=== PATIENT | female | born 1980 | race Caucasian/White ===

== ENCOUNTER 2016-04-20 16:01 | Inpatient (IN) | payer OTHER ==
[2016-04-20 16:35] VITALS: BMI 33.7
[2016-04-20] MEDS ORDERED: METHADONE HCL 10 MG TABLET (FOR DETOX USE ONLY) PO ONE ×2 (16:47→23:00)
[2016-04-20] MEDS ORDERED: IBUPROFEN 400 MG TABLET (FP) PO PRN (16:47)
[2016-04-20] MEDS ORDERED: NICOTINE POLACRILEX 4 MG GUM BC PRN (16:47)
[2016-04-20] MEDS ORDERED: guaiFENesin/D-METHORPHAN HB 10 ML UNIT-DOSE CUPS PO PRN (16:47)
[2016-04-20] MEDS ORDERED: LOPERAMIDE HCL 2 MG CAPSULE PO PRN (16:47)
[2016-04-20] MEDS ORDERED: MAGNESIUM HYDROX 2400MG/30ML ORAL SUSPENSION 30 ML CUP PO PRN (16:47)
[2016-04-20] MEDS ORDERED: P-EPHED 60MG/TRIPROLIDI 2.5MG TABLET PO PRN (16:47)
[2016-04-20] MEDS ORDERED: MENTHOL/PHENOL 1 EACH UD MM PRN (16:47)
[2016-04-20] MEDS ORDERED: MAGNESIUM CITRATE 300 ML BOTTLE PO PRN (16:47)
[2016-04-20] MEDS ORDERED: hydrOXYzine PAMOATE 50 MG CAPSULE (FP) PO PRN (16:47)
[2016-04-20] MEDS ORDERED: ACETAMINOPHEN 325 MG TABLET (FP) PO PRN (16:47)
[2016-04-20] MEDS ORDERED: MAG HYDROX/AL HYDROX/SIMETH 30 ML UNIT-DOSE CUP PO PRN (16:47)
[2016-04-20] MEDS ORDERED: ALBUTEROL SO4 6.7 GM HFA INHALER IH PRN (16:50)
--- NOTE | 2016-04-20 16:57 | HP ---
COWS - Scale Resting Pulse: 1= [place] 81-100 Sweatin=Flushed/Facial Moisture Restless Observation: 3= Extraneous Movement Pupil Size: 2= Moderately Dilated Bone or Joint Aches: 2= Severe Diffuse Aches Runny Nose/ Eye Tearin= Runny Nose/Eyes GI Upset > 30mins: 2= Nausea/Diarrhea Tremor Observation: 2= Slight Tremor Visible Yawning Observation: 1= 1-2x During Session Anxiety or Irritability: 2=Irritable/Anxious Goose Flesh Skin: 0=Smooth Skin COWS Score: 19 Admission ROS S - HPI Chief Complaint: WITHDRAWAL SX. Allergies/Adverse Reactions: Allergies Allergy/AdvReac Type Severity Reaction Status Date / Time No Known Allergies Allergy Verified 04/20/16 16:07 History of Present Illness: 35 Y/O WOMAN WITH A LONG HX. OF HEROIN DEPENDENCE IS ADMITTED FOR DETOX. PT. HAS BEEN IN PREVIOUS DETOX,SHE DENIES BEING DRUG FREE FOR A SIGNIFICANT AMOUNT OF TIME. Exam Limitations: No Limitations - Ebola screening Have you traveled outside of the country in the last 21 days: No Have you had contact with anyone from an Ebola affected area: No Have you been sick,other than usual withdrawal symptoms: No Do you have a fever: No - Review of Systems Constitutional: Diaphoresis EENT: reports: Nose Congestion Respiratory: reports: Cough Cardiac: reports: No Symptoms Reported GI: reports: Nausea, Vomiting, Abdominal cramping : reports: No Symptoms Reported Musculoskeletal: reports: Back Pain, Joint Pain, Muscle Pain Integumentary: reports: Sweating Neuro: reports: Tingling, Tremors Endocrine: reports: No Symptoms Reported Hematology: reports: No Symptoms Reported Psychiatric: reports: Anxious Other Systems: Reviewed and Negative Patient History - Patient Medical History Hx Anemia: No Hx Asthma: Yes Hx Chronic Obstructive Pulmonary Disease (COPD): No Hx Cancer: No Hx Cardiac Disorders: No Hx Congestive Heart Failure: No Hx Hypertension: No (BODERLINE) Hx Hypercholesterolemia: No Hx Pacemaker: No HX Cerebrovascular Accident: No Hx Seizures: No Hx Diabetes: No Hx Gastrointestinal Disorders: No Hx Liver Disease: No Hx Genitourinary Disorders: No Hx Sexually Transmitted Disorders: No Hx Renal Disease (ESRD): No Hx Thyroid Disease: No Hx Human Immunodeficiency Virus (HIV): No Hx Hepatitis C: No Hx Depression: No Hx Suicide Attempt: No Hx Bipolar Disorder: Yes Hx Schizophrenia: No - Patient Surgical History Past Surgical History: Yes Hx Neurologic Surgery: No Hx Cataract Extraction: No Hx Cardiac Surgery: No Hx Lung Surgery: No Hx Breast Surgery: No Hx Breast Biopsy: No Hx Abdominal Surgery: No Hx Appendectomy: No Hx Cholecystectomy: No Hx Genitourinary Surgery: No Hx Section: No Hx Orthopedic Surgery: Yes (LEFT HAMMER TOE) Other Surgical History: WISDOM TEETH REMOVAL IN 2011 Anesthesia Reaction: No - PPD History Previous Implant?: Yes Documented Results: Negative w/proof Date: 10/31/15 Results: 0 mm PPD to be Administered?: No - Reproductive History Patient is a Female of Child Bearing Age (11 -55 yrs old): Yes Last Menstrual Period: 04/04/16 Patient : No - Smoking Cessation Smoking history: Current every day smoker Have you smoked in the past 12 months: Yes Aproximately how many cigarettes per day: 40 Cigars Per Day: 0 Hx Chewing Tobacco Use: No Initiated information on smoking cessation: Yes 'Breaking Loose' booklet given: 04/20/16 - Substance & Tx. History Hx Alcohol Use: No Hx Substance Use: Yes Substance Use Type: Heroin, Marijuana (WHENEVER AVAILABLE) Hx Substance Use Treatment: Yes (DETOX) - Substances Abused Heroin Route: Inhalation Frequency: Daily Amount used: 30 bags Age of first use: 34 Date of Last Use: 04/19/16 Family Disease History - Family Disease History Family Disease History: Other: Mother (HEROIN,HIV) Admission Physical Exam BHS - Vital Signs Vital Signs: Vital Signs - 24 hr 04/20/16 16:05 Temperature 98.9 F Pulse Rate 92 H Respiratory 18 Rate Blood Pressure 132/93 - Physical General Appearance: Yes: Tremorous, Irritable, Sweating, Anxious HEENTM: Yes: Nasal Congestion, Rhinorrhea Respiratory: Yes: Chest Non-Tender, Lungs Clear Neck: Yes: Supple Breast: Yes: Breast Exam Deferred Cardiology: Yes: Regular Rhythm, Regular Rate, S1, S2 Abdominal: Yes: Normal Bowel Sounds, Non Tender, Soft Genitourinary: Yes: Within Normal Limits Back: Yes: Within Normal Limits Musculoskeletal: Yes: Within Normal Limits Extremities: Yes: Tremors Neurological: Yes: Fully Oriented, Alert Integumentary: Yes: Diaphoresis Lymphatic: Yes: Within Normal Limits - Diagnostic (1) Asthma Current Visit: Yes Status: Acute Qualifiers: Asthma severity: mild intermittent Asthma complication type: uncomplicated Qualified Code(s): J45.20 - Mild intermittent asthma, uncomplicated (2) Cannabis dependence Current Visit: Yes Status: Acute (3) Nicotine dependence Current Visit: Yes Status: Acute Qualifiers: Nicotine product type: cigarettes Substance use status: uncomplicated Qualified Code(s): F17.210 - Nicotine dependence, cigarettes, uncomplicated (4) Opioid dependence with withdrawal Current Visit: Yes Status: Acute Cleared for Admission S - Detox or Rehab [facility] Level of Care: Medically Managed Detox Regimen/Protocol: Methadone [facility] Breath Alcohol Content Breath Alcohol Content: 0 Urine Pregancy Test - Result Urine Test Results: Negative- NO Line Present Urine Drug Screen - Results Drug Screen Negative: No Urine Drug Screen Results: THC-Marijuana, OPI-Opiates, MTD-Methadone
[2016-04-20] MEDS: NICOTINE 21 MG/24 HOURS TOPICAL PATCH TD SCH (17:49)
[2016-04-20] MEDS: diazePAM 5 MG TABLET PO PRN ×2 (17:50→22:33)
[2016-04-20] MEDS: THIAMINE HCL 100 MG TABLET (FP) PO SCH (22:33)
[2016-04-20] MEDS: diphenhydrAMINE HCL 50 MG CAPSULE PO PRN (22:33)
--- NOTE | 2016-04-21 09:45 | EKG ---
Test Reason : Blood Pressure : / mmHG Vent. Rate : 066 BPM Atrial Rate : 066 BPM P-R Int : 124 ms QRS Dur : 082 ms QT Int : 420 ms P-R-T Axes : 070 074 051 degrees QTc Int : 440 ms NORMAL SINUS RHYTHM POSSIBLE LEFT ATRIAL ENLARGEMENT NO PREVIOUS ECGS AVAILABLE Confirmed by DELVIN CADE MD ([id number]) on 04/21/2016 9:44:51 AM Referred By: Confirmed By:DELVIN CADE MD
[2016-04-21] MEDS ORDERED: METHADONE HCL 10 MG TABLET (FOR DETOX USE ONLY) PO ONE (10:00)
[2016-04-21 10:16] LABS: MCH 26.4 pg (25.7-33.7); MCHC 32.7 g/dl (32.0-36.0); MEAN CELL VOLUME 80.7 fl (80-96); MEAN PLT VOLUME 8.5 fl (7.5-11.1); PLATELET COUNT 259 K/MM3 (134-434); RDW 14.9 % (11.6-15.6); WHITE BLOOD COUNT 9.6 K/mm3 (4.0-10.0)
[2016-04-21 10:23] LABS: URINE APPEARANCE CLEAR; URINE BILIRUBIN NEGATIVE (NEGATIVE); URINE BLOOD NEGATIVE (NEGATIVE); URINE COLOR LTYELLOW; URINE GLUCOSE (UA) NEGATIVE (NEGATIVE); URINE KETONE NEGATIVE (NEGATIVE); URINE LEUK ESTERASE TRACE (NEGATIVE); URINE NITRITE NEGATIVE (NEGATIVE); URINE PROTEIN NEGATIVE (NEGATIVE); URINE UROBILINOGEN NEGATIVE E.U./dl (0.2-1.0)
[2016-04-21 10:25] LABS: URINE BACTERIA RARE /hpf (NONE SEEN); URINE MUCUS RARE; URINE RBC 3 /hpf (0-3); URINE WBC 3 /hpf (3-5)
[2016-04-21 10:39] LABS: ALBUMIN 3.5 g/dl (3.4-5.0); ANION GAP 9 (8-16); CALCIUM 8.8 mg/dL (8.5-10.1); CO2 27 mmol/L (21-32); GLUCOSE,RANDOM 85 mg/dL (74-106)
[2016-04-21 10:44] LABS: ALK PHOS 65 U/L (45-117); BILIRUBIN,TOTAL 0.3 mg/dL (0.2-1.0); CREATININE 0.8 mg/dL (0.55-1.02); SGOT/AST 17 U/L (15-37); SGPT/ALT 27 U/L (12-78); TOT PROT 6.6 g/dl (6.4-8.2)
[2016-04-21] MEDS: PRENATAL VITAMINS W/ FOLIC ACID TABLET (FP) PO SCH (10:46)
[2016-04-21] MEDS: NICOTINE 21 MG/24 HOURS TOPICAL PATCH TD SCH (10:46)
[2016-04-21] MEDS: diazePAM 5 MG TABLET PO PRN ×3 (10:47→22:16)
[2016-04-21 12:27] LABS: HIV 1 & 2 AB NEGATIVE; HIV 1 AGp24 NEGATIVE
--- NOTE | 2016-04-21 14:53 | PN ---
BHS COWS - Scale Resting Pulse: 1= [place] 81-100 Sweatin=Flushed/Facial Moisture Restless Observation: 1= Difficult to Sit Still Pupil Size: 0= Normal to Room Light Bone or Joint Aches: 2= Severe Diffuse Aches Runny Nose/ Eye Tearin= Runny Nose/Eyes GI Upset > 30mins: 2= Nausea/Diarrhea Tremor Observation of Outstretched Hands: 2= Slight Tremor Visible Yawning Observation: 1= 1-2x During Session Anxiety or Irritability: 2=Irritable/Anxious Goose Flesh Skin: 0=Smooth Skin COWS Score: 15 BHS Progress Note (SOAP) Subjective: ANXIETY,SWEATING,INTERRUPTED SLEEP,RESTLESS Objective: 04/21/16 14:52 Last Vital Signs Temp Pulse Resp BP Pulse Ox 98.6 F 86 18 135/71 04/21/16 10:00 04/21/16 14:00 04/21/16 14:00 04/21/16 14:00 Laboratory Last Values WBC 9.6 K/mm3 (4.0-10.0) 04/21/16 07:20 RBC 5.00 M/mm3 (3.60-5.2) 04/21/16 07:20 Hgb 13.2 GM/dL (10.7-15.3) 04/21/16 07:20 Hct 40.4 % (32.4-45.2) 04/21/16 07:20 MCV 80.7 fl (80-96) 04/21/16 07:20 MCHC 32.7 g/dl (32.0-36.0) 04/21/16 07:20 RDW 14.9 % (11.6-15.6) 04/21/16 07:20 Plt Count 259 K/MM3 (134-434) 04/21/16 07:20 MPV 8.5 fl (7.5-11.1) 04/21/16 07:20 Sodium 141 mmol/L (136-145) 04/21/16 07:20 Potassium 4.1 mmol/L (3.5-5.1) 04/21/16 07:20 Chloride 105 mmol/L (98-107) 04/21/16 07:20 Carbon Dioxide 27 mmol/L (21-32) 04/21/16 07:20 Anion Gap 9 (8-16) 04/21/16 07:20 BUN 10 mg/dL (7-18) D 04/21/16 07:20 Creatinine 0.8 mg/dL (0.55-1.02) 04/21/16 07:20 Creat Clearance w eGFR > 60 (>60) 04/21/16 07:20 Random Glucose 85 mg/dL (74-106) 04/21/16 07:20 Calcium 8.8 mg/dL (8.5-10.1) 04/21/16 07:20 Total Bilirubin 0.3 mg/dL (0.2-1.0) 04/21/16 07:20 AST 17 U/L (15-37) D 04/21/16 07:20 ALT 27 U/L (12-78) 04/21/16 07:20 Alkaline Phosphatase 65 U/L (45-117) 04/21/16 07:20 Total Protein 6.6 g/dl (6.4-8.2) 04/21/16 07:20 Albumin 3.5 g/dl (3.4-5.0) 04/21/16 07:20 Urine Color Ltyellow 04/21/16 07:20 Urine Appearance Clear 04/21/16 07:20 Urine pH 6.0 (5.0-8.0) 04/21/16 07:20 Ur Specific [place] 1.016 (1.001-1.035) 04/21/16 07:20 Urine Protein Negative (NEGATIVE) 04/21/16 07:20 Urine Glucose (UA) Negative (NEGATIVE) 04/21/16 07:20 Urine Ketones Negative (NEGATIVE) 04/21/16 07:20 Urine Blood Negative (NEGATIVE) 04/21/16 07:20 Urine Nitrite Negative (NEGATIVE) 04/21/16 07:20 Urine Bilirubin Negative (NEGATIVE) 04/21/16 07:20 Urine Urobilinogen Negative E.U./dl (0.2-1.0) 04/21/16 07:20 Ur Leukocyte Esterase Trace (NEGATIVE) H D 04/21/16 07:20 Urine RBC 3 /hpf (0-3) 04/21/16 07:20 Urine WBC 3 /hpf (3-5) 04/21/16 07:20 Ur Epithelial Cells Rare /hpf (FEW) 04/21/16 07:20 Urine Bacteria Rare /hpf (NONE SEEN) 04/21/16 07:20 Urine Mucus Rare 04/21/16 07:20 RPR Titer Reactive 1:8 (NONREACTIVE) H 04/21/16 07:20 HIV 1&2 Antibody Screen Negative 04/21/16 07:20 HIV P24 Antigen Negative 04/21/16 07:20 LABS NOTED Assessment: 04/21/16 14:53 WITHDRAWAL SX. Plan: CONTINUE DETOX
[2016-04-21] MEDS: THIAMINE HCL 100 MG TABLET (FP) PO SCH (22:16)
[2016-04-21] MEDS: diphenhydrAMINE HCL 50 MG CAPSULE PO PRN (22:16)
[2016-04-22] MEDS ORDERED: ZOLPIDEM TARTRATE 5 MG TABLET PO STA (08:05)
--- NOTE | 2016-04-22 09:10 | CONSULT ---
[facility] Psychiatric Consult - Data Date of interview: 04/22/16 Admission source: [facility] Identifying data: This is 35 years old female with history of Bipolar disorder intoxicated with: Alcohol, Opioids, Cannabis and Nicotine Substance Abuse History: - Smoking Cessation. Smoking history: Current every day smoker. Have you smoked in the past 12 months: Yes. Aproximately how many cigarettes per day: 40. Cigars Per Day: 0. Hx Chewing Tobacco Use: No. Initiated information on smoking cessation: Yes. 'Breaking Loose' booklet given : 04/20/16. - Substance & Tx. History. Hx Alcohol Use: No. Hx Substance Use: Yes. Substance Use Type: Heroin, Marijuana (WHENEVER AVAILABLE). Hx Substance Use Treatment: Yes (DETOX). - Substances Abused. Heroin. Route: Inhalation. Frequency: Daily. Amount used: 30 bags. Age of first use: 34. Date of Last Use: 04/19/16 Medical History: Syncope history Psychiatric History: Patient reports to carry Bipolar disorder, reports takig prior to admission: Seroquel 100mg po qhs. Ambien 10mg po qhs Physical/Sexual Abuse/Trauma History: Denies Additional Comment: Seroquel 100mg po qhs. Ambien 10mg po qhs Mental Status Exam - Mental Status Exam Alert and Oriented to: Person Cognitive Function: Fair Patient Appearance: Unkempt Mood: Sad Affect: Flat Patient Behavior: Cooperative Speech Pattern: Delayed Voice Loudness: Mildly Soft/Quiet Thought Process: Goal Oriented Thought Disorder: Being Controlled Hallucinations: Denies Suicidal Ideation: Denies Insight/Judgement: Fair Sleep: Difficulty falling asleep Appetite: Fair Muscle strength/Tone: Normal Gait/Station: Normal Additional Comments: Seroquel 100mg po qhs. Ambien 10mg po qhs Psychiatric Findings - Problem List ([place] 1, 2,3) (1) Cannabis dependence Current Visit: Yes Status: Acute (2) Nicotine dependence Current Visit: Yes Status: Acute Qualifiers: Nicotine product type: cigarettes Substance use status: uncomplicated Qualified Code(s): F17.210 - Nicotine dependence, cigarettes, uncomplicated (3) Opioid dependence with withdrawal Current Visit: Yes Status: Acute (4) Drug-induced mood disorder Current Visit: No Status: Acute (5) Bipolar disorder Current Visit: No Status: Suspected - Initial Treatment Plan Initial Treatment Plan: Seroquel 100mg po qhs. Ambien 10mg po qhs
[2016-04-22] MEDS ORDERED: METHADONE HCL 5 MG TABLET (FOR DETOX USE ONLY) PO ONE (10:00)
[2016-04-22] MEDS: PRENATAL VITAMINS W/ FOLIC ACID TABLET (FP) PO SCH (10:19)
[2016-04-22] MEDS: diazePAM 5 MG TABLET PO PRN ×3 (10:20→22:15)
[2016-04-22] MEDS: NICOTINE 21 MG/24 HOURS TOPICAL PATCH TD SCH (10:20)
--- NOTE | 2016-04-22 10:59 | PN ---
S COWS - Scale Resting Pulse: 1= [place] 81-100 Sweatin= Chills/Flushing Restless Observation: 1= Difficult to Sit Still Pupil Size: 1= Pupils >than Normal Bone or Joint Aches: 2= Severe Diffuse Aches Runny Nose/ Eye Tearin= Nasal Congestion GI Upset > 30mins: 2= Nausea/Diarrhea Tremor Observation of Outstretched Hands: 2= Slight Tremor Visible Yawning Observation: 1= 1-2x During Session Anxiety or Irritability: 2=Irritable/Anxious Goose Flesh Skin: 3=Piloerection COWS Score: 17 BHS Progress Note (SOAP) Subjective: nausea, sweats, interrupted sleep, anxiety, tremor Objective: 04/22/16 10:58 Vital Signs - 24 hr 04/21/16 04/21/16 04/21/16 14:00 18:01 21:37 Temperature 97.7 F 98.2 F Pulse Rate 86 90 57 L Respiratory 18 20 16 Rate Blood Pressure 135/71 128/68 132/79 04/22/16 04/22/16 04/22/16 00:30 03:30 05:04 Temperature 97.9 F Pulse Rate 53 L Respiratory 18 18 18 Rate Blood Pressure 116/55 04/22/16 10:00 Temperature 98.1 F Pulse Rate 84 Respiratory 18 Rate Blood Pressure 123/83 Laboratory Tests 04/21/16 04/21/16 04/21/16 07:20 07:20 07:20 WBC 9.6 RBC 5.00 Hgb 13.2 Hct 40.4 MCV 80.7 MCHC 32.7 RDW 14.9 Plt Count 259 MPV 8.5 Sodium 141 Potassium 4.1 Chloride 105 Carbon Dioxide 27 Anion Gap 9 BUN 10 D Creatinine 0.8 Creat Clearance w eGFR > 60 Random Glucose 85 Calcium 8.8 Total Bilirubin 0.3 AST 17 D ALT 27 Alkaline Phosphatase 65 Total Protein 6.6 Albumin 3.5 Urine Color Urine Appearance Urine pH Ur Specific [place] Urine Protein Urine Glucose (UA) Urine Ketones Urine Blood Urine Nitrite Urine Bilirubin Urine Urobilinogen Ur Leukocyte Esterase Urine RBC Urine WBC Ur Epithelial Cells Urine Bacteria Urine Mucus RPR Titer T.pallidum Ab (MHA) HIV 1&2 Antibody Screen Negative HIV P24 Antigen Negative 04/21/16 04/21/16 07:20 07:20 WBC RBC Hgb Hct MCV MCHC RDW Plt Count MPV Sodium Potassium Chloride Carbon Dioxide Anion Gap BUN Creatinine Creat Clearance w eGFR Random Glucose Calcium Total Bilirubin AST ALT Alkaline Phosphatase Total Protein Albumin Urine Color Ltyellow Urine Appearance Clear Urine pH 6.0 Ur Specific [place] 1.016 Urine Protein Negative Urine Glucose (UA) Negative Urine Ketones Negative Urine Blood Negative Urine Nitrite Negative Urine Bilirubin Negative Urine Urobilinogen Negative Ur Leukocyte Esterase Trace H D Urine RBC 3 Urine WBC 3 Ur Epithelial Cells Rare Urine Bacteria Rare Urine Mucus Rare RPR Titer Reactive 1:8 H T.pallidum Ab (MHA) Non reactive HIV 1&2 Antibody Screen HIV P24 Antigen Assessment: 04/22/16 10:59 rpr +ve, confirmatory test neg, false pos+ no treatment necessary, withdrawal sx Plan: cont detox, fluids, encoruage ambualtion
[2016-04-22] MEDS: THIAMINE HCL 100 MG TABLET (FP) PO SCH (22:15)
[2016-04-22] MEDS: QUEtiapine FUMARATE 100 MG TABLET (FP) PO SCH (22:15)
[2016-04-22] MEDS: ZOLPIDEM TARTRATE 10 MG TABLET (PARK CARE ONLY) PO PRN (22:15)
[2016-04-23] MEDS ORDERED: METHADONE HCL 5 MG TABLET (FOR DETOX USE ONLY) PO ONE (10:00)
[2016-04-23] MEDS: PRENATAL VITAMINS W/ FOLIC ACID TABLET (FP) PO SCH (10:11)
[2016-04-23] MEDS: NICOTINE 21 MG/24 HOURS TOPICAL PATCH TD SCH (10:12)
[2016-04-23] MEDS: diazePAM 5 MG TABLET PO PRN ×2 (10:12→14:35)
--- NOTE | 2016-04-23 10:30 | PN ---
BHS Progress Note (SOAP) Subjective: nausea back pain sweats shakes interrupted sleep Objective: 04/23/16 10:29 Vital Signs Temperature 98.8 F 04/23/16 09:38 Pulse Rate 83 04/23/16 09:38 Respiratory Rate 16 04/23/16 09:38 Blood Pressure 112/74 04/23/16 09:38 O2 Sat by Pulse Oximetry (%) awake/alert ambulating no acute distress Assessment: 04/23/16 10:30 withdrawal sx Plan: continue detox increase fluids lidocaine patch motrin/tylenol prn
[2016-04-23] MEDS ORDERED: ONDANSETRON *ODT* 4 MG TABLET SL PRN (10:32)
[2016-04-23] MEDS: LIDOCAINE 5% TOPICAL PATCH TP SCH (12:35)
[2016-04-23] MEDS: THIAMINE HCL 100 MG TABLET (FP) PO SCH (22:19)
[2016-04-23] MEDS: QUEtiapine FUMARATE 100 MG TABLET (FP) PO SCH (22:19)
[2016-04-23] MEDS: ZOLPIDEM TARTRATE 10 MG TABLET (PARK CARE ONLY) PO PRN (22:19)
--- NOTE | 2016-04-24 09:35 | DS ---
[facility] Detox Discharge Summary Admission Date: 04/20/16 Discharge Date: 04/24/16 - History Present History: Cannabis Dependence, Opioid Dependence - Physical Exam Results Vital Signs: Vital Signs Temperature 98.2 F 04/24/16 06:33 Pulse Rate 68 04/24/16 06:33 Respiratory Rate 18 04/24/16 06:33 Blood Pressure 107/53 04/24/16 06:33 O2 Sat by Pulse Oximetry (%) - Treatment Hospital Course: Detox Protocol Followed, Detoxed Safely, Responded well, Discharged Condition Good - Medication Discharge Medications: Ambulatory Orders Gabapentin [Neurontin -] 300 mg PO Q8H 10/29/15 Quetiapine Fumarate [Seroquel] 100 tab PO BID 10/29/15 Sertraline HCl [Zoloft] 50 mg PO DAILY 10/29/15 Tramadol HCl [Ultram] 50 mg PO TID PRN 10/29/15 Quetiapine Fumarate [Seroquel -] 100 mg PO HS #30 tablet 10/30/15 Sertraline HCl [Zoloft -] 50 mg PO DAILY #30 tablet 10/30/15 Zolpidem Tartrate [Ambien] 10 mg PO HS #14 tablet MDD 10 10/30/15 Albuterol Sulfate Inhaler - [Ventolin HFA Inhaler -] 2 puff IH Q4H PRN #1 inhaler 11/03/15 Quetiapine Fumarate [Seroquel] 100 mg PO HS #30 tablet 04/22/16 Zolpidem Tartrate [Ambien] 10 mg PO HS #14 tablet MDD 10 04/22/16 - Diagnosis (1) Asthma Current Visit: Yes Status: Acute Qualifiers: Asthma severity: mild intermittent Asthma complication type: uncomplicated Qualified Code(s): J45.20 - Mild intermittent asthma, uncomplicated (2) Cannabis dependence Current Visit: Yes Status: Chronic (3) Nicotine dependence Current Visit: Yes Status: Chronic Qualifiers: Nicotine product type: cigarettes Substance use status: uncomplicated Qualified Code(s): F17.210 - Nicotine dependence, cigarettes, uncomplicated (4) Opioid dependence with withdrawal Current Visit: Yes Status: Chronic (5) Drug-induced mood disorder Current Visit: Yes Status: Chronic (6) Bipolar disorder Current Visit: Yes Status: Chronic Qualifiers: Current episode severity: unspecified - AMA Did Patient Leave Against Medical Advice: No
[2016-04-24] MEDS: PRENATAL VITAMINS W/ FOLIC ACID TABLET (FP) PO SCH (09:56)
[2016-04-24] MEDS: LIDOCAINE 5% TOPICAL PATCH TP SCH (09:56)
[2016-04-24] MEDS: NICOTINE 21 MG/24 HOURS TOPICAL PATCH TD SCH (09:57)
[2016-04-24] MEDS ORDERED: METHADONE HCL 10 MG TABLET (FOR DETOX USE ONLY) PO ONE (10:00)
[2016-04-24 10:02] VITALS: BP 90/51; PULSE 90; TEMP 95.5
[2016-04-25] MEDS ORDERED: METHADONE HCL 5 MG TABLET (FOR DETOX USE ONLY) PO ONE (06:00)
== END 2016-04-24 10:19 | disposition home or self-care (01) | DRG 773 ==
LOC: YASAS 16:01 → Y6N 16:33
PROVIDERS: ADMIT Internal Medicine Addiction Medicine; ATTEND Internal Medicine Addiction Medicine
PROC: HZ2ZZZZ Detoxification Services for Substance Abuse Treatment (ICD-10-PCS; principal; 2016-04-24)
DX: F11.23 Opioid dependence with withdrawal (principal); F12.20 Cannabis dependence, uncomplicated; F17.210 Nicotine dependence, cigarettes, uncomplicated; F19.24 Other psychoactive substance dependence with psychoactive substance-induced mood disorder; F32.9 Major depressive disorder, single episode, unspecified; J45.20 Mild intermittent asthma, uncomplicated
CPT/HCPCS: 36415; 80053; 81003; 81015; 85027; 86593; 86780; 87389; 93005; 93010

== ENCOUNTER 2016-11-20 18:53 | Inpatient (IN) | payer OTHER ==
[2016-11-20 19:15] VITALS: BMI 33.3
--- NOTE | 2016-11-20 19:36 | HP ---
COWS - Scale Resting Pulse: 1= [place] 81-100 Sweatin= Chills/Flushing Restless Observation: 1= Difficult to Sit Still Pupil Size: 0= Normal to Room Light Bone or Joint Aches: 2= Severe Diffuse Aches Runny Nose/ Eye Tearin= Runny Nose/Eyes GI Upset > 30mins: 1= Stomach Cramp Tremor Observation: 2= Slight Tremor Visible Yawning Observation: 1= 1-2x During Session Anxiety or Irritability: 2=Irritable/Anxious Goose Flesh Skin: 0=Smooth Skin COWS Score: 13 Admission [facility] Chief Complaint: withdrawal sx Allergies/Adverse Reactions: Allergies Allergy/AdvReac Type Severity Reaction Status Date / Time No Known Allergies Allergy Verified 04/20/16 16:07 History of Present Illness: 36 years old female with long history of opiate marijuana nicotine dependence has asthma and bipolar ii is admitted to detox Exam Limitations: No Limitations - Ebola screening Have you traveled outside of the country in the last 21 days: No Have you had contact with anyone from an Ebola affected area: No Have you been sick,other than usual withdrawal symptoms: No Do you have a fever: No - Review of Systems Constitutional: Changes in sleep, Weight Stable EENT: reports: No Symptoms Reported Respiratory: reports: SOB with Exertion Cardiac: reports: No Symptoms Reported GI: reports: Nausea, Poor Fluid Intake, Abdominal cramping : reports: No Symptoms Reported Musculoskeletal: reports: Back Pain, Joint Pain, Muscle Pain, Neck Pain Integumentary: reports: No Symptoms Reported Neuro: reports: Tremors Endocrine: reports: No Symptoms Reported Hematology: reports: No Symptoms Reported Psychiatric: reports: Judgement Intact, Orientated x3, Anxious, Depressed Other Systems: Reviewed and Negative Patient History - Patient Medical History Hx Anemia: No Hx Asthma: Yes Hx Chronic Obstructive Pulmonary Disease (COPD): No Hx Cancer: No Hx Cardiac Disorders: No Hx Congestive Heart Failure: No Hx Hypertension: No (BODERLINE) Hx Hypercholesterolemia: No Hx Pacemaker: No HX Cerebrovascular Accident: No Hx Seizures: No Hx Dementia: No Hx Diabetes: No Hx Gastrointestinal Disorders: No Hx Liver Disease: No Hx Genitourinary Disorders: No Hx Sexually Transmitted Disorders: No Hx Renal Disease (ESRD): No Hx Thyroid Disease: No Hx Human Immunodeficiency Virus (HIV): No Hx Hepatitis C: No Hx Depression: No Hx Suicide Attempt: Yes (04/2016 overdose) Hx Bipolar Disorder: Yes Hx Schizophrenia: No - Patient Surgical History Past Surgical History: Yes Hx Neurologic Surgery: No Hx Cataract Extraction: No Hx Cardiac Surgery: No Hx Lung Surgery: No Hx Breast Surgery: No Hx Breast Biopsy: No Hx Abdominal Surgery: No Hx Appendectomy: No Hx Cholecystectomy: No Hx Genitourinary Surgery: No Hx Section: No Hx Orthopedic Surgery: Yes (LEFT HAMMER TOE) Hx Hysterectomy: No Other Surgical History: WISDOM TEETH REMOVAL IN 2011 Anesthesia Reaction: No - PPD History Previous Implant?: Yes Documented Results: Negative w/proof Implanted On Prior [facility] Admission?: Yes Date: 10/31/15 Results: 0 mm PPD to be Administered?: Yes - Reproductive History Patient is a Female of Child Bearing Age (11 -55 yrs old): Yes Last Menstrual Period: 11/20/16 Patient : No - Smoking Cessation Smoking history: Current every day smoker Have you smoked in the past 12 months: Yes Aproximately how many cigarettes per day: 40 Cigars Per Day: 0 Hx Chewing Tobacco Use: No Initiated information on smoking cessation: Yes 'Breaking Loose' booklet given: 11/20/16 - Substance & Tx. History Hx Alcohol Use: No Hx Substance Use: Yes Substance Use Type: Marijuana, Opiates Hx Substance Use Treatment: Yes (04/20-04/24/16 [facility] - Substances Abused Heroin Route: Inhalation Frequency: Daily Amount used: 2 G Age of first use: 36 Date of Last Use: 11/20/16 Marijuana/Hashish Route: Smoking Frequency: 1-2 times per week Amount used: 1 JOINT Age of first use: 36 Date of Last Use: 11/20/16 Family Disease History - Family Disease History Family Disease History: Other: Father (NO CONTACT), Mother (HEROIN,HIV), Brother (NO CONTACT), Sister (NO CONTACT) Admission Physical Exam BHS - Vital Signs Vital Signs: Vital Signs - 24 hr 11/20/16 19:12 Temperature 98.9 F Pulse Rate 95 H Respiratory 15 Rate Blood Pressure 149/81 - Physical General Appearance: Yes: Appropriately Dressed, Mild Distress, Obese, Tremorous , Irritable, Sweating, Anxious HEENTM: Yes: Hearing grossly Normal, Normal ENT Inspection, Normocephalic, Normal Voice Respiratory: Yes: Chest Non-Tender, Lungs Clear, Normal Breath Sounds, No Respiratory Distress, No Accessory Muscle Use Neck: Yes: Supple, Trachea in good position Breast: Yes: Breasts Symetrical Cardiology: Yes: Regular Rhythm, S1, S2, Tachycardia Abdominal: Yes: Non Tender, Soft, Decreased BS Genitourinary: Yes: Within Normal Limits Back: Yes: Normal Inspection Musculoskeletal: Yes: full range of Motion, Gait Steady, Back pain, Muscle Pain Extremities: Yes: Normal Inspection, Normal Range of Motion, Non-Tender, Tremors Neurological: Yes: Fully Oriented, Alert, Motor Strength 5/5, Normal Response, Depressed Affect Integumentary: Yes: Warm Lymphatic: Yes: Within Normal Limits - Diagnostic (1) Asthma Current Visit: Yes Status: Chronic Qualifiers: Asthma severity: mild intermittent Asthma complication type: uncomplicated Qualified Code(s): J45.20 - Mild intermittent asthma, uncomplicated (2) Nicotine dependence Current Visit: Yes Status: Acute Qualifiers: Nicotine product type: cigarettes Substance use status: in withdrawal Qualified Code(s): F17.213 - Nicotine dependence, cigarettes, with withdrawal (3) Opioid dependence with withdrawal Current Visit: Yes Status: Acute (4) Mildly obese Current Visit: Yes Status: Chronic Cleared for Admission [facility] - Detox or Rehab [facility] Level of Care: Medically Managed Detox Regimen/Protocol: Methadone [facility] Breath Alcohol Content Breath Alcohol Content: 0 Urine Pregancy Test - Result Urine Test Results: Negative- NO Line Present Urine Drug Screen - Results Drug Screen Negative: No Urine Drug Screen Results: THC-Marijuana, OPI-Opiates, MTD-Methadone
[2016-11-20] MEDS ORDERED: guaiFENesin/D-METHORPHAN HB 10 ML UNIT-DOSE CUPS PO PRN (19:38)
[2016-11-20] MEDS ORDERED: MAG HYDROX/AL HYDROX/SIMETH 30 ML UNIT-DOSE CUP PO PRN (19:38)
[2016-11-20] MEDS ORDERED: METHADONE HCL 10 MG TABLET (FOR DETOX USE ONLY) PO ONE ×3 (19:38→23:00)
[2016-11-20] MEDS ORDERED: diphenhydrAMINE HCL 50 MG CAPSULE PO PRN (19:38)
[2016-11-20] MEDS ORDERED: ACETAMINOPHEN 325 MG TABLET (FP) PO PRN (19:38)
[2016-11-20] MEDS ORDERED: P-EPHED 60MG/TRIPROLIDI 2.5MG TABLET PO PRN (19:38)
[2016-11-20] MEDS ORDERED: MENTHOL/PHENOL 1 EACH UD MM PRN (19:38)
[2016-11-20] MEDS ORDERED: NICOTINE POLACRILEX 4 MG GUM BC PRN (19:38)
[2016-11-20] MEDS ORDERED: LOPERAMIDE HCL 2 MG CAPSULE PO PRN (19:38)
[2016-11-20] MEDS ORDERED: MAGNESIUM CITRATE 300 ML BOTTLE PO PRN (19:38)
[2016-11-20] MEDS ORDERED: IBUPROFEN 400 MG TABLET (FP) PO PRN (19:38)
[2016-11-20] MEDS ORDERED: ALBUTEROL SO4 18 GM HFA INHALER IH PRN (19:39)
[2016-11-20] MEDS: diazePAM 5 MG TABLET PO PRN (21:58)
[2016-11-20] MEDS: GABAPENTIN 300 MG CAPSULE (FP) PO SCH (21:58)
[2016-11-20] MEDS: THIAMINE HCL 100 MG TABLET (FP) PO SCH (23:34)
[2016-11-21] MEDS: diazePAM 5 MG TABLET PO PRN ×4 (05:25→22:11)
[2016-11-21] MEDS: GABAPENTIN 300 MG CAPSULE (FP) PO SCH ×3 (05:26→22:10)
[2016-11-21] MEDS ORDERED: ZOLPIDEM TARTRATE 5 MG TABLET PO PRN (08:54)
--- NOTE | 2016-11-21 09:05 | CONSULT ---
[facility] Psychiatric Consult - Data Date of interview: 11/21/16 Admission source: [facility] Identifying data: This is 36 years old female with psychiatrioc hospitalization history, history of Bipolar disorder intoxicated with: Opioids, Cannabis and Nicotine Substance Abuse History: - Smoking Cessation. Smoking history: Current every day smoker. Have you smoked in the past 12 months: Yes. Aproximately how many cigarettes per day: 40. Cigars Per Day: 0. Hx Chewing Tobacco Use: No. Initiated information on smoking cessation: Yes. 'Breaking Loose' booklet given : 11/20/16. - Substance & Tx. History. Hx Alcohol Use: No. Hx Substance Use: Yes. Substance Use Type: Marijuana, Opiates. Hx Substance Use Treatment: Yes ( 04/20-04/24/16 [facility]). - Substances Abused. Heroin. Route: Inhalation. Frequency: Daily. Amount used: 2 G. Age of first use: 36. Date of Last Use: 11/20/16. Marijuana/Hashish. Route: Smoking. Frequency: 1-2 times per week. Amount used: 1 JOINT. Age of first use: 36. Date of Last Use: 11/20/16 Medical History: Asthma, Syncope, Psychiatric History: Patient reports to carry Bipolar Disorder with most recent psychiatric admission on about 10 years ago, reports has been stable on: Seroquel 600mg po qhs. Gabvapentin 300mg po tid. Ambien 10mg po qhs Physical/Sexual Abuse/Trauma History: Denies Additional Comment: Seroquel 600mg po qhs. Gabvapentin 300mg po tid. Ambien 10mg po qhs Mental Status Exam - Mental Status Exam Alert and Oriented to: Person Cognitive Function: Fair Patient Appearance: Unkempt Mood: Apprehensive Affect: Mood Congruent Patient Behavior: Cooperative Speech Pattern: Appropriate Voice Loudness: Mildly Soft/Quiet Thought Process: Goal Oriented Thought Disorder: Being Controlled Hallucinations: Denies Suicidal Ideation: Denies Homicidal Ideation: Denies Insight/Judgement: Fair Sleep: Difficulty falling asleep Appetite: Weight gain Muscle strength/Tone: Normal Gait/Station: Shuffling Additional Comments: Seroquel 600mg po qhs. Gabvapentin 300mg po tid. Ambien 10mg po qhs Psychiatric Findings - Problem List ([place] 1, 2,3) (1) Nicotine dependence Current Visit: Yes Status: Acute Qualifiers: Nicotine product type: cigarettes Substance use status: in withdrawal Qualified Code(s): F17.213 - Nicotine dependence, cigarettes, with withdrawal (2) Opioid dependence with withdrawal Current Visit: Yes Status: Acute (3) Bipolar disorder Current Visit: No Status: Chronic Qualifiers: Current episode severity: unspecified (4) Cannabis dependence Current Visit: No Status: Chronic (5) Drug-induced mood disorder Current Visit: No Status: Chronic - Initial Treatment Plan Initial Treatment Plan: Seroquel 300mg po qhs. Gabvapentin 300mg po tid. Ambien 10mg po qhs
[2016-11-21] MEDS ORDERED: TRIMETHOBENZAMIDE HCL 300 MG CAPSULE PO PRN (09:26)
[2016-11-21 09:49] LABS: MCHC 31.9 g/dl (32.0-36.0); MEAN CELL VOLUME 78.5 fl (80-96); MEAN PLT VOLUME 8.2 fl (7.5-11.1); PLATELET COUNT 270 K/MM3 (134-434); RDW 16.5 % (11.6-15.6); WHITE BLOOD COUNT 7.1 K/mm3 (4.0-10.0)
--- NOTE | 2016-11-21 09:50 | PN ---
BHS COWS - Scale Resting Pulse: 0= [place] 80 or Below Sweatin=Flushed/Facial Moisture Restless Observation: 1= Difficult to Sit Still Pupil Size: 0= Normal to Room Light Bone or Joint Aches: 2= Severe Diffuse Aches Runny Nose/ Eye Tearin= Nasal Congestion GI Upset > 30mins: 1= Stomach Cramp Tremor Observation of Outstretched Hands: 2= Slight Tremor Visible Yawning Observation: 2= >3x During Session Anxiety or Irritability: 2=Irritable/Anxious Goose Flesh Skin: 3=Piloerection COWS Score: 16 BHS Progress Note (SOAP) Subjective: chills sweats interrupted sleep agitation anxiety teary eyes Objective: 11/21/16 09:49 Vital Signs Temperature 98.2 F 11/21/16 09:39 Pulse Rate 78 11/21/16 09:39 Respiratory Rate 16 11/21/16 09:39 Blood Pressure 130/72 11/21/16 09:39 O2 Sat by Pulse Oximetry (%) labs pending awake/alert ambulating no acute distress Assessment: 11/21/16 09:50 withdrawal sx Plan: continue detox increase fluids labs pending
[2016-11-21 10:00] LABS: ALBUMIN 3.5 g/dl (3.4-5.0); ANION GAP 7 (8-16); CALCIUM 9.4 mg/dL (8.5-10.1); CO2 28 mmol/L (21-32); GLUCOSE,RANDOM 86 mg/dL (74-106); SGOT/AST 21 U/L (15-37); SGPT/ALT 32 U/L (12-78)
[2016-11-21] MEDS ORDERED: TRIMETHOBENZAMIDE HCL 200MG/2ML INJ IM ONE (10:00)
[2016-11-21] MEDS ORDERED: METHADONE HCL 10 MG TABLET (FOR DETOX USE ONLY) PO ONE (10:00)
[2016-11-21 10:02] LABS: ALK PHOS 76 U/L (45-117); BILIRUBIN,TOTAL 0.4 mg/dL (0.2-1.0); CREATININE 0.8 mg/dL (0.55-1.02); TOT PROT 6.6 g/dl (6.4-8.2)
[2016-11-21] MEDS: PRENATAL VITAMINS W/ FOLIC ACID TABLET (FP) PO SCH (10:32)
[2016-11-21] MEDS: MAGNESIUM HYDROX 2400MG/30ML ORAL SUSPENSION 30 ML CUP PO PRN (10:33)
[2016-11-21] MEDS: NICOTINE 21 MG/24 HOURS TOPICAL PATCH TD SCH (10:34)
--- NOTE | 2016-11-21 11:33 | EKG ---
Test Reason : Blood Pressure : / mmHG Vent. Rate : 078 BPM Atrial Rate : 078 BPM P-R Int : 128 ms QRS Dur : 078 ms QT Int : 384 ms P-R-T Axes : 068 077 058 degrees QTc Int : 437 ms NORMAL SINUS RHYTHM WITH SINUS ARRHYTHMIA NORMAL ECG WHEN COMPARED WITH ECG OF 20-APR-2016 17:57, NO SIGNIFICANT CHANGE WAS FOUND Confirmed by JINA SOL MD ([id number]) on 11/21/2016 11:32:40 AM Referred By: Confirmed By:JINA SOL MD
[2016-11-21 13:08] LABS: HIV 1 & 2 AB NEGATIVE; HIV 1 AGp24 NEGATIVE
[2016-11-21 16:14] LABS: URINE APPEARANCE SLCLOUDY; URINE BILIRUBIN NEGATIVE (NEGATIVE); URINE BLOOD 3+ (NEGATIVE); URINE COLOR YELLOW; URINE GLUCOSE (UA) NEGATIVE (NEGATIVE); URINE KETONE NEGATIVE (NEGATIVE); URINE LEUK ESTERASE NEGATIVE (NEGATIVE); URINE NITRITE NEGATIVE (NEGATIVE); URINE PROTEIN NEGATIVE (NEGATIVE); URINE UROBILINOGEN NEGATIVE mg/dL (0.2-1.0)
[2016-11-21 16:44] LABS: URINE BACTERIA RARE /hpf (NONE SEEN); URINE MUCUS RARE; URINE RBC 697 /hpf (0-3); URINE WBC 1 /hpf (3-5)
[2016-11-21] MEDS: THIAMINE HCL 100 MG TABLET (FP) PO SCH (22:00)
[2016-11-21] MEDS: ZOLPIDEM TARTRATE 10 MG TABLET (PARK CARE ONLY) PO PRN (22:10)
[2016-11-21] MEDS: QUEtiapine FUMARATE 300 MG TABLET PO SCH (22:10)
[2016-11-22] MEDS: GABAPENTIN 300 MG CAPSULE (FP) PO SCH ×3 (05:55→22:16)
[2016-11-22] MEDS: diazePAM 5 MG TABLET PO PRN ×4 (05:55→22:16)
[2016-11-22] MEDS ORDERED: METHADONE HCL 5 MG TABLET (FOR DETOX USE ONLY) PO ONE (10:00)
[2016-11-22] MEDS: PRENATAL VITAMINS W/ FOLIC ACID TABLET (FP) PO SCH (10:33)
[2016-11-22] MEDS: NICOTINE 21 MG/24 HOURS TOPICAL PATCH TD SCH (10:33)
--- NOTE | 2016-11-22 10:59 | PN ---
BHS COWS - Scale Resting Pulse: 1= [place] 81-100 Sweatin=Flushed/Facial Moisture Restless Observation: 1= Difficult to Sit Still Pupil Size: 0= Normal to Room Light Bone or Joint Aches: 2= Severe Diffuse Aches Runny Nose/ Eye Tearin= Nasal Congestion GI Upset > 30mins: 0= None Tremor Observation of Outstretched Hands: 2= Slight Tremor Visible Yawning Observation: 2= >3x During Session Anxiety or Irritability: 2=Irritable/Anxious Goose Flesh Skin: 0=Smooth Skin COWS Score: 13 BHS Progress Note (SOAP) Subjective: agitation anxiety sweats shakes nausea interrupted sleep Objective: 11/22/16 10:58 Vital Signs Temperature 97.5 F L 11/22/16 10:00 Pulse Rate 83 11/22/16 10:00 Respiratory Rate 18 11/22/16 10:00 Blood Pressure 117/62 11/22/16 10:00 O2 Sat by Pulse Oximetry (%) Laboratory Tests 11/21/16 11/21/16 11/21/16 07:00 07:00 07:00 WBC 7.1 RBC 4.98 Hgb 12.5 Hct 39.1 MCV 78.5 L MCH 25.0 L MCHC 31.9 L RDW 16.5 H D Plt Count 270 MPV 8.2 Sodium 143 Potassium 4.3 Chloride 108 H Carbon Dioxide 28 Anion Gap 7 L BUN 10 Creatinine 0.8 Creat Clearance w eGFR > 60 Random Glucose 86 Calcium 9.4 Total Bilirubin 0.4 D AST 21 D ALT 32 Alkaline Phosphatase 76 Total Protein 6.6 Albumin 3.5 Urine Color Urine Appearance Urine pH Ur Specific [place] Urine Protein Urine Glucose (UA) Urine Ketones Urine Blood Urine Nitrite Urine Bilirubin Urine Urobilinogen Ur Leukocyte Esterase Urine RBC Urine WBC Ur Epithelial Cells Urine Bacteria Urine Mucus RPR Titer Reactive 1:4 H D T.pallidum Ab (MHA) Previously reactive HIV 1&2 Antibody Screen HIV P24 Antigen 11/21/16 11/21/16 07:00 10:30 WBC RBC Hgb Hct MCV MCH MCHC RDW Plt Count MPV Sodium Potassium Chloride Carbon Dioxide Anion Gap BUN Creatinine Creat Clearance w eGFR Random Glucose Calcium Total Bilirubin AST ALT Alkaline Phosphatase Total Protein Albumin Urine Color Yellow Urine Appearance Slcloudy Urine pH 7.0 Ur Specific [place] 1.020 Urine Protein Negative Urine Glucose (UA) Negative Urine Ketones Negative Urine Blood 3+ H Urine Nitrite Negative Urine Bilirubin Negative Urine Urobilinogen Negative Ur Leukocyte Esterase Negative Urine RBC 697 Urine WBC 1 Ur Epithelial Cells Rare Urine Bacteria Rare Urine Mucus Rare RPR Titer T.pallidum Ab (MHA) HIV 1&2 Antibody Screen Negative HIV P24 Antigen Negative awake/alert ambulating no acute distress Assessment: 11/22/16 10:59 withdrawal sx Plan: continue detox increase fluids
[2016-11-22] MEDS: MAGNESIUM HYDROX 2400MG/30ML ORAL SUSPENSION 30 ML CUP PO PRN (18:58)
[2016-11-22] MEDS: ZOLPIDEM TARTRATE 10 MG TABLET (PARK CARE ONLY) PO PRN (22:15)
[2016-11-22] MEDS: QUEtiapine FUMARATE 300 MG TABLET PO SCH (22:15)
[2016-11-22] MEDS: THIAMINE HCL 100 MG TABLET (FP) PO SCH (22:16)
[2016-11-23] MEDS: diazePAM 5 MG TABLET PO PRN ×4 (05:48→19:33)
[2016-11-23] MEDS: GABAPENTIN 300 MG CAPSULE (FP) PO SCH ×4 (05:48→22:16)
[2016-11-23] MEDS ORDERED: METHADONE HCL 5 MG TABLET (FOR DETOX USE ONLY) PO ONE (10:00)
[2016-11-23] MEDS: PRENATAL VITAMINS W/ FOLIC ACID TABLET (FP) PO SCH (10:16)
[2016-11-23] MEDS: NICOTINE 21 MG/24 HOURS TOPICAL PATCH TD SCH (10:17)
--- NOTE | 2016-11-23 12:01 | PN ---
BHS Progress Note (SOAP) Subjective: nausa, sweats, interrutped sleep, anxiety, temors Objective: 11/23/16 12:00 Vital Signs - 8 hr 11/23/16 11/23/16 06:00 10:16 Temperature 97.2 F L 97.9 F Pulse Rate 83 93 H Respiratory 18 18 Rate Blood Pressure 125/74 104/67 Laboratory Tests 11/21/16 11/21/16 11/21/16 07:00 07:00 07:00 WBC 7.1 RBC 4.98 Hgb 12.5 Hct 39.1 MCV 78.5 L MCH 25.0 L MCHC 31.9 L RDW 16.5 H D Plt Count 270 MPV 8.2 Sodium 143 Potassium 4.3 Chloride 108 H Carbon Dioxide 28 Anion Gap 7 L BUN 10 Creatinine 0.8 Creat Clearance w eGFR > 60 Random Glucose 86 Calcium 9.4 Total Bilirubin 0.4 D AST 21 D ALT 32 Alkaline Phosphatase 76 Total Protein 6.6 Albumin 3.5 Urine Color Urine Appearance Urine pH Ur Specific [place] Urine Protein Urine Glucose (UA) Urine Ketones Urine Blood Urine Nitrite Urine Bilirubin Urine Urobilinogen Ur Leukocyte Esterase Urine RBC Urine WBC Ur Epithelial Cells Urine Bacteria Urine Mucus RPR Titer Reactive 1:4 H D T.pallidum Ab (MHA) Previously reactive HIV 1&2 Antibody Screen HIV P24 Antigen 11/21/16 11/21/16 07:00 10:30 WBC RBC Hgb Hct MCV MCH MCHC RDW Plt Count MPV Sodium Potassium Chloride Carbon Dioxide Anion Gap BUN Creatinine Creat Clearance w eGFR Random Glucose Calcium Total Bilirubin AST ALT Alkaline Phosphatase Total Protein Albumin Urine Color Yellow Urine Appearance Slcloudy Urine pH 7.0 Ur Specific [place] 1.020 Urine Protein Negative Urine Glucose (UA) Negative Urine Ketones Negative Urine Blood 3+ H Urine Nitrite Negative Urine Bilirubin Negative Urine Urobilinogen Negative Ur Leukocyte Esterase Negative Urine RBC 697 Urine WBC 1 Ur Epithelial Cells Rare Urine Bacteria Rare Urine Mucus Rare RPR Titer T.pallidum Ab (MHA) HIV 1&2 Antibody Screen Negative HIV P24 Antigen Negative Assessment: 11/23/16 12:00 withdrawal sx Plan: cont detox, fluids
[2016-11-23] MEDS: QUEtiapine FUMARATE 300 MG TABLET PO SCH (22:16)
[2016-11-23] MEDS: ZOLPIDEM TARTRATE 10 MG TABLET (PARK CARE ONLY) PO PRN (22:16)
[2016-11-23] MEDS: THIAMINE HCL 100 MG TABLET (FP) PO SCH (22:16)
[2016-11-24] MEDS: GABAPENTIN 300 MG CAPSULE (FP) PO SCH ×3 (05:31→22:31)
[2016-11-24] MEDS ORDERED: METHADONE HCL 10 MG TABLET (FOR DETOX USE ONLY) PO ONE (10:00)
[2016-11-24] MEDS: PRENATAL VITAMINS W/ FOLIC ACID TABLET (FP) PO SCH (10:24)
[2016-11-24] MEDS: NICOTINE 21 MG/24 HOURS TOPICAL PATCH TD SCH (10:24)
--- NOTE | 2016-11-24 10:38 | PN ---
BHS Progress Note (SOAP) Subjective: nausea, sweats, interrupted sleep, anxiety, tremors Objective: 11/24/16 10:38 Vital Signs - 8 hr 11/24/16 11/24/16 03:30 06:28 Temperature 97.5 F L Pulse Rate 68 Respiratory 18 16 Rate Blood Pressure 101/56 Laboratory Tests 11/21/16 11/21/16 11/21/16 07:00 07:00 07:00 WBC 7.1 RBC 4.98 Hgb 12.5 Hct 39.1 MCV 78.5 L MCH 25.0 L MCHC 31.9 L RDW 16.5 H D Plt Count 270 MPV 8.2 Sodium 143 Potassium 4.3 Chloride 108 H Carbon Dioxide 28 Anion Gap 7 L BUN 10 Creatinine 0.8 Creat Clearance w eGFR > 60 Random Glucose 86 Calcium 9.4 Total Bilirubin 0.4 D AST 21 D ALT 32 Alkaline Phosphatase 76 Total Protein 6.6 Albumin 3.5 Urine Color Urine Appearance Urine pH Ur Specific [place] Urine Protein Urine Glucose (UA) Urine Ketones Urine Blood Urine Nitrite Urine Bilirubin Urine Urobilinogen Ur Leukocyte Esterase Urine RBC Urine WBC Ur Epithelial Cells Urine Bacteria Urine Mucus RPR Titer Reactive 1:4 H D T.pallidum Ab (MHA) Previously reactive HIV 1&2 Antibody Screen HIV P24 Antigen 11/21/16 11/21/16 07:00 10:30 WBC RBC Hgb Hct MCV MCH MCHC RDW Plt Count MPV Sodium Potassium Chloride Carbon Dioxide Anion Gap BUN Creatinine Creat Clearance w eGFR Random Glucose Calcium Total Bilirubin AST ALT Alkaline Phosphatase Total Protein Albumin Urine Color Yellow Urine Appearance Slcloudy Urine pH 7.0 Ur Specific [place] 1.020 Urine Protein Negative Urine Glucose (UA) Negative Urine Ketones Negative Urine Blood 3+ H Urine Nitrite Negative Urine Bilirubin Negative Urine Urobilinogen Negative Ur Leukocyte Esterase Negative Urine RBC 697 Urine WBC 1 Ur Epithelial Cells Rare Urine Bacteria Rare Urine Mucus Rare RPR Titer T.pallidum Ab (MHA) HIV 1&2 Antibody Screen Negative HIV P24 Antigen Negative Assessment: 11/24/16 10:38 withdrawal sx Plan: cont detox
[2016-11-24] MEDS ORDERED: DOCUSATE SODIUM 100 MG CAPSULE (FP) PO ONE (13:15)
[2016-11-24] MEDS ORDERED: DOCUSATE SODIUM 100 MG CAPSULE (FP) PO SCH (22:00)
[2016-11-24] MEDS: THIAMINE HCL 100 MG TABLET (FP) PO SCH (22:30)
[2016-11-24] MEDS: ZOLPIDEM TARTRATE 10 MG TABLET (PARK CARE ONLY) PO PRN (22:31)
[2016-11-24] MEDS: QUEtiapine FUMARATE 300 MG TABLET PO SCH (22:31)
[2016-11-25] MEDS ORDERED: METHADONE HCL 5 MG TABLET (FOR DETOX USE ONLY) PO ONE (06:00)
[2016-11-25 06:44] VITALS: BP 110/76; PULSE 62; TEMP 97.7
[2016-11-25] MEDS: GABAPENTIN 300 MG CAPSULE (FP) PO SCH (06:55)
--- NOTE | 2016-11-25 10:03 | DS ---
[facility] Detox Discharge Summary Admission Date: 11/20/16 Discharge Date: 11/25/16 - History Present History: Opioid Dependence Pertinent Past History: depression, insomnia, anxiety, bipolar do, syncope, nicotine dependence - Physical Exam Results Vital Signs: Vital Signs Temperature 97.7 F 11/25/16 06:43 Pulse Rate 62 11/25/16 06:43 Respiratory Rate 16 11/25/16 06:43 Blood Pressure 110/76 11/25/16 06:43 O2 Sat by Pulse Oximetry (%) Laboratory Tests 11/21/16 11/21/16 11/21/16 07:00 07:00 07:00 WBC 7.1 RBC 4.98 Hgb 12.5 Hct 39.1 MCV 78.5 L MCH 25.0 L MCHC 31.9 L RDW 16.5 H D Plt Count 270 MPV 8.2 Sodium 143 Potassium 4.3 Chloride 108 H Carbon Dioxide 28 Anion Gap 7 L BUN 10 Creatinine 0.8 Creat Clearance w eGFR > 60 Random Glucose 86 Calcium 9.4 Total Bilirubin 0.4 D AST 21 D ALT 32 Alkaline Phosphatase 76 Total Protein 6.6 Albumin 3.5 Urine Color Urine Appearance Urine pH Ur Specific [place] Urine Protein Urine Glucose (UA) Urine Ketones Urine Blood Urine Nitrite Urine Bilirubin Urine Urobilinogen Ur Leukocyte Esterase Urine RBC Urine WBC Ur Epithelial Cells Urine Bacteria Urine Mucus RPR Titer Reactive 1:4 H D T.pallidum Ab (MHA) Previously reactive HIV 1&2 Antibody Screen HIV P24 Antigen 11/21/16 11/21/16 07:00 10:30 WBC RBC Hgb Hct MCV MCH MCHC RDW Plt Count MPV Sodium Potassium Chloride Carbon Dioxide Anion Gap BUN Creatinine Creat Clearance w eGFR Random Glucose Calcium Total Bilirubin AST ALT Alkaline Phosphatase Total Protein Albumin Urine Color Yellow Urine Appearance Slcloudy Urine pH 7.0 Ur Specific [place] 1.020 Urine Protein Negative Urine Glucose (UA) Negative Urine Ketones Negative Urine Blood 3+ H Urine Nitrite Negative Urine Bilirubin Negative Urine Urobilinogen Negative Ur Leukocyte Esterase Negative Urine RBC 697 Urine WBC 1 Ur Epithelial Cells Rare Urine Bacteria Rare Urine Mucus Rare RPR Titer T.pallidum Ab (MHA) HIV 1&2 Antibody Screen Negative HIV P24 Antigen Negative microcytosis, h/o syphilis treated in past Pertinent Admission Physical Exam Findings: withdrawal sx - Treatment Hospital Course: Detox Protocol Followed, Detoxed Safely, Responded well, Discharged Condition Good, Rehab Referral Accepted - Medication Discharge Medications: Ambulatory Orders Gabapentin [Neurontin -] 300 mg PO Q8H 10/29/15 Tramadol HCl [Ultram] 50 mg PO TID PRN 10/29/15 Albuterol Sulfate Inhaler - [Ventolin HFA Inhaler -] 2 puff IH Q4H PRN #1 inhaler 11/03/15 Zolpidem Tartrate [Ambien] 10 mg PO HS #14 tablet MDD 10 04/22/16 Quetiapine Fumarate [Seroquel] 600 mg PO HS 11/20/16 Quetiapine Fumarate [Seroquel -] 300 mg PO HS #30 tab 11/21/16 Zolpidem Tartrate [Ambien] 0 mg PO HS #14 tablet MDD 10 11/21/16 - Diagnosis (1) Nicotine dependence Current Visit: Yes Status: Chronic Qualifiers: Nicotine product type: cigarettes Substance use status: uncomplicated Qualified Code(s): F17.210 - Nicotine dependence, cigarettes, uncomplicated (2) Asthma Current Visit: Yes Status: Chronic Qualifiers: Asthma severity: mild intermittent Asthma complication type: uncomplicated Qualified Code(s): J45.20 - Mild intermittent asthma, uncomplicated (3) Cannabis dependence Current Visit: Yes Status: Chronic (4) Drug-induced mood disorder Current Visit: Yes Status: Chronic (5) Mildly obese Current Visit: Yes Status: Chronic (6) Opioid dependence with withdrawal Current Visit: Yes Status: Chronic (7) Syncope Current Visit: No Status: Inactive (8) Bipolar disorder Current Visit: Yes Status: Chronic Qualifiers: Current episode severity: unspecified - AMA Did Patient Leave Against Medical Advice: No
== END 2016-11-25 10:19 | disposition home or self-care (01) | DRG 773 ==
LOC: YASAS 18:53 → Y6N 19:52
PROVIDERS: ADMIT Internal Medicine Addiction Medicine; ATTEND Internal Medicine Addiction Medicine
PROC: HZ2ZZZZ Detoxification Services for Substance Abuse Treatment (ICD-10-PCS; principal; 2016-11-20)
DX: F11.23 Opioid dependence with withdrawal (principal); F12.20 Cannabis dependence, uncomplicated; F17.210 Nicotine dependence, cigarettes, uncomplicated; F19.24 Other psychoactive substance dependence with psychoactive substance-induced mood disorder; F31.9 Bipolar disorder, unspecified; J45.909 Unspecified asthma, uncomplicated; E66.8 Other obesity; Z68.33 Body mass index [BMI] 33.0-33.9, adult; Z86.79 Personal history of other diseases of the circulatory system; Z91.5 Personal history of self-harm
CPT/HCPCS: 36415; 80053; 81003; 81015; 85027; 86593; 86780; 87389; 93005; 93010

== ENCOUNTER 2017-02-27 11:34 | Inpatient (IN) | payer OTHER ==
[2017-02-27 12:29] VITALS: BMI 30.2
--- NOTE | 2017-02-27 14:12 | HP ---
COWS - Scale Resting Pulse: 2= [place] 101-120 Sweatin=Flushed/Facial Moisture Restless Observation: 1= Difficult to Sit Still Pupil Size: 0= Normal to Room Light Bone or Joint Aches: 2= Severe Diffuse Aches Runny Nose/ Eye Tearin= Runny Nose/Eyes GI Upset > 30mins: 2= Nausea/Diarrhea Tremor Observation: 2= Slight Tremor Visible Yawning Observation: 2= >3x During Session Anxiety or Irritability: 2=Irritable/Anxious Goose Flesh Skin: 3=Piloerection COWS Score: 20 Admission ROS S - HPI Chief Complaint: I fell and need help. Allergies/Adverse Reactions: Allergies Allergy/AdvReac Type Severity Reaction Status Date / Time No Known Allergies Allergy Verified 02/27/17 13:43 History of Present Illness: pt is a 36yr old female with a history of heroin dependence seeking detox for treatment. Exam Limitations: No Limitations - Ebola screening Have you traveled outside of the country in the last 21 days: No Have you had contact with anyone from an Ebola affected area: No Have you been sick,other than usual withdrawal symptoms: No Do you have a fever: No - Review of Systems Constitutional: Chills, Diaphoresis, Loss of Appetite, Changes in sleep EENT: reports: Tearing Respiratory: reports: No Symptoms reported Cardiac: reports: No Symptoms Reported GI: reports: Constipated, Poor Appetite, Poor Fluid Intake : reports: No Symptoms Reported Musculoskeletal: reports: Joint Pain, Muscle Pain Integumentary: reports: Bruising, Flushing, Rash, Sweating Neuro: reports: Headache, Tingling Endocrine: reports: Excessive Sweating, Flushing, Intolerance to Cold, Intolerance to Heat Hematology: reports: No Symptoms Reported Psychiatric: reports: Judgement Intact, Mood/Affect Appropiate, Orientated x3, Agitated, Anxious Other Systems: Reviewed and Negative Patient History - Patient Medical History Hx Anemia: No Hx Asthma: Yes Hx Chronic Obstructive Pulmonary Disease (COPD): No Hx Cancer: No Hx Cardiac Disorders: No Hx Congestive Heart Failure: No Hx Hypertension: No Hx Hypercholesterolemia: No Hx Pacemaker: No HX Cerebrovascular Accident: No Hx Seizures: No Hx Dementia: No Hx Diabetes: No Hx Gastrointestinal Disorders: No Hx Liver Disease: No Hx Genitourinary Disorders: No Hx Sexually Transmitted Disorders: No Hx Renal Disease (ESRD): No Hx Thyroid Disease: No Hx Human Immunodeficiency Virus (HIV): No Hx Hepatitis C: No Hx Depression: Yes Hx Suicide Attempt: Yes (Tried to overdose in 2016) Hx Bipolar Disorder: Yes (AND ANXIETY DISORDER) Hx Schizophrenia: No - Patient Surgical History Past Surgical History: Yes Hx Neurologic Surgery: No Hx Cataract Extraction: No Hx Cardiac Surgery: No Hx Lung Surgery: No Hx Breast Surgery: No Hx Breast Biopsy: No Hx Abdominal Surgery: No Hx Appendectomy: No Hx Cholecystectomy: No Hx Genitourinary Surgery: No Hx Section: No Hx Orthopedic Surgery: Yes (LEFT HAMMER TOE) Hx Hysterectomy: No Anesthesia Reaction: No - PPD History Previous Implant?: Yes Documented Results: Negative w/proof Implanted On Prior R Admission?: Yes Date: 11/22/16 Results: 0 mm PPD to be Administered?: No - Reproductive History Patient is a Female of Child Bearing Age (11 -55 yrs old): Yes Last Menstrual Period: 02/17/17 Patient : No - Smoking Cessation Smoking history: Current every day smoker Have you smoked in the past 12 months: Yes Aproximately how many cigarettes per day: 30 Cigars Per Day: 0 Hx Chewing Tobacco Use: No Initiated information on smoking cessation: Yes 'Breaking Loose' booklet given: 02/27/17 - Substance & Tx. History Hx Alcohol Use: No Hx Substance Use: Yes Substance Use Type: Heroin, Marijuana Hx Substance Use Treatment: Yes ([facility] 01/2017) - Substances Abused Heroin Route: Inhalation Frequency: Daily Amount used: 3 grams Age of first use: 35 Date of Last Use: 02/27/17 Marijuana/Hashish Route: Smoking Frequency: 1-3 times last 30 days Amount used: 1 joint Age of first use: 14 Date of Last Use: 02/27/17 Family Disease History - Family Disease History Family Disease History: Other: Father (NO CONTACT), Mother (HEROIN,HIV), Brother (NO CONTACT), Sister (NO CONTACT) Admission Physical Exam BHS - Vital Signs Vital Signs: Vital Signs - 24 hr 02/27/17 02/27/17 12:27 12:45 Temperature 98.6 F 98.6 F Pulse Rate 106 H 106 H Respiratory 20 20 Rate Blood Pressure 132/96 132/96 - Physical General Appearance: Yes: Appropriately Dressed, Moderate Distress, Tremorous, Irritable, Sweating, Anxious HEENTM: Yes: Normal Voice, Nasal Congestion, Rhinorrhea Respiratory: Yes: Lungs Clear, Normal Breath Sounds, No Respiratory Distress Neck: Yes: No masses,lesions,Nodules Breast: Yes: Within Normal Limits Cardiology: Yes: Regular Rhythm, Regular Rate, S1, S2 Abdominal: Yes: Normal Bowel Sounds, Non Tender, Soft Genitourinary: Yes: Within Normal Limits Back: Yes: Normal Inspection Musculoskeletal: Yes: full range of Motion, Back pain Extremities: Yes: Normal Capillary Refill, Non-Tender, Tremors Neurological: Yes: Fully Oriented, Alert, Normal Response Integumentary: Yes: Normal Color, Diaphoresis Lymphatic: Yes: Within Normal Limits - Diagnostic (1) Asthma Current Visit: Yes Status: Chronic Qualifiers: Asthma severity: mild Asthma complication type: uncomplicated (2) Cannabis dependence Current Visit: Yes Status: Chronic (3) Nicotine dependence Current Visit: Yes Status: Chronic Qualifiers: Nicotine product type: cigarettes Substance use status: uncomplicated Qualified Code(s): F17.210 - Nicotine dependence, cigarettes, uncomplicated (4) OCD (obsessive compulsive disorder) Current Visit: Yes Status: Chronic (5) Opioid dependence with withdrawal Current Visit: Yes Status: Chronic (6) PTSD (post-traumatic stress disorder) Current Visit: Yes Status: Chronic Cleared for Admission [facility] - Detox or Rehab [facility] Level of Care: Medically Managed Detox Regimen/Protocol: Methadone [facility] Breath Alcohol Content Breath Alcohol Content: 0 Urine Pregancy Test - Result Urine Test Results: Negative- NO Line Present Urine Drug Screen - Results Drug Screen Negative: No Urine Drug Screen Results: THC-Marijuana, OPI-Opiates, BZO-Benzodiazepines
[2017-02-27] MEDS ORDERED: NICOTINE POLACRILEX 4 MG GUM BUC PRN (14:15)
[2017-02-27] MEDS ORDERED: MAGNESIUM HYDROX 2400MG/30ML ORAL SUSPENSION 30 ML CUP PO PRN (14:15)
[2017-02-27] MEDS ORDERED: P-EPHED 60MG/TRIPROLIDI 2.5MG TABLET PO PRN (14:15)
[2017-02-27] MEDS ORDERED: IBUPROFEN 400 MG TABLET (FP) PO PRN (14:15)
[2017-02-27] MEDS ORDERED: MAGNESIUM CITRATE 300 ML BOTTLE PO PRN (14:15)
[2017-02-27] MEDS ORDERED: guaiFENesin/D-METHORPHAN HB 10 ML UNIT-DOSE CUPS PO PRN (14:15)
[2017-02-27] MEDS ORDERED: LOPERAMIDE HCL 2 MG CAPSULE PO PRN (14:15)
[2017-02-27] MEDS ORDERED: MAG HYDROX/AL HYDROX/SIMETH 30 ML UNIT-DOSE CUP PO PRN (14:15)
[2017-02-27] MEDS ORDERED: MENTHOL/PHENOL 1 EACH UD MM PRN (14:15)
[2017-02-27] MEDS ORDERED: ACETAMINOPHEN 325 MG TABLET (FP) PO PRN (14:15)
[2017-02-27] MEDS ORDERED: ALBUTEROL SO4 18 GM HFA INHALER IH PRN (14:17)
[2017-02-27] MEDS ORDERED: ALBUTEROL SO4 2.5/IPRATROPIUM 0.5 INH SOL 3 ML VIAL.NEB. NEB PRN (14:17)
[2017-02-27] MEDS ORDERED: ALBUTEROL SO4 2.5/IPRATROPIUM 0.5 INH SOL 3 ML VIAL.NEB. NEB ONE (15:17)
[2017-02-27] MEDS ORDERED: METHADONE HCL 10 MG TABLET (FOR DETOX USE ONLY) PO ONE ×2 (15:19→23:00)
[2017-02-27] MEDS: diazePAM 5 MG TABLET PO PRN ×2 (16:18→21:13)
[2017-02-27 16:41] LABS: URINE APPEARANCE CLOUDY; URINE BLOOD NEGATIVE (NEGATIVE); URINE COLOR AMBER; URINE GLUCOSE (UA) NEGATIVE (NEGATIVE); URINE KETONE TRACE (NEGATIVE); URINE LEUK ESTERASE NEGATIVE (NEGATIVE); URINE NITRITE NEGATIVE (NEGATIVE); URINE UROBILINOGEN 4.0 E.U/dl mg/dL (0.2-1.0)
[2017-02-27 16:45] LABS: URINE PROTEIN 1+ (NEGATIVE)
[2017-02-27 17:13] LABS: GRANULAR CASTS 11 /lpf; URINE BACTERIA RARE /hpf (NONE SEEN); URINE HYALINE CAST 18 /lpf; URINE MUCUS MANY; URINE RBC 6 /hpf (0-3); URINE WBC 3 /hpf (3-5)
[2017-02-27 19:24] LABS: URINE LEUK ESTERASE Negative (NEGATIVE)
[2017-02-27] MEDS: hydrOXYzine PAMOATE 50 MG CAPSULE (FP) PO PRN (22:45)
[2017-02-27] MEDS: THIAMINE HCL 100 MG TABLET (FP) PO SCH (22:45)
[2017-02-28 03:19] LABS: HIV 1 & 2 AB NEGATIVE; HIV 1 AGp24 NEGATIVE
[2017-02-28] MEDS: diazePAM 5 MG TABLET PO PRN ×3 (08:29→22:38)
[2017-02-28] MEDS ORDERED: METHADONE HCL 10 MG TABLET (FOR DETOX USE ONLY) PO ONE (10:00)
--- NOTE | 2017-02-28 10:50 | EKG ---
Test Reason : Blood Pressure : / mmHG Vent. Rate : 064 BPM Atrial Rate : 064 BPM P-R Int : 130 ms QRS Dur : 080 ms QT Int : 408 ms P-R-T Axes : 079 077 066 degrees QTc Int : 420 ms NORMAL SINUS RHYTHM NORMAL ECG WHEN COMPARED WITH ECG OF 25-JAN-2017 21:11, NO SIGNIFICANT CHANGE WAS FOUND Confirmed by MD TREY, GRETCHEN ([id number]) on 02/28/2017 10:50:35 AM Referred By: Confirmed By:GRETCHEN YANG MD
[2017-02-28] MEDS: NICOTINE 21 MG/24 HOURS TOPICAL PATCH TD SCH (10:53)
[2017-02-28] MEDS: PRENATAL VITAMINS W/ FOLIC ACID TABLET (FP) PO SCH (10:53)
[2017-02-28 11:11] LABS: MCH 25.7 pg (25.7-33.7); MCHC 32.3 g/dl (32.0-36.0); MEAN CELL VOLUME 79.5 fl (80-96); MEAN PLT VOLUME 8.9 fl (7.5-11.1); PLATELET COUNT 321 K/MM3 (134-434); RDW 15.6 % (11.6-15.6); WHITE BLOOD COUNT 14.5 K/mm3 (4.0-10.0)
[2017-02-28 11:12] LABS: ALBUMIN 4.1 g/dl (3.4-5.0); ANION GAP 7 (8-16); CALCIUM 9.4 mg/dL (8.5-10.1); CO2 30 mmol/L (21-32)
[2017-02-28 11:16] LABS: ALK PHOS 73 U/L (45-117); BILIRUBIN,TOTAL 0.3 mg/dL (0.2-1.0); CREATININE 0.9 mg/dL (0.55-1.02); GLUCOSE,RANDOM 129 mg/dL (74-106); SGOT/AST 15 U/L (15-37); SGPT/ALT 24 U/L (12-78); TOT PROT 7.1 g/dl (6.4-8.2)
--- NOTE | 2017-02-28 11:19 | PN ---
S COWS - Scale Resting Pulse: 0= [place] 80 or Below Sweatin=Flushed/Facial Moisture Restless Observation: 1= Difficult to Sit Still Pupil Size: 0= Normal to Room Light Bone or Joint Aches: 2= Severe Diffuse Aches Runny Nose/ Eye Tearin= Runny Nose/Eyes GI Upset > 30mins: 1= Stomach Cramp Tremor Observation of Outstretched Hands: 2= Slight Tremor Visible Yawning Observation: 2= >3x During Session Anxiety or Irritability: 2=Irritable/Anxious Goose Flesh Skin: 3=Piloerection COWS Score: 17 S Progress Note (SOAP) Subjective: body aches chills sweats interrupted sleep sweats shakes irritable Objective: 02/28/17 11:18 Vital Signs Temperature 98.1 F 02/28/17 10:00 Pulse Rate 67 02/28/17 10:00 Respiratory Rate 18 02/28/17 10:00 Blood Pressure 130/68 02/28/17 10:00 O2 Sat by Pulse Oximetry (%) Laboratory Tests 02/27/17 02/27/17 02/28/17 14:30 15:40 06:00 WBC 14.5 H D RBC 5.20 Hgb 13.4 Hct 41.4 MCV 79.5 L MCH 25.7 MCHC 32.3 RDW 15.6 Plt Count 321 MPV 8.9 Sodium Potassium Chloride Carbon Dioxide Anion Gap BUN Calcium Albumin Urine Color [place] Urine Appearance Cloudy Urine pH 5.0 Ur Specific [place] 1.028 Urine Protein 1+ H Urine Glucose (UA) Negative Urine Ketones Trace H Urine Blood Negative Urine Nitrite Negative Urine Bilirubin 2.0 Urine Urobilinogen 4.0 e.u/dl H Ur Leukocyte Esterase Negative Urine WBC (Auto) 3 Urine RBC (Auto) 6 Ur Epithelial Cells Rare Urine Bacteria Rare Hyaline Casts 18 Granular Casts 11 Urine Mucus Many HIV 1&2 Antibody Screen Negative HIV P24 Antigen Negative 02/28/17 06:00 WBC RBC Hgb Hct MCV MCH MCHC RDW Plt Count MPV Sodium 140 Potassium 3.9 Chloride 103 Carbon Dioxide 30 Anion Gap 7 L BUN 9 Calcium 9.4 Albumin 4.1 Urine Color Urine Appearance Urine pH Ur Specific [place] Urine Protein Urine Glucose (UA) Urine Ketones Urine Blood Urine Nitrite Urine Bilirubin Urine Urobilinogen Ur Leukocyte Esterase Urine WBC (Auto) Urine RBC (Auto) Ur Epithelial Cells Urine Bacteria Hyaline Casts Granular Casts Urine Mucus HIV 1&2 Antibody Screen HIV P24 Antigen repeat cbc and ua aaox3 lying in bed no acute distress Assessment: 02/28/17 11:18 withdrawal sx Plan: continue detox increase fluids f/u pending labs
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
[2017-02-28] MEDS ORDERED: cloNIDine HCL 0.1 MG TABLET PO ONE (12:16)
[2017-02-28] MEDS: GABAPENTIN 100 MG CAPSULE (FP) PO SCH ×2 (13:03→22:38)
--- NOTE | 2017-02-28 14:33 | PN ---
BHS Progress Note Note: discussed with pt regarding her rpr titers; pt states she was treated with pcn x 3 years ago however her titers are always high. Pt states she has had voice over artist check ups regarding this.
[2017-02-28] MEDS: QUEtiapine FUMARATE 50 MG TABLET PO SCH (22:38)
[2017-02-28] MEDS: THIAMINE HCL 100 MG TABLET (FP) PO SCH (22:38)
[2017-03-01] MEDS: GABAPENTIN 100 MG CAPSULE (FP) PO SCH ×3 (05:55→23:12)
[2017-03-01] MEDS: diazePAM 5 MG TABLET PO PRN ×4 (05:56→23:12)
[2017-03-01 09:37] LABS: BASOPHIL 0.2 % (0-2.0); EOSINOPHIL 0.5 % (0-4.5); MCH 25.4 pg (25.7-33.7); MCHC 31.9 g/dl (32.0-36.0); MEAN CELL VOLUME 79.7 fl (80-96); MEAN PLT VOLUME 8.5 fl (7.5-11.1); NEUTROPHILS 53.9 % (42.8-82.8); PLATELET COUNT 272 K/MM3 (134-434); RDW 15.3 % (11.6-15.6); WHITE BLOOD COUNT 9.6 K/mm3 (4.0-10.0)
[2017-03-01] MEDS ORDERED: METHADONE HCL 5 MG TABLET (FOR DETOX USE ONLY) PO ONE (10:00)
[2017-03-01] MEDS: cloNIDine HCL 0.1 MG TABLET PO SCH (10:24)
[2017-03-01] MEDS: PRENATAL VITAMINS W/ FOLIC ACID TABLET (FP) PO SCH (10:24)
[2017-03-01] MEDS: NICOTINE 21 MG/24 HOURS TOPICAL PATCH TD SCH (10:25)
--- NOTE | 2017-03-01 13:11 | PN ---
BHS COWS - Scale Resting Pulse: 0= [place] 80 or Below Sweatin=Flushed/Facial Moisture Restless Observation: 1= Difficult to Sit Still Pupil Size: 0= Normal to Room Light Bone or Joint Aches: 1= Mild Discomfort Runny Nose/ Eye Tearin= Runny Nose/Eyes GI Upset > 30mins: 2= Nausea/Diarrhea Tremor Observation of Outstretched Hands: 2= Slight Tremor Visible Yawning Observation: 1= 1-2x During Session Anxiety or Irritability: 2=Irritable/Anxious Goose Flesh Skin: 0=Smooth Skin COWS Score: 13 BHS Progress Note (SOAP) Subjective: Anxiety,tremors,sweating,body aches Objective: 03/01/17 13:10 Vital Signs - 8 hr 03/01/17 03/01/17 07:25 10:00 Temperature 97.2 F L 98.1 F Pulse Rate 57 L 74 Respiratory 16 18 Rate Blood Pressure 102/59 118/61 Laboratory Tests 02/27/17 02/27/17 02/28/17 14:30 15:40 06:00 WBC 14.5 H D RBC 5.20 Hgb 13.4 Hct 41.4 MCV 79.5 L MCH 25.7 MCHC 32.3 RDW 15.6 Plt Count 321 MPV 8.9 Neutrophils % Lymphocytes % Monocytes % Eosinophils % Basophils % Sodium Potassium Chloride Carbon Dioxide Anion Gap BUN Creatinine Creat Clearance w eGFR Random Glucose Calcium Total Bilirubin AST ALT Alkaline Phosphatase Total Protein Albumin Urine Color Esme Urine Appearance Cloudy Urine pH 5.0 Ur Specific [place] 1.028 Urine Protein 1+ H Urine Glucose (UA) Negative Urine Ketones Trace H Urine Blood Negative Urine Nitrite Negative Urine Bilirubin 2.0 Urine Urobilinogen 4.0 e.u/dl H Ur Leukocyte Esterase Negative Urine WBC (Auto) 3 Urine RBC (Auto) 6 Ur Epithelial Cells Rare Urine Bacteria Rare Hyaline Casts 18 Granular Casts 11 Urine Mucus Many RPR Titer T.pallidum Ab ([facility]) HIV 1&2 Antibody Screen Negative HIV P24 Antigen Negative 02/28/17 02/28/17 03/01/17 06:00 06:00 07:50 WBC 9.6 D RBC 5.31 H Hgb 13.5 Hct 42.4 MCV 79.7 L MCH 25.4 L MCHC 31.9 L RDW 15.3 Plt Count 272 MPV 8.5 Neutrophils % 53.9 Lymphocytes % 40.7 H Monocytes % 4.7 Eosinophils % 0.5 Basophils % 0.2 Sodium 140 Potassium 3.9 Chloride 103 Carbon Dioxide 30 Anion Gap 7 L BUN 9 Creatinine 0.9 Creat Clearance w eGFR > 60 Random Glucose 129 H D Calcium 9.4 Total Bilirubin 0.3 D AST 15 ALT 24 D Alkaline Phosphatase 73 Total Protein 7.1 Albumin 4.1 Urine Color Urine Appearance Urine pH Ur Specific [place] Urine Protein Urine Glucose (UA) Urine Ketones Urine Blood Urine Nitrite Urine Bilirubin Urine Urobilinogen Ur Leukocyte Esterase Urine WBC (Auto) Urine RBC (Auto) Ur Epithelial Cells Urine Bacteria Hyaline Casts Granular Casts Urine Mucus RPR Titer Reactive 1:4 H T.pallidum Ab ([facility]) Non reactive HIV 1&2 Antibody Screen HIV P24 Antigen labs noted Assessment: 03/01/17 13:11 Withdrawal sx. Plan: Continue detox
[2017-03-01] MEDS: QUEtiapine FUMARATE 50 MG TABLET PO SCH (23:12)
[2017-03-01] MEDS: THIAMINE HCL 100 MG TABLET (FP) PO SCH (23:12)
[2017-03-02 00:08] LABS: URINE APPEARANCE SLCLOUDY; URINE BILIRUBIN NEGATIVE (NEGATIVE); URINE BLOOD NEGATIVE (NEGATIVE); URINE COLOR AMBER; URINE GLUCOSE (UA) NEGATIVE (NEGATIVE); URINE KETONE TRACE (NEGATIVE); URINE LEUK ESTERASE NEGATIVE (NEGATIVE); URINE NITRITE NEGATIVE (NEGATIVE); URINE PROTEIN NEGATIVE (NEGATIVE); URINE UROBILINOGEN NEGATIVE mg/dL (0.2-1.0)
[2017-03-02] MEDS: GABAPENTIN 100 MG CAPSULE (FP) PO SCH ×3 (05:39→22:55)
[2017-03-02] MEDS: diazePAM 5 MG TABLET PO PRN ×2 (05:40→10:54)
[2017-03-02] MEDS ORDERED: METHADONE HCL 5 MG TABLET (FOR DETOX USE ONLY) PO ONE (10:00)
--- NOTE | 2017-03-02 10:34 | PN ---
BHS Progress Note (SOAP) Subjective: chill sweat anxiety interrupted sleep Objective: 03/02/17 10:33 Vital Signs Temperature 96.9 F L 03/02/17 06:58 Pulse Rate 50 L 03/02/17 06:58 Respiratory Rate 16 03/02/17 06:58 Blood Pressure 108/59 03/02/17 06:58 O2 Sat by Pulse Oximetry (%) Laboratory Last Values WBC 9.6 K/mm3 (4.0-10.0) D 03/01/17 07:50 RBC 5.31 M/mm3 (3.60-5.2) H 03/01/17 07:50 Hgb 13.5 GM/dL (10.7-15.3) 03/01/17 07:50 Hct 42.4 % (32.4-45.2) 03/01/17 07:50 MCV 79.7 fl (80-96) L 03/01/17 07:50 MCH 25.4 pg (25.7-33.7) L 03/01/17 07:50 MCHC 31.9 g/dl (32.0-36.0) L 03/01/17 07:50 RDW 15.3 % (11.6-15.6) 03/01/17 07:50 Plt Count 272 K/MM3 (134-434) 03/01/17 07:50 MPV 8.5 fl (7.5-11.1) 03/01/17 07:50 Neutrophils % 53.9 % (42.8-82.8) 03/01/17 07:50 Lymphocytes % 40.7 % (8-40) H 03/01/17 07:50 Monocytes % 4.7 % (3.8-10.2) 03/01/17 07:50 Eosinophils % 0.5 % (0-4.5) 03/01/17 07:50 Basophils % 0.2 % (0-2.0) 03/01/17 07:50 Sodium 140 mmol/L (136-145) 02/28/17 06:00 Potassium 3.9 mmol/L (3.5-5.1) 02/28/17 06:00 Chloride 103 mmol/L (98-107) 02/28/17 06:00 Carbon Dioxide 30 mmol/L (21-32) 02/28/17 06:00 Anion Gap 7 (8-16) L 02/28/17 06:00 BUN 9 mg/dL (7-18) 02/28/17 06:00 Creatinine 0.9 mg/dL (0.55-1.02) 02/28/17 06:00 Creat Clearance w eGFR > 60 (>60) 02/28/17 06:00 Random Glucose 129 mg/dL (74-106) H D 02/28/17 06:00 Calcium 9.4 mg/dL (8.5-10.1) 02/28/17 06:00 Total Bilirubin 0.3 mg/dL (0.2-1.0) D 02/28/17 06:00 AST 15 U/L (15-37) 02/28/17 06:00 ALT 24 U/L (12-78) D 02/28/17 06:00 Alkaline Phosphatase 73 U/L (45-117) 02/28/17 06:00 Total Protein 7.1 g/dl (6.4-8.2) 02/28/17 06:00 Albumin 4.1 g/dl (3.4-5.0) 02/28/17 06:00 Urine Color Esme 03/01/17 14:30 Urine Appearance Slcloudy 03/01/17 14:30 Urine pH 5.0 (5.0-8.0) 03/01/17 14:30 Ur Specific [place] 1.029 (1.001-1.035) 03/01/17 14:30 Urine Protein Negative (NEGATIVE) 03/01/17 14:30 Urine Glucose (UA) Negative (NEGATIVE) 03/01/17 14:30 Urine Ketones Trace (NEGATIVE) H 03/01/17 14:30 Urine Blood Negative (NEGATIVE) 03/01/17 14:30 Urine Nitrite Negative (NEGATIVE) 03/01/17 14:30 Urine Bilirubin Negative (NEGATIVE) 03/01/17 14:30 Urine Urobilinogen Negative mg/dL (0.2-1.0) 03/01/17 14:30 Ur Leukocyte Esterase Negative (NEGATIVE) 02/27/17 15:40 Urine WBC (Auto) 3 /hpf (3-5) 02/27/17 15:40 Urine RBC (Auto) 6 /hpf (0-3) 02/27/17 15:40 Ur Epithelial Cells Rare /HPF (FEW) 02/27/17 15:40 Urine Bacteria Rare /hpf (NONE SEEN) 02/27/17 15:40 Hyaline Casts 18 /lpf 02/27/17 15:40 Granular Casts 11 /lpf 02/27/17 15:40 Urine Mucus Many 02/27/17 15:40 RPR Titer Reactive 1:4 (NONREACTIVE) H 02/28/17 06:00 T.pallidum Ab ([facility]) Non reactive (NONREACTIVE) 02/28/17 06:00 HIV 1&2 Antibody Screen Negative 02/27/17 14:30 HIV P24 Antigen Negative 02/27/17 14:30 lab noted Assessment: 03/02/17 10:33 withdrawal sx Plan: continue detox
[2017-03-02] MEDS: PRENATAL VITAMINS W/ FOLIC ACID TABLET (FP) PO SCH (10:54)
[2017-03-02] MEDS: cloNIDine HCL 0.1 MG TABLET PO SCH (10:54)
[2017-03-02] MEDS: NICOTINE 21 MG/24 HOURS TOPICAL PATCH TD SCH (10:55)
[2017-03-02 13:26] LABS: URINE LEUK ESTERASE NEGATIVE (NEGATIVE)
[2017-03-02] MEDS: hydrOXYzine PAMOATE 50 MG CAPSULE (FP) PO PRN (22:55)
[2017-03-02] MEDS: THIAMINE HCL 100 MG TABLET (FP) PO SCH (22:55)
[2017-03-02] MEDS: QUEtiapine FUMARATE 50 MG TABLET PO SCH (22:55)
[2017-03-03] MEDS: GABAPENTIN 100 MG CAPSULE (FP) PO SCH ×3 (06:03→22:41)
--- NOTE | 2017-03-03 08:45 | DS ---
[facility] Detox Discharge Summary Admission Date: 02/27/17 Discharge Date: 03/03/17 - History Present History: Cannabis Dependence, Opioid Dependence - Physical Exam Results Vital Signs: Vital Signs Temperature 97.9 F 03/03/17 06:27 Pulse Rate 60 03/03/17 06:27 Respiratory Rate 16 03/03/17 06:27 Blood Pressure 104/50 03/03/17 06:27 O2 Sat by Pulse Oximetry (%) - Treatment Hospital Course: Detox Protocol Followed, Detoxed Safely, Responded well, Discharged Condition Good, Rehab Referral Accepted - Medication Discharge Medications: Ambulatory Orders Gabapentin [Neurontin -] 300 mg PO Q8H 10/29/15 Albuterol Sulfate Inhaler - [Ventolin HFA Inhaler -] 2 puff IH Q4H PRN #1 inhaler 11/03/15 Quetiapine Fumarate [Seroquel -] 300 mg PO HS #30 tab 11/21/16 - Diagnosis (1) Asthma Current Visit: Yes Status: Chronic Qualifiers: Asthma severity: mild Asthma complication type: uncomplicated (2) Cannabis dependence Current Visit: Yes Status: Chronic (3) Nicotine dependence Current Visit: Yes Status: Chronic Qualifiers: Nicotine product type: cigarettes Substance use status: uncomplicated Qualified Code(s): F17.210 - Nicotine dependence, cigarettes, uncomplicated (4) OCD (obsessive compulsive disorder) Current Visit: Yes Status: Chronic (5) Opioid dependence with withdrawal Current Visit: Yes Status: Chronic (6) PTSD (post-traumatic stress disorder) Current Visit: Yes Status: Chronic - AMA Did Patient Leave Against Medical Advice: No
[2017-03-03] MEDS ORDERED: METHADONE HCL 10 MG TABLET (FOR DETOX USE ONLY) PO ONE (10:00)
[2017-03-03] MEDS: PRENATAL VITAMINS W/ FOLIC ACID TABLET (FP) PO SCH (10:55)
[2017-03-03] MEDS: cloNIDine HCL 0.1 MG TABLET PO SCH (10:55)
[2017-03-03] MEDS: NICOTINE 21 MG/24 HOURS TOPICAL PATCH TD SCH (10:55)
--- NOTE | 2017-03-03 12:56 | PN ---
BHS Progress Note (SOAP) Subjective: feeling so much better little sweats Objective: 03/03/17 12:55 Vital Signs Temperature 97.6 F 03/03/17 10:00 Pulse Rate 69 03/03/17 10:00 Respiratory Rate 18 03/03/17 10:00 Blood Pressure 119/69 03/03/17 10:00 O2 Sat by Pulse Oximetry (%) [id number] ambulating no acute distress Assessment: 03/03/17 12:55 withdrawal sx Plan: continue detox d/c in am
[2017-03-03] MEDS: QUEtiapine FUMARATE 50 MG TABLET PO SCH (22:41)
[2017-03-03] MEDS: THIAMINE HCL 100 MG TABLET (FP) PO SCH (22:42)
[2017-03-04] MEDS: GABAPENTIN 100 MG CAPSULE (FP) PO SCH (05:51)
[2017-03-04] MEDS ORDERED: METHADONE HCL 5 MG TABLET (FOR DETOX USE ONLY) PO ONE (06:00)
[2017-03-04 07:00] VITALS: BP 119/51; PULSE 52; TEMP 98.1
== END 2017-03-04 07:24 | disposition home or self-care (01) | DRG 776 ==
LOC: YASAS 11:34 → Y6N 15:09
PROVIDERS: ADMIT Internal Medicine; ATTEND Internal Medicine
PROC: HZ2ZZZZ Detoxification Services for Substance Abuse Treatment (ICD-10-PCS; principal; 2017-02-27)
DX: F12.20 Cannabis dependence, uncomplicated (principal); F17.210 Nicotine dependence, cigarettes, uncomplicated; F43.10 Post-traumatic stress disorder, unspecified; F42.9 Obsessive-compulsive disorder, unspecified; J45.990 Exercise induced bronchospasm
CPT/HCPCS: 36415; 80053; 81003; 81015; 85025; 85027; 86593; 86780; 87389; 93005; 93010; 94640

== ENCOUNTER 2017-03-27 18:08 | Inpatient (IN) | payer OTHER ==
[2017-03-27 18:57] VITALS: BMI 29.7
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
[2017-03-27] MEDS ORDERED: MAG HYDROX/AL HYDROX/SIMETH 30 ML UNIT-DOSE CUP PO PRN (19:04)
[2017-03-27] MEDS ORDERED: IBUPROFEN 400 MG TABLET (FP) PO PRN (19:04)
[2017-03-27] MEDS ORDERED: MENTHOL/PHENOL 1 EACH UD MM PRN (19:04)
[2017-03-27] MEDS ORDERED: ACETAMINOPHEN 325 MG TABLET (FP) PO PRN (19:04)
[2017-03-27] MEDS ORDERED: MAGNESIUM CITRATE 300 ML BOTTLE PO PRN (19:04)
[2017-03-27] MEDS ORDERED: P-EPHED 60MG/TRIPROLIDI 2.5MG TABLET PO PRN (19:04)
[2017-03-27] MEDS ORDERED: METHADONE HCL 10 MG TABLET (FOR DETOX USE ONLY) PO ONE ×2 (19:04→23:00)
[2017-03-27] MEDS ORDERED: guaiFENesin/D-METHORPHAN HB 10 ML UNIT-DOSE CUPS PO PRN (19:04)
[2017-03-27] MEDS ORDERED: LOPERAMIDE HCL 2 MG CAPSULE PO PRN (19:04)
[2017-03-27] MEDS ORDERED: NICOTINE POLACRILEX 4 MG GUM BUC PRN (19:04)
[2017-03-27] MEDS ORDERED: ALBUTEROL SO4 18 GM HFA INHALER IH PRN (19:08)
[2017-03-27] MEDS ORDERED: ALBUTEROL SO4 0.083% IH SOL 2.5 MG/3 ML VIAL.NEB. NEB PRN (19:09)
[2017-03-27] MEDS: diazePAM 5 MG TABLET PO PRN (20:24)
[2017-03-27] MEDS: THIAMINE HCL 100 MG TABLET (FP) PO SCH (22:07)
[2017-03-27] MEDS: GABAPENTIN 300 MG CAPSULE (FP) PO SCH (22:08)
[2017-03-28] MEDS: diazePAM 5 MG TABLET PO PRN ×4 (03:17→22:10)
[2017-03-28] MEDS: GABAPENTIN 300 MG CAPSULE (FP) PO SCH ×3 (05:12→22:10)
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
--- NOTE | 2017-03-28 09:21 | PN ---
BHS COWS - Scale Resting Pulse: 0= [place] 80 or Below Sweatin= Chills/Flushing Restless Observation: 3= Extraneous Movement Pupil Size: 1= Pupils >than Normal Bone or Joint Aches: 2= Severe Diffuse Aches Runny Nose/ Eye Tearin= Runny Nose/Eyes GI Upset > 30mins: 2= Nausea/Diarrhea Tremor Observation of Outstretched Hands: 2= Slight Tremor Visible Yawning Observation: 1= 1-2x During Session Anxiety or Irritability: 2=Irritable/Anxious Goose Flesh Skin: 0=Smooth Skin COWS Score: 16 BHS Progress Note (SOAP) Subjective: ALERT,IRRITABLE,ANXIOUS,INTERRUPTED SLEEP,TREMOR,PAIN IN THE BODY AND BACK Objective: 03/28/17 09:19 Vital Signs Temperature 98.2 F 03/28/17 05:59 Pulse Rate 54 L 03/28/17 05:59 Respiratory Rate 18 03/28/17 05:59 Blood Pressure 121/58 03/28/17 05:59 O2 Sat by Pulse Oximetry (%) EKG SINUS BRADYCARDIA 55/MIN NO CHEST PAIN,NO SOB,NO DIZZINESS 03/28/17 09:20 LABS PENDING Assessment: 03/28/17 09:20 WITHDRAWAL SYMPTOM Plan: CONTINUE DETOX
[2017-03-28] MEDS ORDERED: METHADONE HCL 10 MG TABLET (FOR DETOX USE ONLY) PO ONE (10:00)
[2017-03-28 10:06] LABS: HEMATOCRIT 40.6 % (32.4-45.2); HEMOGLOBIN 12.6 GM/dL (10.7-15.3); MCHC 31.1 g/dl (32.0-36.0); MEAN CELL VOLUME 80.4 fl (80-96); MEAN PLT VOLUME 8.7 fl (7.5-11.1); PLATELET COUNT 244 K/MM3 (134-434); RBC 5.06 M/mm3 (3.60-5.2); RDW 15.6 % (11.6-15.6); WHITE BLOOD COUNT 8.7 K/mm3 (4.0-10.0)
[2017-03-28] MEDS: cloNIDine HCL 0.1 MG TABLET PO SCH ×2 (10:09→22:10)
[2017-03-28] MEDS: PRENATAL VITAMINS W/ FOLIC ACID TABLET (FP) PO SCH (10:09)
[2017-03-28] MEDS: NICOTINE 21 MG/24 HOURS TOPICAL PATCH TD SCH (10:12)
--- NOTE | 2017-03-28 10:32 | EKG ---
Test Reason : Blood Pressure : / mmHG Vent. Rate : 062 BPM Atrial Rate : 062 BPM P-R Int : 132 ms QRS Dur : 082 ms QT Int : 424 ms P-R-T Axes : 071 078 063 degrees QTc Int : 430 ms NORMAL SINUS RHYTHM WITH SINUS ARRHYTHMIA NORMAL ECG WHEN COMPARED WITH ECG OF 27-FEB-2017 15:57, NO SIGNIFICANT CHANGE WAS FOUND Confirmed by DELVIN CADE MD ([id number]) on 03/28/2017 10:31:58 AM Referred By: Confirmed By:DELVIN CADE MD
[2017-03-28 10:38] LABS: CHLORIDE 107 mmol/L (98-107); POTASSIUM 3.9 mmol/L (3.5-5.1); SODIUM 141 mmol/L (136-145)
[2017-03-28 10:44] LABS: ALBUMIN 3.5 g/dl (3.4-5.0); ALK PHOS 58 U/L (45-117); ANION GAP 7 (8-16); BILIRUBIN,TOTAL 0.7 mg/dL (0.2-1.0); BLOOD UREA NITROGEN 8 mg/dL (7-18); CALCIUM 8.9 mg/dL (8.5-10.1); CO2 27 mmol/L (21-32); CREATININE 0.7 mg/dL (0.55-1.02); GLUCOSE,RANDOM 87 mg/dL (74-106); SGOT/AST 13 U/L (15-37); SGPT/ALT 24 U/L (12-78); TOT PROT 6.2 g/dl (6.4-8.2)
[2017-03-28 13:54] LABS: RPR REACTIVE 1:4 (NONREACTIVE)
[2017-03-28 14:47] LABS: URINE APPEARANCE SLCLOUDY; URINE BILIRUBIN NEGATIVE (NEGATIVE); URINE BLOOD NEGATIVE (NEGATIVE); URINE COLOR YELLOW; URINE GLUCOSE (UA) NEGATIVE (NEGATIVE); URINE KETONE NEGATIVE (NEGATIVE); URINE NITRITE NEGATIVE (NEGATIVE); URINE PROTEIN NEGATIVE (NEGATIVE); URINE UROBILINOGEN NEGATIVE mg/dL (0.2-1.0)
[2017-03-28 14:56] LABS: URINE LEUK ESTERASE 1+ (NEGATIVE)
[2017-03-28 14:58] LABS: EPI CELLS RARE /HPF (FEW); URINE BACTERIA RARE /hpf (NONE SEEN); URINE MUCUS RARE
--- NOTE | 2017-03-28 15:19 | EKG ---
Test Reason : Blood Pressure : / mmHG Vent. Rate : 055 BPM Atrial Rate : 055 BPM P-R Int : 130 ms QRS Dur : 084 ms QT Int : 458 ms P-R-T Axes : 072 076 064 degrees QTc Int : 438 ms SINUS BRADYCARDIA WHEN COMPARED WITH ECG OF 27-MAR-2017 19:58, NO SIGNIFICANT CHANGE WAS FOUND Confirmed by DELVIN CADE MD ([id number]) on 03/28/2017 3:19:00 PM Referred By: Confirmed By:DELVIN CADE MD
--- NOTE | 2017-03-28 15:34 | PN ---
S Progress Note Note: pt has had a 1:4 titer many years. pt has been treated in the past. pt is asymptomatic. no further tx required.
[2017-03-28 16:21] LABS: TREPONEMA ANTIBODY NON REACTIVE (NONREACTIVE)
[2017-03-28] MEDS: MAGNESIUM HYDROX 2400MG/30ML ORAL SUSPENSION 30 ML CUP PO PRN (22:09)
[2017-03-28] MEDS: METHOCARBAMOL 500 MG TABLET PO PRN (22:10)
[2017-03-28] MEDS: QUEtiapine FUMARATE 100 MG TABLET (FP) PO SCH (22:10)
[2017-03-28] MEDS: THIAMINE HCL 100 MG TABLET (FP) PO SCH (22:11)
[2017-03-29] MEDS: GABAPENTIN 300 MG CAPSULE (FP) PO SCH ×3 (05:11→22:14)
[2017-03-29] MEDS: METHOCARBAMOL 500 MG TABLET PO PRN ×2 (05:13→13:38)
[2017-03-29] MEDS ORDERED: ALBUTEROL SO4 2.5/IPRATROPIUM 0.5 INH SOL 3 ML VIAL.NEB. NEB PRN (09:06)
--- NOTE | 2017-03-29 09:51 | PN ---
[facility] COWS - Scale Resting Pulse: 0= NC 80 or Below Sweatin= Chills/Flushing Restless Observation: 3= Extraneous Movement Pupil Size: 1= Pupils >than Normal Bone or Joint Aches: 2= Severe Diffuse Aches Runny Nose/ Eye Tearin= Runny Nose/Eyes GI Upset > 30mins: 2= Nausea/Diarrhea Tremor Observation of Outstretched Hands: 2= Slight Tremor Visible Yawning Observation: 1= 1-2x During Session Anxiety or Irritability: 2=Irritable/Anxious Goose Flesh Skin: 0=Smooth Skin COWS Score: 16 S Progress Note (SOAP) Subjective: ALERT,IRRITABLE,ANXIOUS,INTERRUPTED SLEEP,TREMOR,COUGHING,MILD WHEEZING Objective: 03/29/17 09:48 Vital Signs Temperature 97.9 F 03/29/17 06:04 Pulse Rate 50 L 03/29/17 06:04 Respiratory Rate 16 03/29/17 06:04 Blood Pressure 105/56 03/29/17 06:04 O2 Sat by Pulse Oximetry (%) Laboratory Last Values WBC 8.7 K/mm3 (4.0-10.0) 03/28/17 06:30 RBC 5.06 M/mm3 (3.60-5.2) 03/28/17 06:30 Hgb 12.6 GM/dL (10.7-15.3) 03/28/17 06:30 Hct 40.6 % (32.4-45.2) 03/28/17 06:30 MCV 80.4 fl (80-96) 03/28/17 06:30 MCH 25.0 pg (25.7-33.7) L 03/28/17 06:30 MCHC 31.1 g/dl (32.0-36.0) L 03/28/17 06:30 RDW 15.6 % (11.6-15.6) 03/28/17 06:30 Plt Count 244 K/MM3 (134-434) 03/28/17 06:30 MPV 8.7 fl (7.5-11.1) 03/28/17 06:30 Sodium 141 mmol/L (136-145) 03/28/17 06:30 Potassium 3.9 mmol/L (3.5-5.1) 01/05/18 06:30 Chloride 107 mmol/L (98-107) 03/28/17 06:30 Carbon Dioxide 27 mmol/L (21-32) 03/28/17 06:30 Anion Gap 7 (8-16) L 03/28/17 06:30 BUN 8 mg/dL (7-18) 03/28/17 06:30 Creatinine 0.7 mg/dL (0.55-1.02) D 03/28/17 06:30 Creat Clearance w eGFR > 60 (>60) 03/28/17 06:30 Random Glucose 87 mg/dL (74-106) D 03/28/17 06:30 Calcium 8.9 mg/dL (8.5-10.1) 03/28/17 06:30 Total Bilirubin 0.7 mg/dL (0.2-1.0) D 03/28/17 06:30 AST 13 U/L (15-37) L 03/28/17 06:30 ALT 24 U/L (12-78) 03/28/17 06:30 Alkaline Phosphatase 58 U/L (45-117) D 03/28/17 06:30 Total Protein 6.2 g/dl (6.4-8.2) L 03/28/17 06:30 Albumin 3.5 g/dl (3.4-5.0) 03/28/17 06:30 Urine Color Yellow 03/28/17 10:20 Urine Appearance Slcloudy 03/28/17 10:20 Urine pH 6.0 (5.0-8.0) 03/28/17 10:20 Ur Specific [place] 1.014 (1.001-1.035) 03/28/17 10:20 Urine Protein Negative (NEGATIVE) 03/28/17 10:20 Urine Glucose (UA) Negative (NEGATIVE) 03/28/17 10:20 Urine Ketones Negative (NEGATIVE) 03/28/17 10:20 Urine Blood Negative (NEGATIVE) 03/28/17 10:20 Urine Nitrite Negative (NEGATIVE) 03/28/17 10:20 Urine Bilirubin Negative (NEGATIVE) 03/28/17 10:20 Urine Urobilinogen Negative mg/dL (0.2-1.0) 03/28/17 10:20 Ur Leukocyte Esterase 1+ (NEGATIVE) H 03/28/17 10:20 Urine WBC (Auto) 6 /hpf (3-5) 03/28/17 10:20 Urine RBC (Auto) 1 /hpf (0-3) 03/28/17 10:20 Ur Epithelial Cells Rare /HPF (FEW) 03/28/17 10:20 Urine Bacteria Rare /hpf (NONE SEEN) 03/28/17 10:20 Urine Mucus Rare 03/28/17 10:20 RPR Titer Reactive 1:4 (NONREACTIVE) H 03/28/17 06:30 T.pallidum Ab (MHA) Non reactive (NONREACTIVE) 03/28/17 06:30 HIV 1&2 Antibody Screen Negative 03/28/17 06:30 HIV P24 Antigen Negative 03/28/17 06:30 Assessment: 03/29/17 09:49 WITHDRAWAL SYMPTOM Plan: CONTINUE DETOX,DUONEB NEBULIZER PRN Q 6 HRS,CLOSE MONITORING
[2017-03-29] MEDS ORDERED: METHADONE HCL 5 MG TABLET (FOR DETOX USE ONLY) PO ONE (10:00)
[2017-03-29] MEDS: diazePAM 5 MG TABLET PO PRN ×3 (10:11→22:17)
[2017-03-29] MEDS: NICOTINE 21 MG/24 HOURS TOPICAL PATCH TD SCH (10:12)
[2017-03-29] MEDS: cloNIDine HCL 0.1 MG TABLET PO SCH ×2 (10:12→22:15)
[2017-03-29] MEDS: PRENATAL VITAMINS W/ FOLIC ACID TABLET (FP) PO SCH (10:12)
[2017-03-29] MEDS: MAGNESIUM HYDROX 2400MG/30ML ORAL SUSPENSION 30 ML CUP PO PRN (12:16)
[2017-03-29] MEDS: QUEtiapine FUMARATE 100 MG TABLET (FP) PO SCH (22:15)
[2017-03-29] MEDS: THIAMINE HCL 100 MG TABLET (FP) PO SCH (22:15)
[2017-03-30] MEDS: diazePAM 5 MG TABLET PO PRN ×2 (05:23→12:54)
[2017-03-30] MEDS: GABAPENTIN 300 MG CAPSULE (FP) PO SCH ×3 (05:24→22:11)
--- NOTE | 2017-03-30 09:51 | PN ---
[facility] Progress Note (SOAP) Subjective: constipation sweating restlessness anxiety Objective: 03/30/17 09:50 Vital Signs Temperature 98.2 F 03/30/17 06:23 Pulse Rate 56 L 03/30/17 06:23 Respiratory Rate 16 03/30/17 06:23 Blood Pressure 107/50 03/30/17 06:23 O2 Sat by Pulse Oximetry (%) Laboratory Last Values WBC 8.7 K/mm3 (4.0-10.0) 03/28/17 06:30 RBC 5.06 M/mm3 (3.60-5.2) 03/28/17 06:30 Hgb 12.6 GM/dL (10.7-15.3) 03/28/17 06:30 Hct 40.6 % (32.4-45.2) 03/28/17 06:30 MCV 80.4 fl (80-96) 03/28/17 06:30 MCH 25.0 pg (25.7-33.7) L 03/28/17 06:30 MCHC 31.1 g/dl (32.0-36.0) L 03/28/17 06:30 RDW 15.6 % (11.6-15.6) 03/28/17 06:30 Plt Count 244 K/MM3 (134-434) 03/28/17 06:30 MPV 8.7 fl (7.5-11.1) 03/28/17 06:30 Sodium 141 mmol/L (136-145) 03/28/17 06:30 Potassium 3.9 mmol/L (3.5-5.1) 03/28/17 06:30 Chloride 107 mmol/L (98-107) 03/28/17 06:30 Carbon Dioxide 27 mmol/L (21-32) 03/28/17 06:30 Anion Gap 7 (8-16) L 03/28/17 06:30 BUN 8 mg/dL (7-18) 03/28/17 06:30 Creatinine 0.7 mg/dL (0.55-1.02) D 03/28/17 06:30 Creat Clearance w eGFR > 60 (>60) 03/28/17 06:30 Random Glucose 87 mg/dL (74-106) D 03/28/17 06:30 Calcium 8.9 mg/dL (8.5-10.1) 03/28/17 06:30 Total Bilirubin 0.7 mg/dL (0.2-1.0) D 03/28/17 06:30 AST 13 U/L (15-37) L 03/28/17 06:30 ALT 24 U/L (12-78) 03/28/17 06:30 Alkaline Phosphatase 58 U/L (45-117) D 03/28/17 06:30 Total Protein 6.2 g/dl (6.4-8.2) L 03/28/17 06:30 Albumin 3.5 g/dl (3.4-5.0) 03/28/17 06:30 Urine Color Yellow 03/28/17 10:20 Urine Appearance Slcloudy 03/28/17 10:20 Urine pH 6.0 (5.0-8.0) 03/28/17 10:20 Ur Specific [place] 1.014 (1.001-1.035) 03/28/17 10:20 Urine Protein Negative (NEGATIVE) 03/28/17 10:20 Urine Glucose (UA) Negative (NEGATIVE) 03/28/17 10:20 Urine Ketones Negative (NEGATIVE) 03/28/17 10:20 Urine Blood Negative (NEGATIVE) 03/28/17 10:20 Urine Nitrite Negative (NEGATIVE) 03/28/17 10:20 Urine Bilirubin Negative (NEGATIVE) 03/28/17 10:20 Urine Urobilinogen Negative mg/dL (0.2-1.0) 03/28/17 10:20 Ur Leukocyte Esterase 1+ (NEGATIVE) H 03/28/17 10:20 Urine WBC (Auto) 6 /hpf (3-5) 03/28/17 10:20 Urine RBC (Auto) 1 /hpf (0-3) 03/28/17 10:20 Ur Epithelial Cells Rare /HPF (FEW) 03/28/17 10:20 Urine Bacteria Rare /hpf (NONE SEEN) 03/28/17 10:20 Urine Mucus Rare 03/28/17 10:20 RPR Titer Reactive 1:4 (NONREACTIVE) H 03/28/17 06:30 T.pallidum Ab (MHA) Non reactive (NONREACTIVE) 03/28/17 06:30 HIV 1&2 Antibody Screen Negative 03/28/17 06:30 HIV P24 Antigen Negative 03/28/17 06:30 lab noted Assessment: 03/30/17 09:50 withdrawal sx Plan: continue detox colace 100 mg tid + senna 2 tabs hs
[2017-03-30] MEDS ORDERED: METHADONE HCL 5 MG TABLET (FOR DETOX USE ONLY) PO ONE (10:00)
[2017-03-30] MEDS: PRENATAL VITAMINS W/ FOLIC ACID TABLET (FP) PO SCH (10:12)
[2017-03-30] MEDS: cloNIDine HCL 0.1 MG TABLET PO SCH ×2 (10:12→22:11)
[2017-03-30] MEDS: METHOCARBAMOL 500 MG TABLET PO PRN (10:12)
[2017-03-30] MEDS: NICOTINE 21 MG/24 HOURS TOPICAL PATCH TD SCH (10:12)
[2017-03-30] MEDS: DOCUSATE SODIUM 100 MG CAPSULE (FP) PO SCH ×2 (14:15→22:11)
[2017-03-30] MEDS: SENNOSIDES 8.6MG TABLET (FP) PO SCH (22:11)
[2017-03-30] MEDS: THIAMINE HCL 100 MG TABLET (FP) PO SCH (22:11)
[2017-03-30] MEDS: QUEtiapine FUMARATE 100 MG TABLET (FP) PO SCH (22:12)
[2017-03-30] MEDS: MINERAL OIL/PETROLAT/WATER TOPICAL CREAM 113 GM JAR TP SCH (22:55)
[2017-03-31] MEDS: GABAPENTIN 300 MG CAPSULE (FP) PO SCH ×3 (05:13→22:25)
[2017-03-31] MEDS: DOCUSATE SODIUM 100 MG CAPSULE (FP) PO SCH ×3 (05:13→22:25)
--- NOTE | 2017-03-31 09:32 | PN ---
S Progress Note (SOAP) Subjective: ALERT,IRRITABLE,ANXIOUS,INTERRUPTED SLEEP,PAIN IN THE BODY Objective: 03/31/17 09:31 Vital Signs Temperature 98.1 F 03/31/17 06:01 Pulse Rate 60 03/31/17 06:01 Respiratory Rate 16 03/31/17 06:01 Blood Pressure 112/52 03/31/17 06:01 O2 Sat by Pulse Oximetry (%) Assessment: 03/31/17 09:31 WITHDRAWAL SYMPTOM Plan: CONTINUE DETOX,PSYCHIATRIC REEVALUATION FOR INSOMNIA
[2017-03-31] MEDS ORDERED: METHADONE HCL 10 MG TABLET (FOR DETOX USE ONLY) PO ONE (10:00)
[2017-03-31] MEDS: NICOTINE 21 MG/24 HOURS TOPICAL PATCH TD SCH (10:19)
[2017-03-31] MEDS: PRENATAL VITAMINS W/ FOLIC ACID TABLET (FP) PO SCH (10:19)
[2017-03-31] MEDS: cloNIDine HCL 0.1 MG TABLET PO SCH ×2 (10:19→22:24)
[2017-03-31] MEDS: hydrOXYzine PAMOATE 50 MG CAPSULE (FP) PO PRN ×2 (14:10→19:00)
[2017-03-31] MEDS: THIAMINE HCL 100 MG TABLET (FP) PO SCH (22:24)
[2017-03-31] MEDS: METHOCARBAMOL 500 MG TABLET PO PRN (22:25)
[2017-03-31] MEDS: SENNOSIDES 8.6MG TABLET (FP) PO SCH (22:25)
[2017-03-31] MEDS: QUEtiapine FUMARATE 100 MG TABLET (FP) PO SCH (22:25)
[2017-03-31] MEDS: MINERAL OIL/PETROLAT/WATER TOPICAL CREAM 113 GM JAR TP SCH (22:25)
[2017-04-01] MEDS: DOCUSATE SODIUM 100 MG CAPSULE (FP) PO SCH (05:51)
[2017-04-01] MEDS: GABAPENTIN 300 MG CAPSULE (FP) PO SCH (05:51)
[2017-04-01] MEDS ORDERED: METHADONE HCL 5 MG TABLET (FOR DETOX USE ONLY) PO ONE (06:00)
[2017-04-01 06:14] VITALS: BP 100/55; PULSE 60; TEMP 97.2
[2017-04-01] MEDS: hydrOXYzine PAMOATE 50 MG CAPSULE (FP) PO PRN (07:05)
--- NOTE | 2017-04-01 08:09 | DS ---
[facility] Detox Discharge Summary Admission Date: 03/27/17 Discharge Date: 04/01/17 - History Present History: Opioid Dependence Additional Comments: FOLLOW UP WITH AFTER CARE PROGRAM ARRANGEMENT Pertinent Past History: ASTHMA NICOTINE DEPENDENCE BIPOLAR 2 DISORDER - Physical Exam Results Vital Signs: Vital Signs Temperature 97.2 F L 04/01/17 06:00 Pulse Rate 60 04/01/17 06:00 Respiratory Rate 18 04/01/17 06:00 Blood Pressure 100/55 04/01/17 06:00 O2 Sat by Pulse Oximetry (%) - Treatment Hospital Course: Detox Protocol Followed, Detoxed Safely, Responded well, Discharged Condition Good, Rehab Referral Accepted Patient has Accepted a Rehab Referral to: [facility] - Medication Discharge Medications: Ambulatory Orders Albuterol Sulfate Inhaler - [Ventolin HFA Inhaler -] 2 puff IH Q4H PRN #1 inhaler 11/03/15 Quetiapine Fumarate [Seroquel -] 300 mg PO HS #30 tab 11/21/16 Gabapentin [Neurontin -] 300 mg PO Q8H 03/27/17 - Diagnosis (1) Opioid dependence with withdrawal Current Visit: Yes Status: Acute (2) Nicotine dependence Current Visit: Yes Status: Acute Qualifiers: Nicotine product type: cigarettes Substance use status: in withdrawal Qualified Code(s): F17.213 - Nicotine dependence, cigarettes, with withdrawal (3) Asthma Current Visit: Yes Status: Chronic Qualifiers: Asthma severity: mild Asthma persistence: intermittent Asthma complication type: with status asthmaticus Qualified Code(s): J45.22 - Mild intermittent asthma with status asthmaticus (4) Bipolar II disorder Current Visit: Yes Status: Suspected (5) OCD (obsessive compulsive disorder) Current Visit: No Status: Chronic (6) PTSD (post-traumatic stress disorder) Current Visit: No Status: Chronic - AMA Did Patient Leave Against Medical Advice: No
--- NOTE | 2017-04-01 09:40 | PN ---
Psychiatric Progress Note Vital Signs: Vital Signs Period Temp Pulse Resp BP Sys/Liao Pulse Ox Last 24 Hr 97.2 F-98.2 F 60-90 16-20 100-128/55-80 Date of Session: 04/01/17 Chief Complaint:: "I want a refill of the blue bill." ROS: Unremarkable. Current Medications: Active Medications Generic Name Dose Route Start Last Admin Trade Name Freq PRN Reason Stop Dose Admin Acetaminophen 650 mg 03/27/17 19:04 Tylenol - PO Q4H PRN FEVER OR PAIN Al Hydroxide/Mg Hydroxide 30 ml 03/27/17 19:04 Mylanta Oral Suspension - PO Q6H PRN DYSPEPSIA Albuterol Sulfate 2 puff 03/27/17 19:08 Ventolin Hfa Inhaler - IH Q4H PRN SHORT OF BREATH/WHEEZING Albuterol/Ipratropium 1 amp 03/29/17 09:06 03/31/17 18:33 Duoneb - NEB 1 amp Q6H PRN Administration SHORTNESS OF BREATH Clonidine 0.1 mg 03/28/17 10:00 03/31/17 22:24 Catapres - PO 0.1 mg BID CATE Administration Docusate Sodium 100 mg 03/30/17 14:00 04/01/17 05:51 Colace - PO 100 mg TID CATE Administration Eucalyptus/Menthol/Phenol/Sorbitol 1 each 03/27/17 19:04 Cepastat Lozenge - MM Q4H PRN SORE THROAT Gabapentin 300 mg 03/27/17 22:00 04/01/17 05:51 Neurontin - PO 300 mg TID CATE Administration Guaifenesin 10 ml 03/27/17 19:04 03/29/17 09:01 Robitussin Dm - PO 10 ml Q6H PRN Administration COUGH Hydroxyzine Pamoate 50 mg 03/31/17 11:25 04/01/17 07:05 Vistaril - PO 50 mg Q4H PRN Administration FOR ITCHING Ibuprofen 400 mg 03/27/17 19:04 Motrin - PO Q6H PRN SEVERE PAIN Loperamide HCl 4 mg 03/27/17 19:04 Imodium - PO Q6H PRN DIARRHEA Magnesium Citrate 300 ml 03/27/17 19:04 Citroma - PO Q48H PRN CONSTIPATION Magnesium Hydroxide 30 ml 03/27/17 19:04 03/29/17 12:16 Milk Of Magnesia - PO 30 ml DAILY PRN Administration CONSTIPATION Methocarbamol 500 mg 03/27/17 19:08 03/31/17 22:25 Robaxin - PO 500 mg Q8H PRN Administration BACK PAIN Multi-Ingredient Lotion 1 applic 03/30/17 22:00 03/31/17 22:25 Eucerin (Small Jar) - TP 1 applic HS CATE Administration Nicotine 21 mg 03/28/17 10:00 03/31/17 10:19 Nicoderm Patch - TD Not Given DAILY CATE Nicotine Polacrilex 4 mg 03/27/17 19:04 03/30/17 05:23 Nicorette Gum - BUC 4 mg Q2H PRN Administration NICOTINE REPLACEMENT RX Multivit/Folic Acid/Iron 1 tab 03/28/17 10:00 03/31/17 10:19 Vitamins (Sjr) - PO 1 tab DAILY CATE Administration Pseudoephedrine/Triprolidine 1 combo 03/27/17 19:04 03/29/17 09:02 Actifed - PO 1 combo TID PRN Administration NASAL CONGESTION Quetiapine Fumarate 100 mg 03/28/17 22:00 03/31/17 22:25 Seroquel - PO 100 mg HS CATE Administration Senna 2 tab 03/30/17 22:00 03/31/17 22:25 Senna - PO 2 tab HS CATE Administration Thiamine HCl 100 mg 03/27/17 22:00 03/31/17 22:24 Vitamin B1 - PO 100 mg HS CATE Administration Medication(s) Change(s): No Current Side Effect: No Lab tests ordered: No Lab tests reviewed: Yes Provider note:: Pharmaceutical Development Technician approached patient concerning psychiatric consultation. Pt. requesting a prescription of the "blue pill" that has decreased her anxiety. Psychoeducation provided and patient educated on the medication hydroxyzine. Pt. recepting to feedback. Will sent a script of 30 day supply for hydroxyzine to [facility]. Total face to face time:: 25 Mental Status Exam - Mental Status Exam Alert and Oriented to: Time, Place, Person Cognitive Function: Good Patient Appearance: Well Groomed Mood: Happy Affect: Mood Congruent Patient Behavior: Cooperative Speech Pattern: Appropriate Voice Loudness: Normal Thought Process: Goal Oriented Thought Disorder: Not Present Hallucinations: Denies Suicidal Ideation: Denies Homicidal Ideation: Denies Insight/Judgement: Poor Sleep: Fair Appetite: Fair Muscle strength/Tone: Normal Gait/Station: Normal Psychiatric Treatment Plan - Problem List (1) Opioid dependence with withdrawal Current Visit: Yes (2) Cannabis dependence Current Visit: Yes (3) Nicotine dependence Current Visit: Yes Qualifiers: Nicotine product type: cigarettes Substance use status: in withdrawal Qualified Code(s): F17.213 - Nicotine dependence, cigarettes, with withdrawal (4) Anxiety disorder Current Visit: Yes Qualifiers: Anxiety disorder type: generalized anxiety disorder Qualified Code(s): F41.1 - Generalized anxiety disorder Comment: Pt. self reports being diagnosed with anxiety disorder three years ago. (5) Bipolar disorder Current Visit: Yes Qualifiers: Current episode severity: unspecified Comment: Pt. self reports being diagnosed with bipolar disorder three years ago.
[2017-04-01] MEDS: PRENATAL VITAMINS W/ FOLIC ACID TABLET (FP) PO SCH (10:13)
[2017-04-01] MEDS: cloNIDine HCL 0.1 MG TABLET PO SCH (10:13)
[2017-04-01] MEDS: NICOTINE 21 MG/24 HOURS TOPICAL PATCH TD SCH (10:13)
== END 2017-04-01 11:40 | disposition home or self-care (01) | DRG 773 ==
LOC: YASAS 18:08 → Y6N 19:19
PROVIDERS: ADMIT Internal Medicine; ATTEND Internal Medicine
PROC: HZ2ZZZZ Detoxification Services for Substance Abuse Treatment (ICD-10-PCS; principal; 2017-03-27)
DX: F11.23 Opioid dependence with withdrawal (principal); F12.20 Cannabis dependence, uncomplicated; F17.213 Nicotine dependence, cigarettes, with withdrawal; F41.1 Generalized anxiety disorder; F31.81 Bipolar II disorder; F42.9 Obsessive-compulsive disorder, unspecified; F43.10 Post-traumatic stress disorder, unspecified; J45.22 Mild intermittent asthma with status asthmaticus; R00.1 Bradycardia, unspecified; Z91.5 Personal history of self-harm
CPT/HCPCS: 36415; 80053; 81003; 81015; 85027; 86593; 86780; 87389; 93005; 93010; 94640

== ENCOUNTER 2017-07-20 19:50 | Inpatient (IN) | payer OTHER ==
--- NOTE | 2017-07-20 20:42 | HP ---
COWS - Scale Resting Pulse: 0= SD 80 or Below Sweatin= Beads of Sweat on Face Restless Observation: 1= Difficult to Sit Still Pupil Size: 1= Pupils >than Normal Bone or Joint Aches: 4=Acute Joint/Muscle Pain Runny Nose/ Eye Tearin= Nasal Congestion GI Upset > 30mins: 1= Stomach Cramp Tremor Observation: 4= Gross Tremor/Twitching Yawning Observation: 0= None Anxiety or Irritability: 4=Extreme Anxiety Goose Flesh Skin: 0=Smooth Skin COWS Score: 19 CIWA Score - CIWA Score Nausea/Vomitin-Mild Nausea/No Vomiting Muscle Tremors: 4-Moderate,w/Arms Extend Anxiety: 4-Mod. Anxious/Guarded Agitation: 1-Slight > Activity Paroxysmal Sweats: 3 Orientation: 0-Oriented Tacttile Disturbances: 2-Mild Itch/Numbness/Burn Auditory Disturbances: 0-None Visual Disturbances: 0-None Headache: 3-Moderate CIWA-Ar Total Score: 18 Admission ROS S - HPI Chief Complaint: Heroin and alcohol withdrawal symptoms Allergies/Adverse Reactions: Allergies Allergy/AdvReac Type Severity Reaction Status Date / Time No Known Allergies Allergy Verified 07/20/17 20:20 History of Present Illness: 37 years old female with a year old history of heroin and alcohol dependence is seeking admission to detox. Patient has been in previous detox and reports insignificant period of sobriety. She has medical history of asthma, anemia, anxiety and depression. She reports suicide attempt in 2000, 2004 and denies suicidal ideation at this time. Exam Limitations: No Limitations - Ebola screening Have you traveled outside of the country in the last 21 days: No Have you had contact with anyone from an Ebola affected area: No Have you been sick,other than usual withdrawal symptoms: No Do you have a fever: No - Review of Systems Constitutional: Chills, Loss of Appetite, Malaise, Night Sweats, Changes in sleep EENT: reports: Nose Congestion, Other (use prescription eye glasses) Respiratory: reports: Wheezing Cardiac: reports: No Symptoms Reported GI: reports: Constipated, Nausea, Poor Appetite, Poor Fluid Intake, Abdominal cramping : reports: No Symptoms Reported Musculoskeletal: reports: Back Pain, Joint Pain (neck), Muscle Pain Integumentary: reports: Dryness, Flushing Neuro: reports: Tingling, Tremors Endocrine: reports: No Symptoms Reported Hematology: reports: Anemia Psychiatric: reports: Orientated x3, Anxious, Depressed Other Systems: Reviewed and Negative Patient History - Patient Medical History Hx Anemia: Yes (Ferrous sulfate) Hx Asthma: Yes (Albuterol) Hx Chronic Obstructive Pulmonary Disease (COPD): No Hx Cancer: No Hx Cardiac Disorders: No Hx Congestive Heart Failure: No Hx Hypertension: No Hx Hypercholesterolemia: No Hx Pacemaker: No HX Cerebrovascular Accident: No Hx Seizures: No Hx Dementia: No Hx Diabetes: No Hx Gastrointestinal Disorders: No Hx Liver Disease: No Hx Genitourinary Disorders: No Hx Sexually Transmitted Disorders: No Hx Renal Disease (ESRD): No Hx Thyroid Disease: No Hx Human Immunodeficiency Virus (HIV): No (Negative 2016) Hx Hepatitis C: No Hx Depression: Yes (Seroquel) Hx Suicide Attempt: No (Suicide attempt in 2000, 2004 and denies suicidal ideation at this time) Hx Bipolar Disorder: Yes (Seroquel) Hx Schizophrenia: No Other Medical History: ANXIETY DISORDER - Not on medication - Patient Surgical History Past Surgical History: Yes Hx Neurologic Surgery: No Hx Cataract Extraction: No Hx Cardiac Surgery: No Hx Lung Surgery: No Hx Breast Surgery: No Hx Breast Biopsy: No Hx Abdominal Surgery: No Hx Appendectomy: No Hx Cholecystectomy: No Hx Genitourinary Surgery: No Hx Section: No Hx Orthopedic Surgery: Yes (LEFT HAMMER TOE 2001) Hx Hysterectomy: No Other Surgical History: WISDOM TEETH REMOVAL IN 2011 Anesthesia Reaction: No - PPD History Previous Implant?: Yes Documented Results: Negative w/proof Implanted On Prior [facility] Admission?: Yes Date: 11/22/16 Results: 0 mm PPD to be Administered?: No - Reproductive History Patient is a Female of Child Bearing Age (11 -55 yrs old): Yes Last Menstrual Period: 07/02/17 Patient : No - Smoking Cessation Smoking history: Current every day smoker Have you smoked in the past 12 months: Yes Aproximately how many cigarettes per day: 20 Hx Chewing Tobacco Use: No Initiated information on smoking cessation: Yes 'Breaking Loose' booklet given: 07/20/17 - Substance & Tx. History Hx Alcohol Use: No Hx Substance Use: Yes Substance Use Type: Alcohol, Heroin, Marijuana Hx Substance Use Treatment: Yes ([facility]) - Substances Abused Alcohol Route: Oral Frequency: Daily Amount used: 1 PINT Age of first use: 18 Date of Last Use: 07/20/17 Heroin Route: SNIFF Frequency: Daily Amount used: 1 GRAM Age of first use: 36 Date of Last Use: 07/20/17 Marijuana/Hashish Route: Smoking Frequency: Daily Amount used: 1 BAG Age of first use: 15 Date of Last Use: 07/19/17 Family Disease History - Family Disease History Family Disease History: Other: Father (NO CONTACT), Mother (HEROIN,HIV/) , Brother (NO CONTACT), Sister (NO CONTACT) Admission Physical Exam [facility] - Physical General Appearance: Yes: Moderate Distress, Tremorous, Irritable, Sweating, Anxious HEENTM: Yes: EOMI, Normal ENT Inspection, Normal Voice, [place]EC[place] Respiratory: Yes: Lungs Clear, Normal Breath Sounds, No Respiratory Distress Neck: Yes: Supple Breast: Yes: Breast Exam Deferred Cardiology: Yes: Regular Rhythm, Regular Rate, S1, S2 Abdominal: Yes: Normal Bowel Sounds, Soft Genitourinary: Yes: Within Normal Limits Back: Yes: Normal Inspection Musculoskeletal: Yes: Back pain, Muscle Pain, Muscle weakness Extremities: Yes: Tremors Neurological: Yes: Fully Oriented, Normal Mood/Affect Integumentary: Yes: Warm Lymphatic: Yes: Within Normal Limits - Diagnostic (1) Alcohol dependence with uncomplicated withdrawal Current Visit: Yes Status: Chronic (2) Depression Current Visit: Yes Status: Chronic Qualifiers: Depression Type: unspecified Qualified Code(s): F32.9 - Major depressive disorder, single episode, unspecified (3) Anxiety Current Visit: Yes Status: Chronic (4) Anemia Current Visit: Yes Status: Chronic Qualifiers: Anemia type: unspecified type Qualified Code(s): D64.9 - Anemia, unspecified (5) Asthma Current Visit: Yes Status: Chronic Qualifiers: Asthma severity: mild Asthma persistence: intermittent Asthma complication type: unspecified Qualified Code(s): J45.20 - Mild intermittent asthma, uncomplicated (6) Cannabis dependence Current Visit: Yes Status: Chronic (7) Nicotine dependence Current Visit: Yes Status: Chronic Qualifiers: Nicotine product type: cigarettes Substance use status: uncomplicated Qualified Code(s): F17.210 - Nicotine dependence, cigarettes, uncomplicated (8) Opioid dependence with withdrawal Current Visit: Yes Status: Chronic Cleared for Admission [facility] - Detox or Rehab [facility] Level of Care: Medically Managed Detox Regimen/Protocol: Methadone/Librium [facility] Breath Alcohol Content Breath Alcohol Content: 0 Urine Drug Screen - Results Drug Screen Negative: No Urine Drug Screen Results: OPI-Opiates, BZO-Benzodiazepines, MTD-Methadone
[2017-07-20 20:55] VITALS: BMI 27.3
[2017-07-20] MEDS ORDERED: MAGNESIUM CITRATE 300 ML BOTTLE PO PRN (21:00)
[2017-07-20] MEDS ORDERED: ACETAMINOPHEN 325 MG TABLET (FP) PO PRN (21:00)
[2017-07-20] MEDS ORDERED: IBUPROFEN 400 MG TABLET (FP) PO PRN (21:00)
[2017-07-20] MEDS ORDERED: LOPERAMIDE HCL 2 MG CAPSULE PO PRN (21:00)
[2017-07-20] MEDS ORDERED: MAG HYDROX/AL HYDROX/SIMETH 30 ML UNIT-DOSE CUP PO PRN (21:00)
[2017-07-20] MEDS ORDERED: MAGNESIUM HYDROX 2400MG/30ML ORAL SUSPENSION 30 ML CUP PO PRN (21:00)
[2017-07-20] MEDS ORDERED: P-EPHED 60MG/TRIPROLIDI 2.5MG TABLET PO PRN (21:00)
[2017-07-20] MEDS ORDERED: MENTHOL/PHENOL 1 EACH UD MM PRN (21:00)
[2017-07-20] MEDS ORDERED: guaiFENesin/D-METHORPHAN HB 10 ML UNIT-DOSE CUPS PO PRN (21:00)
[2017-07-20] MEDS ORDERED: METHADONE HCL 10 MG TABLET (FOR DETOX USE ONLY) PO ONE ×2 (21:00→23:00)
[2017-07-20] MEDS ORDERED: ALBUTEROL SO4 18 GM HFA INHALER IH PRN (21:02)
[2017-07-20] MEDS ORDERED: METHADONE HCL 10 MG TABLET (FOR DETOX USE ONLY) ONE (23:40)
[2017-07-20] MEDS: chlordiazePOXIDE HCL 25 MG CAPSULE PO SCH (23:43)
[2017-07-20] MEDS: THIAMINE HCL 100 MG TABLET (FP) PO SCH (23:45)
[2017-07-21] MEDS: chlordiazePOXIDE HCL 25 MG CAPSULE PO SCH ×4 (05:57→22:17)
[2017-07-21] MEDS ORDERED: DOCUSATE SODIUM 100 MG CAPSULE (FP) PO PRN (09:44)
--- NOTE | 2017-07-21 09:47 | PN ---
S CIWA - CIWA Score Nausea/Vomitin-Mild Nausea/No Vomiting Muscle Tremors: 4-Moderate,w/Arms Extend Anxiety: 4-Mod. Anxious/Guarded Agitation: 4-Moderately Restless Paroxysmal Sweats: 1-Minimal Palms Moist Orientation: 0-Oriented Tacttile Disturbances: 1-Very Mild Itch/Numbness Auditory Disturbances: 0-None Visual Disturbances: 0-None Headache: 0-None Present CIWA-Ar Total Score: 15 [facility] COWS - Scale Resting Pulse: 0= MD 80 or Below Sweatin= Chills/Flushing Restless Observation: 3= Extraneous Movement Pupil Size: 0= Normal to Room Light Bone or Joint Aches: 2= Severe Diffuse Aches Runny Nose/ Eye Tearin= Runny Nose/Eyes GI Upset > 30mins: 2= Nausea/Diarrhea Tremor Observation of Outstretched Hands: 2= Slight Tremor Visible Yawning Observation: 2= >3x During Session Anxiety or Irritability: 2=Irritable/Anxious Goose Flesh Skin: 0=Smooth Skin COWS Score: 16 [facility] Progress Note (SOAP) Subjective: body ache tremor gi distress sweat tremor restlessness Objective: 07/21/17 09:47 Vital Signs Temperature 97.9 F 07/21/17 06:00 Pulse Rate 73 07/21/17 06:00 Respiratory Rate 18 07/21/17 06:00 Blood Pressure 125/55 07/21/17 06:00 O2 Sat by Pulse Oximetry (%) 07/21/17 09:48 lab not available at this time Assessment: 07/21/17 09:48 withdrawal sx Plan: continue detox
[2017-07-21 09:49] LABS: HEMATOCRIT 35.7 % (32.4-45.2); MCH 26.8 pg (25.7-33.7); MCHC 33.6 g/dl (32.0-36.0); MEAN CELL VOLUME 79.8 fl (80-96); MEAN PLT VOLUME 8.5 fl (7.5-11.1); PLATELET COUNT 248 K/MM3 (134-434); RBC 4.47 M/mm3 (3.60-5.2); RDW 15.2 % (11.6-15.6); WHITE BLOOD COUNT 8.9 K/mm3 (4.0-10.0)
[2017-07-21 09:55] LABS: URINE APPEARANCE SLCLOUDY; URINE BILIRUBIN NEGATIVE (<2.0 mg/dL); URINE COLOR YELLOW; URINE GLUCOSE (UA) NEGATIVE (NEGATIVE); URINE KETONE NEGATIVE (NEGATIVE); URINE LEUK ESTERASE TRACE (NEGATIVE); URINE NITRITE NEGATIVE (NEGATIVE); URINE PROTEIN NEGATIVE (NEGATIVE); URINE UROBILINOGEN NEGATIVE mg/dL (0.2-1.0)
[2017-07-21] MEDS ORDERED: METHADONE HCL 10 MG TABLET (FOR DETOX USE ONLY) PO SCH (10:00)
[2017-07-21 10:06] LABS: ALBUMIN 3.5 g/dl (3.4-5.0); ANION GAP 5 (8-16); BLOOD UREA NITROGEN 11 mg/dL (7-18); CALCIUM 8.3 mg/dL (8.5-10.1); CHLORIDE 109 mmol/L (98-107); CO2 25 mmol/L (21-32); GLUCOSE,RANDOM 91 mg/dL (74-106); POTASSIUM 3.9 mmol/L (3.5-5.1); SODIUM 139 mmol/L (136-145)
[2017-07-21 10:12] LABS: ALK PHOS 58 U/L (45-117); BILIRUBIN,TOTAL 0.4 mg/dL (0.2-1.0); SGOT/AST 20 U/L (15-37); SGPT/ALT 19 U/L (12-78); TOT PROT 6.3 g/dl (6.4-8.2)
[2017-07-21] MEDS: PRENATAL VITAMINS W/ FOLIC ACID TABLET (FP) PO SCH (10:22)
[2017-07-21] MEDS: NICOTINE 14 MG/24 HOURS TOPICAL PATCH TD SCH (10:23)
[2017-07-21 10:32] LABS: EPI CELLS RARE /HPF (FEW); URINE BACTERIA FEW /hpf (NONE SEEN); URINE MUCUS RARE
[2017-07-21 11:31] LABS: RPR REACTIVE 1:2 (NONREACTIVE)
--- NOTE | 2017-07-21 12:29 | EKG ---
Test Reason : Blood Pressure : / mmHG Vent. Rate : 061 BPM Atrial Rate : 061 BPM P-R Int : 108 ms QRS Dur : 088 ms QT Int : 442 ms P-R-T Axes : 064 075 055 degrees QTc Int : 444 ms SINUS RHYTHM WITH SHORT HI OTHERWISE NORMAL ECG WHEN COMPARED WITH ECG OF 18-MAY-2017 17:27, NO SIGNIFICANT CHANGE WAS FOUND Confirmed by MEGHAN BLANKENSHIP MD ([id number]) on 07/21/2017 12:28:32 PM Referred By: Gadiel Al Confirmed By:MEGHAN BLANKENSHIP MD
[2017-07-21 13:49] LABS: TREPONEMA ANTIBODY NON REACTIVE (NONREACTIVE)
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
[2017-07-21] MEDS ORDERED: COLLOIDAL OATMEAL 1 BAR EACH TP PRN (18:59)
[2017-07-21] MEDS ORDERED: QUEtiapine FUMARATE 300 MG TABLET PO SCH (22:00)
[2017-07-21] MEDS: MELATONIN 5 MG TABLETS PO PRN (22:17)
[2017-07-21] MEDS: THIAMINE HCL 100 MG TABLET (FP) PO SCH (22:17)
[2017-07-21] MEDS: QUEtiapine FUMARATE 100 MG TABLET (FP) PO SCH (22:17)
[2017-07-21] MEDS: MINERAL OIL/PETROLAT/WATER TOPICAL CREAM 113 GM JAR TP SCH (22:18)
[2017-07-22] MEDS: chlordiazePOXIDE HCL 25 MG CAPSULE PO SCH ×3 (05:55→19:03)
[2017-07-22] MEDS: NICOTINE 14 MG/24 HOURS TOPICAL PATCH TD SCH (10:39)
[2017-07-22] MEDS: MINERAL OIL/PETROLAT/WATER TOPICAL CREAM 113 GM JAR TP SCH (10:39)
[2017-07-22] MEDS: PRENATAL VITAMINS W/ FOLIC ACID TABLET (FP) PO SCH (10:39)
[2017-07-22] MEDS: METHADONE HCL 5 MG TABLET (FOR DETOX USE ONLY) PO SCH (10:39)
--- NOTE | 2017-07-22 11:03 | PN ---
[facility] CIWA - CIWA Score Nausea/Vomitin-Mild Nausea/No Vomiting Muscle Tremors: 4-Moderate,w/Arms Extend Anxiety: 4-Mod. Anxious/Guarded Agitation: 3 Paroxysmal Sweats: 1-Minimal Palms Moist Orientation: 0-Oriented Tacttile Disturbances: 0-None Auditory Disturbances: 0-None Visual Disturbances: 0-None Headache: 0-None Present CIWA-Ar Total Score: 13 [facility] COWS - Scale Resting Pulse: 0= OK 80 or Below Sweatin= Chills/Flushing Restless Observation: 3= Extraneous Movement Pupil Size: 0= Normal to Room Light Bone or Joint Aches: 2= Severe Diffuse Aches Runny Nose/ Eye Tearin= Nasal Congestion GI Upset > 30mins: 1= Stomach Cramp Tremor Observation of Outstretched Hands: 1= Tremor [place], Not Seen Yawning Observation: 2= >3x During Session Anxiety or Irritability: 2=Irritable/Anxious Goose Flesh Skin: 0=Smooth Skin COWS Score: 13 [facility] Progress Note (SOAP) Subjective: sweat tremor anxiety restlessness gi distress trouble sleeping at night Objective: 07/22/17 11:02 Vital Signs Temperature 98.1 F 07/22/17 10:37 Pulse Rate 83 07/22/17 10:37 Respiratory Rate 18 07/22/17 10:37 Blood Pressure 130/68 07/22/17 10:37 O2 Sat by Pulse Oximetry (%) Laboratory Last Values WBC 8.9 K/mm3 (4.0-10.0) 07/21/17 07:00 RBC 4.47 M/mm3 (3.60-5.2) 07/21/17 07:00 Hgb 12.0 GM/dL (10.7-15.3) 07/21/17 07:00 Hct 35.7 % (32.4-45.2) D 07/21/17 07:00 MCV 79.8 fl (80-96) L 07/21/17 07:00 MCH 26.8 pg (25.7-33.7) 07/21/17 07:00 MCHC 33.6 g/dl (32.0-36.0) 07/21/17 07:00 RDW 15.2 % (11.6-15.6) 07/21/17 07:00 Plt Count 248 K/MM3 (134-434) 07/21/17 07:00 MPV 8.5 fl (7.5-11.1) 07/21/17 07:00 Sodium 139 mmol/L (136-145) 07/21/17 07:00 Potassium 3.9 mmol/L (3.5-5.1) 07/21/17 07:00 Chloride 109 mmol/L (98-107) H 07/21/17 07:00 Carbon Dioxide 25 mmol/L (21-32) 07/21/17 07:00 Anion Gap 5 (8-16) L 07/21/17 07:00 BUN 11 mg/dL (7-18) 07/21/17 07:00 Creatinine 1.0 mg/dL (0.55-1.02) 07/21/17 07:00 Creat Clearance w eGFR > 60 (>60) 07/21/17 07:00 Random Glucose 91 mg/dL (74-106) 07/21/17 07:00 Calcium 8.3 mg/dL (8.5-10.1) L 07/21/17 07:00 Total Bilirubin 0.4 mg/dL (0.2-1.0) D 07/21/17 07:00 AST 20 U/L (15-37) 07/21/17 07:00 ALT 19 U/L (12-78) 07/21/17 07:00 Alkaline Phosphatase 58 U/L (45-117) 07/21/17 07:00 Total Protein 6.3 g/dl (6.4-8.2) L 07/21/17 07:00 Albumin 3.5 g/dl (3.4-5.0) 07/21/17 07:00 Urine Color Yellow 07/21/17 07:00 Urine Appearance Slcloudy 07/21/17 07:00 Urine pH 6.0 (5.0-8.0) 07/21/17 07:00 Ur Specific [place] 1.014 (1.001-1.035) 07/21/17 07:00 Urine Protein Negative (NEGATIVE) 07/21/17 07:00 Urine Glucose (UA) Negative (NEGATIVE) 07/21/17 07:00 Urine Ketones Negative (NEGATIVE) 07/21/17 07:00 Urine Blood Negative (NEGATIVE) 07/21/17 07:00 Urine Nitrite Negative (NEGATIVE) 07/21/17 07:00 Urine Bilirubin Negative (<2.0 mg/dL) 07/21/17 07:00 Urine Urobilinogen Negative mg/dL (0.2-1.0) 07/21/17 07:00 Ur Leukocyte Esterase Trace (NEGATIVE) 07/21/17 07:00 Urine WBC (Auto) 5 /hpf (3-5) 07/21/17 07:00 Urine RBC (Auto) 3 /hpf (0-3) 07/21/17 07:00 Ur Epithelial Cells Rare /HPF (FEW) 07/21/17 07:00 Urine Bacteria Few /hpf (NONE SEEN) 07/21/17 07:00 Urine Mucus Rare 07/21/17 07:00 RPR Titer Reactive 1:2 (NONREACTIVE) H D 07/21/17 07:00 T.pallidum Ab (MHA) Non reactive (NONREACTIVE) 07/21/17 07:00 lab noted Assessment: 07/22/17 11:02 withdrawal sx Plan: continue detox
[2017-07-22] MEDS: chlordiazePOXIDE HCL 25 MG CAPSULE PO PRN (15:20)
[2017-07-22] MEDS: ALBUTEROL SO4 0.083% IH SOL 2.5 MG/3 ML VIAL.NEB. NEB PRN (18:44)
[2017-07-22] MEDS: QUEtiapine FUMARATE 100 MG TABLET (FP) PO SCH (22:15)
[2017-07-22] MEDS: chlordiazePOXIDE 5 MG CAPSULE PO SCH (22:15)
[2017-07-22] MEDS: THIAMINE HCL 100 MG TABLET (FP) PO SCH (22:15)
[2017-07-23] MEDS: chlordiazePOXIDE 5 MG CAPSULE PO SCH ×3 (05:18→17:55)
[2017-07-23] MEDS: ALBUTEROL SO4 0.083% IH SOL 2.5 MG/3 ML VIAL.NEB. NEB PRN ×2 (09:11→20:04)
--- NOTE | 2017-07-23 09:42 | PN ---
S Progress Note (SOAP) Subjective: body ache joint pain sweat tremor mild gi distress trouble sleep at night Objective: 07/23/17 09:41 Vital Signs Temperature 98.2 F 07/23/17 06:09 Pulse Rate 93 H 07/23/17 09:28 Respiratory Rate 18 07/23/17 09:28 Blood Pressure 126/69 07/23/17 09:28 O2 Sat by Pulse Oximetry (%) Laboratory Last Values WBC 8.9 K/mm3 (4.0-10.0) 07/21/17 07:00 RBC 4.47 M/mm3 (3.60-5.2) 07/21/17 07:00 Hgb 12.0 GM/dL (10.7-15.3) 07/21/17 07:00 Hct 35.7 % (32.4-45.2) D 07/21/17 07:00 MCV 79.8 fl (80-96) L 07/21/17 07:00 MCH 26.8 pg (25.7-33.7) 07/21/17 07:00 MCHC 33.6 g/dl (32.0-36.0) 07/21/17 07:00 RDW 15.2 % (11.6-15.6) 07/21/17 07:00 Plt Count 248 K/MM3 (134-434) 07/21/17 07:00 MPV 8.5 fl (7.5-11.1) 07/21/17 07:00 Sodium 139 mmol/L (136-145) 07/21/17 07:00 Potassium 3.9 mmol/L (3.5-5.1) 07/21/17 07:00 Chloride 109 mmol/L (98-107) H 07/21/17 07:00 Carbon Dioxide 25 mmol/L (21-32) 07/21/17 07:00 Anion Gap 5 (8-16) L 07/21/17 07:00 BUN 11 mg/dL (7-18) 07/21/17 07:00 Creatinine 1.0 mg/dL (0.55-1.02) 07/21/17 07:00 Creat Clearance w eGFR > 60 (>60) 07/21/17 07:00 Random Glucose 91 mg/dL (74-106) 07/21/17 07:00 Calcium 8.3 mg/dL (8.5-10.1) L 07/21/17 07:00 Total Bilirubin 0.4 mg/dL (0.2-1.0) D 07/21/17 07:00 AST 20 U/L (15-37) 07/21/17 07:00 ALT 19 U/L (12-78) 07/21/17 07:00 Alkaline Phosphatase 58 U/L (45-117) 07/21/17 07:00 Total Protein 6.3 g/dl (6.4-8.2) L 07/21/17 07:00 Albumin 3.5 g/dl (3.4-5.0) 07/21/17 07:00 Urine Color Yellow 07/21/17 07:00 Urine Appearance Slcloudy 07/21/17 07:00 Urine pH 6.0 (5.0-8.0) 07/21/17 07:00 Ur Specific [place] 1.014 (1.001-1.035) 07/21/17 07:00 Urine Protein Negative (NEGATIVE) 07/21/17 07:00 Urine Glucose (UA) Negative (NEGATIVE) 07/21/17 07:00 Urine Ketones Negative (NEGATIVE) 07/21/17 07:00 Urine Blood Negative (NEGATIVE) 07/21/17 07:00 Urine Nitrite Negative (NEGATIVE) 07/21/17 07:00 Urine Bilirubin Negative (<2.0 mg/dL) 07/21/17 07:00 Urine Urobilinogen Negative mg/dL (0.2-1.0) 07/21/17 07:00 Ur Leukocyte Esterase Trace (NEGATIVE) 07/21/17 07:00 Urine WBC (Auto) 5 /hpf (3-5) 07/21/17 07:00 Urine RBC (Auto) 3 /hpf (0-3) 07/21/17 07:00 Ur Epithelial Cells Rare /HPF (FEW) 07/21/17 07:00 Urine Bacteria Few /hpf (NONE SEEN) 07/21/17 07:00 Urine Mucus Rare 07/21/17 07:00 RPR Titer Reactive 1:2 (NONREACTIVE) H D 07/21/17 07:00 T.pallidum Ab (MHA) Non reactive (NONREACTIVE) 07/21/17 07:00 lab noted Assessment: 07/23/17 09:42 withdrawal sx Plan: continue detox
[2017-07-23] MEDS: METHADONE HCL 5 MG TABLET (FOR DETOX USE ONLY) PO SCH (10:05)
[2017-07-23] MEDS: NICOTINE 14 MG/24 HOURS TOPICAL PATCH TD SCH (10:06)
[2017-07-23] MEDS: MINERAL OIL/PETROLAT/WATER TOPICAL CREAM 113 GM JAR TP SCH (10:06)
[2017-07-23] MEDS: PRENATAL VITAMINS W/ FOLIC ACID TABLET (FP) PO SCH (10:06)
[2017-07-23] MEDS: chlordiazePOXIDE HCL 25 MG CAPSULE PO PRN (13:33)
[2017-07-23] MEDS: DOCUSATE SODIUM 100 MG CAPSULE (FP) PO SCH ×2 (13:33→22:04)
[2017-07-23] MEDS: MELATONIN 5 MG TABLETS PO PRN (22:03)
[2017-07-23] MEDS: THIAMINE HCL 100 MG TABLET (FP) PO SCH (22:03)
[2017-07-23] MEDS: GABAPENTIN 300 MG CAPSULE (FP) PO PRN (22:03)
[2017-07-23] MEDS: QUEtiapine FUMARATE 100 MG TABLET (FP) PO SCH (22:03)
[2017-07-23] MEDS: chlordiazePOXIDE HCL 10 MG CAPSULE PO SCH (22:03)
[2017-07-24] MEDS: DOCUSATE SODIUM 100 MG CAPSULE (FP) PO SCH ×3 (05:38→22:26)
[2017-07-24] MEDS: chlordiazePOXIDE HCL 10 MG CAPSULE PO SCH ×3 (05:38→17:45)
[2017-07-24] MEDS: ALBUTEROL SO4 0.083% IH SOL 2.5 MG/3 ML VIAL.NEB. NEB PRN (07:01)
[2017-07-24] MEDS ORDERED: METHADONE HCL 10 MG TABLET (FOR DETOX USE ONLY) PO SCH (10:00)
[2017-07-24] MEDS: PRENATAL VITAMINS W/ FOLIC ACID TABLET (FP) PO SCH (10:37)
[2017-07-24] MEDS: MINERAL OIL/PETROLAT/WATER TOPICAL CREAM 113 GM JAR TP SCH (10:38)
[2017-07-24] MEDS: NICOTINE 14 MG/24 HOURS TOPICAL PATCH TD SCH (10:38)
[2017-07-24] MEDS: NICOTINE POLACRILEX 2 MG GUM BC PRN ×2 (10:39→22:46)
--- NOTE | 2017-07-24 11:47 | PN ---
[facility] Progress Note (SOAP) Subjective: feeling better less sweat no tremor denies body ache denies pain alert oriented x 3 Objective: 07/24/17 11:46 Vital Signs Temperature 97.5 F L 07/24/17 10:00 Pulse Rate 101 H 07/24/17 10:00 Respiratory Rate 18 07/24/17 10:00 Blood Pressure 132/60 07/24/17 10:00 O2 Sat by Pulse Oximetry (%) Laboratory Last Values WBC 8.9 K/mm3 (4.0-10.0) 07/21/17 07:00 RBC 4.47 M/mm3 (3.60-5.2) 07/21/17 07:00 Hgb 12.0 GM/dL (10.7-15.3) 07/21/17 07:00 Hct 35.7 % (32.4-45.2) D 07/21/17 07:00 MCV 79.8 fl (80-96) L 07/21/17 07:00 MCH 26.8 pg (25.7-33.7) 07/21/17 07:00 MCHC 33.6 g/dl (32.0-36.0) 07/21/17 07:00 RDW 15.2 % (11.6-15.6) 07/21/17 07:00 Plt Count 248 K/MM3 (134-434) 07/21/17 07:00 MPV 8.5 fl (7.5-11.1) 07/21/17 07:00 Sodium 139 mmol/L (136-145) 07/21/17 07:00 Potassium 3.9 mmol/L (3.5-5.1) 07/21/17 07:00 Chloride 109 mmol/L (98-107) H 07/21/17 07:00 Carbon Dioxide 25 mmol/L (21-32) 07/21/17 07:00 Anion Gap 5 (8-16) L 07/21/17 07:00 BUN 11 mg/dL (7-18) 07/21/17 07:00 Creatinine 1.0 mg/dL (0.55-1.02) 07/21/17 07:00 Creat Clearance w eGFR > 60 (>60) 07/21/17 07:00 Random Glucose 91 mg/dL (74-106) 07/21/17 07:00 Calcium 8.3 mg/dL (8.5-10.1) L 07/21/17 07:00 Total Bilirubin 0.4 mg/dL (0.2-1.0) D 07/21/17 07:00 AST 20 U/L (15-37) 07/21/17 07:00 ALT 19 U/L (12-78) 07/21/17 07:00 Alkaline Phosphatase 58 U/L (45-117) 07/21/17 07:00 Total Protein 6.3 g/dl (6.4-8.2) L 07/21/17 07:00 Albumin 3.5 g/dl (3.4-5.0) 07/21/17 07:00 Urine Color Yellow 07/21/17 07:00 Urine Appearance Slcloudy 07/21/17 07:00 Urine pH 6.0 (5.0-8.0) 07/21/17 07:00 Ur Specific [place] 1.014 (1.001-1.035) 07/21/17 07:00 Urine Protein Negative (NEGATIVE) 07/21/17 07:00 Urine Glucose (UA) Negative (NEGATIVE) 07/21/17 07:00 Urine Ketones Negative (NEGATIVE) 07/21/17 07:00 Urine Blood Negative (NEGATIVE) 07/21/17 07:00 Urine Nitrite Negative (NEGATIVE) 07/21/17 07:00 Urine Bilirubin Negative (<2.0 mg/dL) 07/21/17 07:00 Urine Urobilinogen Negative mg/dL (0.2-1.0) 07/21/17 07:00 Ur Leukocyte Esterase Trace (NEGATIVE) 07/21/17 07:00 Urine WBC (Auto) 5 /hpf (3-5) 07/21/17 07:00 Urine RBC (Auto) 3 /hpf (0-3) 07/21/17 07:00 Ur Epithelial Cells Rare /HPF (FEW) 07/21/17 07:00 Urine Bacteria Few /hpf (NONE SEEN) 07/21/17 07:00 Urine Mucus Rare 07/21/17 07:00 RPR Titer Reactive 1:2 (NONREACTIVE) H D 07/21/17 07:00 T.pallidum Ab (MHA) Non reactive (NONREACTIVE) 07/21/17 07:00 lab norted Assessment: 07/24/17 11:46 mild withdrawal sx Plan: medically supervised detox
[2017-07-24] MEDS: GABAPENTIN 300 MG CAPSULE (FP) PO PRN ×2 (13:42→22:26)
[2017-07-24] MEDS: QUEtiapine FUMARATE 100 MG TABLET (FP) PO SCH (22:26)
[2017-07-24] MEDS: THIAMINE HCL 100 MG TABLET (FP) PO SCH (22:27)
[2017-07-25] MEDS ORDERED: METHADONE HCL 5 MG TABLET (FOR DETOX USE ONLY) PO SCH (06:00)
[2017-07-25] MEDS: DOCUSATE SODIUM 100 MG CAPSULE (FP) PO SCH (06:39)
[2017-07-25 07:28] VITALS: BP 110/64; PULSE 73; TEMP 98.1
--- NOTE | 2017-07-25 09:38 | DS ---
[facility] Detox Discharge Summary Admission Date: 07/20/17 37 years old female admitted on 07/20/17 for alcohol and opioid withdrawal sx completed detox regimen tolerated well denies opioid and alcohol withdrawal sx agrees aftercare 12 step community self help groups Discharge Date: 07/25/17 - History Present History: Alcohol Dependence, Opioid Dependence Additional Comments: 37 years old female admitted on 07/20/17 for opioid and alcohol withdrawal sx completed detox regimen tolerated well denies denies opioid and alcohol withdrawal sx aftercare community self help groups as per school guidance counselor arranged - Physical Exam Results Vital Signs: Vital Signs Temperature 98.1 F 07/25/17 07:27 Pulse Rate 73 07/25/17 07:27 Respiratory Rate 18 07/25/17 07:27 Blood Pressure 110/64 07/25/17 07:27 O2 Sat by Pulse Oximetry (%) Pertinent Admission Physical Exam Findings: Vital Signs Temperature 98.1 F 07/25/17 07:27 Pulse Rate 73 07/25/17 07:27 Respiratory Rate 18 07/25/17 07:27 Blood Pressure 110/64 07/25/17 07:27 O2 Sat by Pulse Oximetry (%) Laboratory Last Values WBC 8.9 K/mm3 (4.0-10.0) 07/21/17 07:00 RBC 4.47 M/mm3 (3.60-5.2) 07/21/17 07:00 Hgb 12.0 GM/dL (10.7-15.3) 07/21/17 07:00 Hct 35.7 % (32.4-45.2) D 07/21/17 07:00 MCV 79.8 fl (80-96) L 07/21/17 07:00 MCH 26.8 pg (25.7-33.7) 07/21/17 07:00 MCHC 33.6 g/dl (32.0-36.0) 07/21/17 07:00 RDW 15.2 % (11.6-15.6) 07/21/17 07:00 Plt Count 248 K/MM3 (134-434) 07/21/17 07:00 MPV 8.5 fl (7.5-11.1) 07/21/17 07:00 Sodium 139 mmol/L (136-145) 07/21/17 07:00 Potassium 3.9 mmol/L (3.5-5.1) 07/21/17 07:00 Chloride 109 mmol/L (98-107) H 07/21/17 07:00 Carbon Dioxide 25 mmol/L (21-32) 07/21/17 07:00 Anion Gap 5 (8-16) L 07/21/17 07:00 BUN 11 mg/dL (7-18) 07/21/17 07:00 Creatinine 1.0 mg/dL (0.55-1.02) 07/21/17 07:00 Creat Clearance w eGFR > 60 (>60) 07/21/17 07:00 Random Glucose 91 mg/dL (74-106) 07/21/17 07:00 Calcium 8.3 mg/dL (8.5-10.1) L 07/21/17 07:00 Total Bilirubin 0.4 mg/dL (0.2-1.0) D 07/21/17 07:00 AST 20 U/L (15-37) 07/21/17 07:00 ALT 19 U/L (12-78) 07/21/17 07:00 Alkaline Phosphatase 58 U/L (45-117) 07/21/17 07:00 Total Protein 6.3 g/dl (6.4-8.2) L 07/21/17 07:00 Albumin 3.5 g/dl (3.4-5.0) 07/21/17 07:00 Urine Color Yellow 07/21/17 07:00 Urine Appearance Slcloudy 07/21/17 07:00 Urine pH 6.0 (5.0-8.0) 07/21/17 07:00 Ur Specific [place] 1.014 (1.001-1.035) 07/21/17 07:00 Urine Protein Negative (NEGATIVE) 07/21/17 07:00 Urine Glucose (UA) Negative (NEGATIVE) 07/21/17 07:00 Urine Ketones Negative (NEGATIVE) 07/21/17 07:00 Urine Blood Negative (NEGATIVE) 07/21/17 07:00 Urine Nitrite Negative (NEGATIVE) 07/21/17 07:00 Urine Bilirubin Negative (<2.0 mg/dL) 07/21/17 07:00 Urine Urobilinogen Negative mg/dL (0.2-1.0) 07/21/17 07:00 Ur Leukocyte Esterase Trace (NEGATIVE) 07/21/17 07:00 Urine WBC (Auto) 5 /hpf (3-5) 07/21/17 07:00 Urine RBC (Auto) 3 /hpf (0-3) 07/21/17 07:00 Ur Epithelial Cells Rare /HPF (FEW) 07/21/17 07:00 Urine Bacteria Few /hpf (NONE SEEN) 07/21/17 07:00 Urine Mucus Rare 07/21/17 07:00 RPR Titer Reactive 1:2 (NONREACTIVE) H D 07/21/17 07:00 T.pallidum Ab (MHA) Non reactive (NONREACTIVE) 07/21/17 07:00 lab noted - Treatment Hospital Course: Detox Protocol Followed, Detoxed Safely, Responded well, Discharged Condition Good, Rehab Referral Accepted Patient has Accepted a Rehab Referral to: community [facility] help groups as per counselor arranged - Medication Discharge Medications: Ambulatory Orders hydrOXYzine PAMOATE [Vistaril -] 50 mg PO Q8H PRN #30 capsule 04/01/17 Bupropion HCl [Bupropion Xl] 150 mg PO DAILY 05/18/17 Quetiapine Fumarate [Seroquel -] 100 mg PO HS 05/18/17 Bupropion HCl [Bupropion Xl] 150 mg PO DAILY #30 tab.er.24h 07/22/17 Quetiapine Fumarate [Seroquel] 100 mg PO HS #30 tablet 07/22/17 Albuterol Sulfate Inhaler - [Ventolin HFA Inhaler -] 2 puff IH Q4H PRN #1 inhaler 07/24/17 Gabapentin [Neurontin -] 300 mg PO Q8H #90 capsule 07/24/17 - Diagnosis (1) Alcohol dependence with uncomplicated withdrawal Status: Acute (2) Nicotine dependence Status: Acute Qualifiers: Nicotine product type: cigarettes Substance use status: in withdrawal Qualified Code(s): F17.213 - Nicotine dependence, cigarettes, with withdrawal (3) Opioid dependence with withdrawal Status: Acute (4) Asthma Status: Chronic Qualifiers: Asthma severity: mild Asthma persistence: intermittent Asthma complication type: unspecified Qualified Code(s): J45.20 - Mild intermittent asthma, uncomplicated - AMA Did Patient Leave Against Medical Advice: No
== END 2017-07-25 07:55 | disposition home or self-care (01) | DRG 773 ==
LOC: YASAS 19:50 → Y6N 20:13
PROVIDERS: ADMIT Internal Medicine; ATTEND Internal Medicine
PROC: HZ2ZZZZ Detoxification Services for Substance Abuse Treatment (ICD-10-PCS; principal; 2017-07-20)
DX: F11.23 Opioid dependence with withdrawal (principal); F10.230 Alcohol dependence with withdrawal, uncomplicated; F12.20 Cannabis dependence, uncomplicated; F43.10 Post-traumatic stress disorder, unspecified; F31.9 Bipolar disorder, unspecified; G47.00 Insomnia, unspecified; F41.9 Anxiety disorder, unspecified; J45.21 Mild intermittent asthma with (acute) exacerbation; D64.9 Anemia, unspecified; Z91.5 Personal history of self-harm
CPT/HCPCS: 36415; 80053; 81003; 81015; 85027; 86593; 86780; 93005; 93010; 94640

== ENCOUNTER 2017-12-26 18:20 | Inpatient (IN) | payer OTHER ==
[2017-12-26 20:09] VITALS: BMI 32.1
[2017-12-26] MEDS ORDERED: METHADONE HCL 10 MG TABLET (FOR DETOX USE ONLY) PO ONE ×2 (23:00→23:22)
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
[2017-12-26] MEDS ORDERED: MAGNESIUM HYDROX 2400MG/30ML ORAL SUSPENSION 30 ML CUP PO PRN (23:22)
[2017-12-26] MEDS ORDERED: MAG HYDROX/AL HYDROX/SIMETH 30 ML UNIT-DOSE CUP PO PRN (23:22)
[2017-12-26] MEDS ORDERED: NICOTINE POLACRILEX 2 MG GUM BC PRN (23:22)
[2017-12-26] MEDS ORDERED: P-EPHED 60MG/TRIPROLIDI 2.5MG TABLET PO PRN (23:22)
[2017-12-26] MEDS ORDERED: guaiFENesin/D-METHORPHAN HB 10 ML UNIT-DOSE CUPS PO PRN (23:22)
[2017-12-26] MEDS ORDERED: LOPERAMIDE HCL 2 MG CAPSULE PO PRN (23:22)
[2017-12-26] MEDS ORDERED: ACETAMINOPHEN 325 MG TABLET (FP) PO PRN (23:22)
[2017-12-26] MEDS ORDERED: MENTHOL/PHENOL 1 EACH UD MM PRN (23:22)
[2017-12-26] MEDS ORDERED: ALBUTEROL SO4 2.5/IPRATROPIUM 0.5 INH SOL 3 ML VIAL.NEB. NEB PRN (23:24)
[2017-12-26] MEDS ORDERED: ALBUTEROL SO4 8 GM HFA INHALER IH PRN (23:24)
[2017-12-26] MEDS: DOCUSATE SODIUM 100 MG CAPSULE (FP) PO SCH (23:51)
[2017-12-26] MEDS: diazePAM 5 MG TABLET PO PRN (23:52)
--- NOTE | 2017-12-27 09:57 | PN ---
BHS COWS - Scale Resting Pulse: 0= MD 80 or Below Sweatin= Chills/Flushing Restless Observation: 0= Sits Still Pupil Size: 1= Pupils >than Normal Bone or Joint Aches: 2= Severe Diffuse Aches Runny Nose/ Eye Tearin= Runny Nose/Eyes GI Upset > 30mins: 0= None Tremor Observation of Outstretched Hands: 0= None Yawning Observation: 1= 1-2x During Session Anxiety or Irritability: 1=Feels Anxious/Irritable Goose Flesh Skin: 0=Smooth Skin COWS Score: 8 BHS Progress Note (SOAP) Subjective: PT C/O BODY ACHE, NASAL CONGESTION, ANXIETY Objective: 12/27/17 09:55 Vital Signs Temperature 97.9 F 12/27/17 06:00 Pulse Rate 60 12/27/17 06:00 Respiratory Rate 18 12/27/17 06:00 Blood Pressure 129/58 L 12/27/17 06:00 O2 Sat by Pulse Oximetry (%) ALERT AND ORIENTED X 3 AMB AD ZULMA EXT FULL ROM, NO EDEMA ANXIOUS BUT CALM Assessment: 12/27/17 09:56 WITHDRAWAL SYNDROME Plan: DETOX ORDERED CONTINUE ORAL FLUIDS CONTINUE TO MONITOR CLINICALLY
[2017-12-27] MEDS ORDERED: METHADONE HCL 10 MG TABLET (FOR DETOX USE ONLY) PO ONE (10:00)
[2017-12-27] MEDS ORDERED: MAGNESIUM CITRATE 300 ML BOTTLE PO ONE (10:00)
[2017-12-27 10:15] LABS: HEMATOCRIT 39.9 % (32.4-45.2); HEMOGLOBIN 12.6 GM/dL (10.7-15.3); MCH 25.5 pg (25.7-33.7); MCHC 31.7 g/dl (32.0-36.0); MEAN CELL VOLUME 80.5 fl (80-96); MEAN PLT VOLUME 8.4 fl (7.5-11.1); PLATELET COUNT 251 K/MM3 (134-434); RBC 4.95 M/mm3 (3.60-5.2); WHITE BLOOD COUNT 9.7 K/mm3 (4.0-10.0)
[2017-12-27] MEDS: PRENATAL VITAMINS W/ FOLIC ACID TABLET (FP) PO SCH (10:21)
[2017-12-27] MEDS: NICOTINE 14 MG/24 HOURS TOPICAL PATCH TD SCH (10:22)
[2017-12-27] MEDS: diazePAM 5 MG TABLET PO PRN ×2 (10:23→17:33)
[2017-12-27 10:51] LABS: ALBUMIN 3.4 g/dl (3.4-5.0); ALK PHOS 60 U/L (45-117); ANION GAP 8 MMOL/L (8-16); BILIRUBIN,TOTAL 0.5 mg/dL (0.2-1); BLOOD UREA NITROGEN 13 mg/dL (7-18); CALCIUM 8.8 mg/dL (8.5-10.1); CHLORIDE 105 mmol/L (98-107); CO2 26 mmol/L (21-32); CREATININE 0.9 mg/dL (0.55-1.3); GLUCOSE,RANDOM 100 mg/dL (74-106); POTASSIUM 3.8 mmol/L (3.5-5.1); SGOT/AST 17 U/L (15-37); SGPT/ALT 22 U/L (13-61); SODIUM 140 mmol/L (136-145); TOT PROT 6.5 g/dl (6.4-8.2)
[2017-12-27 11:40] LABS: RPR REACTIVE 1:4 (NONREACTIVE)
[2017-12-27 11:42] LABS: TREPONEMA ANTIBODY NON REACTIVE (NONREACTIVE)
[2017-12-27 12:10] LABS: RPR REACTIVE 1:4 (NONREACTIVE)
[2017-12-27 14:25] LABS: TREPONEMA ANTIBODY NON REACTIVE (NONREACTIVE)
--- NOTE | 2017-12-27 17:26 | EKG ---
Test Reason : Blood Pressure : / mmHG Vent. Rate : 064 BPM Atrial Rate : 064 BPM P-R Int : 114 ms QRS Dur : 086 ms QT Int : 440 ms P-R-T Axes : 082 074 069 degrees QTc Int : 453 ms NORMAL SINUS RHYTHM POSSIBLE LEFT ATRIAL ENLARGEMENT BORDERLINE ECG WHEN COMPARED WITH ECG OF 11-OCT-2017 22:01, QUESTIONABLE CHANGE IN QRS AXIS NONSPECIFIC T WAVE ABNORMALITY NO LONGER EVIDENT IN INFERIOR LEADS CLINICAL CORRELATION IS RECOMMENDED Confirmed by KERON BENSON, WILLOW ([id number]) on 12/27/2017 5:25:40 PM Referred By: Alicja SELBY Confirmed By:WILLOW CABRALES MD
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
[2017-12-27] MEDS: DOCUSATE SODIUM 100 MG CAPSULE (FP) PO SCH (23:05)
[2017-12-27] MEDS: THIAMINE HCL 100 MG TABLET (FP) PO SCH (23:06)
[2017-12-27] MEDS: QUEtiapine FUMARATE 100 MG TABLET (FP) PO SCH (23:06)
[2017-12-28] MEDS: diazePAM 5 MG TABLET PO PRN ×4 (07:16→22:40)
[2017-12-28] MEDS ORDERED: METHADONE HCL 5 MG TABLET (FOR DETOX USE ONLY) PO ONE (10:00)
[2017-12-28] MEDS: PRENATAL VITAMINS W/ FOLIC ACID TABLET (FP) PO SCH (10:58)
[2017-12-28] MEDS: NICOTINE 14 MG/24 HOURS TOPICAL PATCH TD SCH (10:58)
[2017-12-28] MEDS ORDERED: BACLOFEN 10 MG TABLET (FP) PO ONE (11:05)
[2017-12-28] MEDS ORDERED: COLLOIDAL OATMEAL 1 BAR EACH TP PRN (11:56)
--- NOTE | 2017-12-28 16:59 | PN ---
BHS COWS - Scale Resting Pulse: 0= ID 80 or Below Sweatin= Chills/Flushing Restless Observation: 1= Difficult to Sit Still Pupil Size: 1= Pupils >than Normal Bone or Joint Aches: 1= Mild Discomfort Runny Nose/ Eye Tearin= Nasal Congestion GI Upset > 30mins: 2= Nausea/Diarrhea Tremor Observation of Outstretched Hands: 1= Tremor [place], Not Seen Yawning Observation: 1= 1-2x During Session Anxiety or Irritability: 1=Feels Anxious/Irritable Goose Flesh Skin: 0=Smooth Skin COWS Score: 10 BHS Progress Note (SOAP) Subjective: sweat tremor body ache back pain trouble sleep at might Objective: 12/28/17 16:59 Vital Signs Temperature 97.9 F 12/28/17 14:33 Pulse Rate 82 12/28/17 14:33 Respiratory Rate 18 12/28/17 14:33 Blood Pressure 140/59 L 12/28/17 14:33 O2 Sat by Pulse Oximetry (%) Laboratory Last Values WBC 9.7 K/mm3 (4.0-10.0) 12/27/17 08:00 RBC 4.95 M/mm3 (3.60-5.2) 12/27/17 08:00 Hgb 12.6 GM/dL (10.7-15.3) 12/27/17 08:00 Hct 39.9 % (32.4-45.2) 12/27/17 08:00 MCV 80.5 fl (80-96) 12/27/17 08:00 MCH 25.5 pg (25.7-33.7) L 12/27/17 08:00 MCHC 31.7 g/dl (32.0-36.0) L 12/27/17 08:00 RDW 16.0 % (11.6-15.6) H 12/27/17 08:00 Plt Count 251 K/MM3 (134-434) 12/27/17 08:00 MPV 8.4 fl (7.5-11.1) 12/27/17 08:00 Sodium 140 mmol/L (136-145) 12/27/17 08:00 Potassium 3.8 mmol/L (3.5-5.1) 12/27/17 08:00 Chloride 105 mmol/L (98-107) 12/27/17 08:00 Carbon Dioxide 26 mmol/L (21-32) 12/27/17 08:00 Anion Gap 8 MMOL/L (8-16) 12/27/17 08:00 BUN 13 mg/dL (7-18) 12/27/17 08:00 Creatinine 0.9 mg/dL (0.55-1.3) 12/27/17 08:00 Creat Clearance w eGFR > 60 (>60) 12/27/17 08:00 Random Glucose 100 mg/dL (74-106) 12/27/17 08:00 Calcium 8.8 mg/dL (8.5-10.1) 12/27/17 08:00 Total Bilirubin 0.5 mg/dL (0.2-1) 12/27/17 08:00 AST 17 U/L (15-37) 12/27/17 08:00 ALT 22 U/L (13-61) 12/27/17 08:00 Alkaline Phosphatase 60 U/L (45-117) 12/27/17 08:00 Total Protein 6.5 g/dl (6.4-8.2) 12/27/17 08:00 Albumin 3.4 g/dl (3.4-5.0) 12/27/17 08:00 RPR Titer Reactive 1:4 (NONREACTIVE) H 12/27/17 08:00 T.pallidum Ab (MHA) Non reactive (NONREACTIVE) 12/27/17 08:00 lab noted Assessment: 12/28/17 17:00 withdrawal sx Plan: [id number] detox
[2017-12-28] MEDS: QUEtiapine FUMARATE 100 MG TABLET (FP) PO SCH (22:37)
[2017-12-28] MEDS: THIAMINE HCL 100 MG TABLET (FP) PO SCH (22:37)
[2017-12-28] MEDS: MINERAL OIL/PETROLAT/WATER TOPICAL CREAM 113 GM JAR TP SCH (22:38)
[2017-12-28] MEDS: DOCUSATE SODIUM 100 MG CAPSULE (FP) PO SCH (22:38)
[2017-12-29] MEDS ORDERED: METHADONE HCL 5 MG TABLET (FOR DETOX USE ONLY) PO ONE (10:00)
[2017-12-29] MEDS: PRENATAL VITAMINS W/ FOLIC ACID TABLET (FP) PO SCH (10:34)
[2017-12-29] MEDS: NICOTINE 14 MG/24 HOURS TOPICAL PATCH TD SCH (10:35)
[2017-12-29] MEDS: diazePAM 5 MG TABLET PO PRN ×3 (10:35→22:16)
--- NOTE | 2017-12-29 11:41 | PN ---
BHS Progress Note (SOAP) Subjective: body aches, joints pain, sweat tremor anxiety Objective: 12/29/17 11:40 Vital Signs Temperature 99.1 F 12/29/17 09:10 Pulse Rate 63 12/29/17 09:10 Respiratory Rate 18 12/29/17 09:10 Blood Pressure 127/66 12/29/17 09:10 O2 Sat by Pulse Oximetry (%) Laboratory Last Values WBC 9.7 K/mm3 (4.0-10.0) 12/27/17 08:00 RBC 4.95 M/mm3 (3.60-5.2) 12/27/17 08:00 Hgb 12.6 GM/dL (10.7-15.3) 12/27/17 08:00 Hct 39.9 % (32.4-45.2) 12/27/17 08:00 MCV 80.5 fl (80-96) 12/27/17 08:00 MCH 25.5 pg (25.7-33.7) L 12/27/17 08:00 MCHC 31.7 g/dl (32.0-36.0) L 12/27/17 08:00 RDW 16.0 % (11.6-15.6) H 12/27/17 08:00 Plt Count 251 K/MM3 (134-434) 12/27/17 08:00 MPV 8.4 fl (7.5-11.1) 12/27/17 08:00 Sodium 140 mmol/L (136-145) 12/27/17 08:00 Potassium 3.8 mmol/L (3.5-5.1) 12/27/17 08:00 Chloride 105 mmol/L (98-107) 12/27/17 08:00 Carbon Dioxide 26 mmol/L (21-32) 12/27/17 08:00 Anion Gap 8 MMOL/L (8-16) 12/27/17 08:00 BUN 13 mg/dL (7-18) 12/27/17 08:00 Creatinine 0.9 mg/dL (0.55-1.3) 12/27/17 08:00 Creat Clearance w eGFR > 60 (>60) 12/27/17 08:00 Random Glucose 100 mg/dL (74-106) 12/27/17 08:00 Calcium 8.8 mg/dL (8.5-10.1) 12/27/17 08:00 Total Bilirubin 0.5 mg/dL (0.2-1) 12/27/17 08:00 AST 17 U/L (15-37) 12/27/17 08:00 ALT 22 U/L (13-61) 12/27/17 08:00 Alkaline Phosphatase 60 U/L (45-117) 12/27/17 08:00 Total Protein 6.5 g/dl (6.4-8.2) 12/27/17 08:00 Albumin 3.4 g/dl (3.4-5.0) 12/27/17 08:00 RPR Titer Reactive 1:4 (NONREACTIVE) H 12/27/17 08:00 T.pallidum Ab (MHA) Non reactive (NONREACTIVE) 12/27/17 08:00 lab noted Assessment: 12/29/17 11:41 withdrawal sx Plan: continue detox
[2017-12-29] MEDS: GABAPENTIN 300 MG CAPSULE (FP) PO SCH ×2 (13:39→22:17)
[2017-12-29] MEDS ORDERED: BACLOFEN 10 MG TABLET (FP) PO ONE (13:45)
[2017-12-29] MEDS: THIAMINE HCL 100 MG TABLET (FP) PO SCH (22:17)
[2017-12-29] MEDS: MINERAL OIL/PETROLAT/WATER TOPICAL CREAM 113 GM JAR TP SCH (22:17)
[2017-12-29] MEDS: QUEtiapine FUMARATE 100 MG TABLET (FP) PO SCH (22:17)
[2017-12-29] MEDS: MELATONIN 5 MG TABLETS PO PRN (22:17)
[2017-12-29] MEDS: DOCUSATE SODIUM 100 MG CAPSULE (FP) PO SCH (22:17)
[2017-12-30] MEDS ORDERED: METHADONE HCL 10 MG TABLET (FOR DETOX USE ONLY) PO ONE (10:00)
[2017-12-30] MEDS: PRENATAL VITAMINS W/ FOLIC ACID TABLET (FP) PO SCH (10:07)
[2017-12-30] MEDS: GABAPENTIN 300 MG CAPSULE (FP) PO SCH ×2 (10:07→22:15)
[2017-12-30] MEDS: NICOTINE 14 MG/24 HOURS TOPICAL PATCH TD SCH (10:08)
[2017-12-30] MEDS: IBUPROFEN 400 MG TABLET (FP) PO PRN ×2 (10:10→20:33)
--- NOTE | 2017-12-30 10:20 | PN ---
BHS Progress Note (SOAP) Subjective: feeling better no tremor no body ache less sweat social with peers in day room Objective: 12/30/17 10:19 Vital Signs Temperature 98.4 F 12/30/17 09:31 Pulse Rate 60 12/30/17 09:31 Respiratory Rate 18 12/30/17 09:31 Blood Pressure 119/67 12/30/17 09:31 O2 Sat by Pulse Oximetry (%) Laboratory Last Values WBC 9.7 K/mm3 (4.0-10.0) 12/27/17 08:00 RBC 4.95 M/mm3 (3.60-5.2) 12/27/17 08:00 Hgb 12.6 GM/dL (10.7-15.3) 12/27/17 08:00 Hct 39.9 % (32.4-45.2) 12/27/17 08:00 MCV 80.5 fl (80-96) 12/27/17 08:00 MCH 25.5 pg (25.7-33.7) L 12/27/17 08:00 MCHC 31.7 g/dl (32.0-36.0) L 12/27/17 08:00 RDW 16.0 % (11.6-15.6) H 12/27/17 08:00 Plt Count 251 K/MM3 (134-434) 12/27/17 08:00 MPV 8.4 fl (7.5-11.1) 12/27/17 08:00 Sodium 140 mmol/L (136-145) 12/27/17 08:00 Potassium 3.8 mmol/L (3.5-5.1) 12/27/17 08:00 Chloride 105 mmol/L (98-107) 12/27/17 08:00 Carbon Dioxide 26 mmol/L (21-32) 12/27/17 08:00 Anion Gap 8 MMOL/L (8-16) 12/27/17 08:00 BUN 13 mg/dL (7-18) 12/27/17 08:00 Creatinine 0.9 mg/dL (0.55-1.3) 12/27/17 08:00 Creat Clearance w eGFR > 60 (>60) 12/27/17 08:00 Random Glucose 100 mg/dL (74-106) 12/27/17 08:00 Calcium 8.8 mg/dL (8.5-10.1) 12/27/17 08:00 Total Bilirubin 0.5 mg/dL (0.2-1) 12/27/17 08:00 AST 17 U/L (15-37) 12/27/17 08:00 ALT 22 U/L (13-61) 12/27/17 08:00 Alkaline Phosphatase 60 U/L (45-117) 12/27/17 08:00 Total Protein 6.5 g/dl (6.4-8.2) 12/27/17 08:00 Albumin 3.4 g/dl (3.4-5.0) 12/27/17 08:00 RPR Titer Reactive 1:4 (NONREACTIVE) H 12/27/17 08:00 T.pallidum Ab (MHA) Non reactive (NONREACTIVE) 12/27/17 08:00 lab noted Assessment: 12/30/17 10:19 mild withdrawal sx Plan: medically supervised detox
[2017-12-30] MEDS ORDERED: BACLOFEN 10 MG TABLET (FP) PO ONE (12:50)
[2017-12-30] MEDS ORDERED: hydrOXYzine PAMOATE 25 MG CAPSULE (FP) PO PRN (17:32)
[2017-12-30] MEDS: THIAMINE HCL 100 MG TABLET (FP) PO SCH (22:15)
[2017-12-30] MEDS: DOCUSATE SODIUM 100 MG CAPSULE (FP) PO SCH (22:15)
[2017-12-30] MEDS: QUEtiapine FUMARATE 100 MG TABLET (FP) PO SCH (22:15)
[2017-12-30] MEDS: MELATONIN 5 MG TABLETS PO PRN (22:16)
[2017-12-30] MEDS: MINERAL OIL/PETROLAT/WATER TOPICAL CREAM 113 GM JAR TP SCH (22:16)
[2017-12-31] MEDS ORDERED: METHADONE HCL 5 MG TABLET (FOR DETOX USE ONLY) PO ONE (06:00)
--- NOTE | 2017-12-31 09:00 | DS ---
[facility] Detox Discharge Summary Admission Date: 12/26/17 Discharge Date: 12/31/17 - History Present History: Opioid Dependence Additional Comments: 37 years old female admitted on 12/26/17 for opiate withdrawal sx completed opiate detox regimen tolerated well denies opiate withdrawal sx alert oriented x 3 no acute distress aftercare [facility] - Physical Exam Results Vital Signs: Vital Signs Temperature 97.7 F 12/31/17 07:00 Pulse Rate 61 12/31/17 07:00 Respiratory Rate 18 12/31/17 07:00 Blood Pressure 136/57 L 12/31/17 07:00 O2 Sat by Pulse Oximetry (%) Pertinent Admission Physical Exam Findings: opiate withdrawal sx Vital Signs Temperature 98.2 F 12/31/17 09:58 Pulse Rate 78 12/31/17 09:58 Respiratory Rate 19 12/31/17 09:58 Blood Pressure 130/84 12/31/17 09:58 O2 Sat by Pulse Oximetry (%) Laboratory Last Values WBC 9.7 K/mm3 (4.0-10.0) 12/27/17 08:00 RBC 4.95 M/mm3 (3.60-5.2) 12/27/17 08:00 Hgb 12.6 GM/dL (10.7-15.3) 12/27/17 08:00 Hct 39.9 % (32.4-45.2) 12/27/17 08:00 MCV 80.5 fl (80-96) 12/27/17 08:00 MCH 25.5 pg (25.7-33.7) L 12/27/17 08:00 MCHC 31.7 g/dl (32.0-36.0) L 12/27/17 08:00 RDW 16.0 % (11.6-15.6) H 12/27/17 08:00 Plt Count 251 K/MM3 (134-434) 12/27/17 08:00 MPV 8.4 fl (7.5-11.1) 12/27/17 08:00 Sodium 140 mmol/L (136-145) 12/27/17 08:00 Potassium 3.8 mmol/L (3.5-5.1) 12/27/17 08:00 Chloride 105 mmol/L (98-107) 12/27/17 08:00 Carbon Dioxide 26 mmol/L (21-32) 12/27/17 08:00 Anion Gap 8 MMOL/L (8-16) 12/27/17 08:00 BUN 13 mg/dL (7-18) 12/27/17 08:00 Creatinine 0.9 mg/dL (0.55-1.3) 12/27/17 08:00 Creat Clearance w eGFR > 60 (>60) 12/27/17 08:00 Random Glucose 100 mg/dL (74-106) 12/27/17 08:00 Calcium 8.8 mg/dL (8.5-10.1) 12/27/17 08:00 Total Bilirubin 0.5 mg/dL (0.2-1) 12/27/17 08:00 AST 17 U/L (15-37) 12/27/17 08:00 ALT 22 U/L (13-61) 12/27/17 08:00 Alkaline Phosphatase 60 U/L (45-117) 12/27/17 08:00 Total Protein 6.5 g/dl (6.4-8.2) 12/27/17 08:00 Albumin 3.4 g/dl (3.4-5.0) 12/27/17 08:00 RPR Titer Reactive 1:4 (NONREACTIVE) H 12/27/17 08:00 T.pallidum Ab (MHA) Non reactive (NONREACTIVE) 12/27/17 08:00 lab noted - Treatment Hospital Course: Detox Protocol Followed, Detoxed Safely, Responded well, Discharged Condition Good, Rehab Referral Accepted Patient has Accepted a Rehab Referral to: [facility] - Medication Discharge Medications: Ambulatory Orders hydrOXYzine PAMOATE [Vistaril -] 50 mg PO Q8H PRN #30 capsule 04/01/17 Bupropion HCl [Bupropion Xl] 150 mg PO DAILY 05/18/17 Quetiapine Fumarate [Seroquel -] 100 mg PO HS 05/18/17 Gabapentin [Neurontin -] 300 mg PO Q8H #90 capsule 07/24/17 Albuterol Sulfate Inhaler - [Ventolin HFA Inhaler -] 2 puff IH Q4H PRN #1 inhaler 12/30/17 Albuterol Sulfate Inhaler - [Ventolin HFA Inhaler -] 2 puff IH Q4H PRN #1 inhaler 12/30/17 - Diagnosis (1) Nicotine dependence Current Visit: Yes Status: Acute Qualifiers: Nicotine product type: cigarettes Substance use status: in withdrawal Qualified Code(s): F17.213 - Nicotine dependence, cigarettes, with withdrawal (2) Opioid dependence with withdrawal Current Visit: Yes Status: Acute (3) Asthma Current Visit: Yes Status: Chronic Qualifiers: Asthma severity: mild Asthma persistence: intermittent Asthma complication type: unspecified Qualified Code(s): J45.20 - Mild intermittent asthma, uncomplicated (4) Drug-induced mood disorder Current Visit: Yes Status: Suspected (5) Syphilis Current Visit: Yes Status: Resolved - AMA Did Patient Leave Against Medical Advice: No
[2017-12-31] MEDS: PRENATAL VITAMINS W/ FOLIC ACID TABLET (FP) PO SCH (10:06)
[2017-12-31] MEDS: GABAPENTIN 300 MG CAPSULE (FP) PO SCH (10:06)
[2017-12-31] MEDS: NICOTINE 14 MG/24 HOURS TOPICAL PATCH TD SCH (10:06)
[2017-12-31 13:50] VITALS: BP 132/64; PULSE 64; TEMP 98.6
== END 2017-12-31 16:35 | disposition home or self-care (01) | DRG 773 ==
LOC: YASAS 18:20 → Y6N 21:25
PROC: HZ2ZZZZ Detoxification Services for Substance Abuse Treatment (ICD-10-PCS; principal; 2017-12-26)
DX: F11.23 Opioid dependence with withdrawal (principal); F12.20 Cannabis dependence, uncomplicated; F17.213 Nicotine dependence, cigarettes, with withdrawal; F42.9 Obsessive-compulsive disorder, unspecified; F19.24 Other psychoactive substance dependence with psychoactive substance-induced mood disorder; F19.282 Other psychoactive substance dependence with psychoactive substance-induced sleep disorder; F43.10 Post-traumatic stress disorder, unspecified; F31.9 Bipolar disorder, unspecified; F41.9 Anxiety disorder, unspecified; J45.20 Mild intermittent asthma, uncomplicated; G47.00 Insomnia, unspecified; R00.0 Tachycardia, unspecified; R63.8 Other symptoms and signs concerning food and fluid intake; Z87.42 Personal history of other diseases of the female genital tract; Z91.5 Personal history of self-harm
CPT/HCPCS: 36415; 80053; 85027; 86593; 86780; 93005; 93010; 94640; J0475; J7620

== ENCOUNTER 2019-06-09 08:58 | Inpatient (IN) | payer OTHER ==
[2019-06-09] MEDS ORDERED: METHADONE HCL 10 MG TABLET PO ONE (09:42)
[2019-06-09] MEDS ORDERED: ACETAMINOPHEN 325 MG TABLET (FP) PO ONE (09:43)
[2019-06-09] MEDS ORDERED: METHADONE HCL 10 MG TABLET ONE (09:44)
[2019-06-09] MEDS ORDERED: ACETAMINOPHEN 325 MG TABLET (FP) ONE (09:44)
[2019-06-09 10:54] LABS: EPI CELLS 10 /uL (0-25.1); HYALINE CASTS 0 /uL (0-3.1); URINE APPEARANCE CLEAR; URINE BACTERIA 279 /uL (0-1359); URINE BILIRUBIN NEGATIVE (NEGATIVE); URINE COLOR YELLOW; URINE GLUCOSE (UA) NEGATIVE (NEGATIVE); URINE KETONE NEGATIVE (NEGATIVE); URINE LEUK ESTERASE 1+ (NEGATIVE); URINE NITRITE NEGATIVE (NEGATIVE); URINE PROTEIN NEGATIVE (NEGATIVE); URINE UROBILINOGEN 0.2 mg/dL (0.2-1.0); URINE WBC 54 /uL (0-25.8)
[2019-06-09 11:03] LABS: BASO % 0.4 % (0-2.0); EOS % 0.5 % (0-4.5); HEMATOCRIT 40.1 % (32.4-45.2); HEMOGLOBIN 12.9 GM/dL (10.7-15.3); LYMPH % 14.1 % (8-40); MCH 25.7 pg (25.7-33.7); MCHC 32.3 g/dl (32.0-36.0); MEAN CELL VOLUME 79.5 fl (80-96); MEAN PLT VOLUME 8.4 fl (7.5-11.1); MONO % 5.7 % (3.8-10.2); NEUT % 79.3 % (42.8-82.8); PLATELET COUNT 299 K/MM3 (134-434); RBC 5.05 M/mm3 (3.60-5.2); RDW 16.4 % (11.6-15.6); WHITE BLOOD COUNT 14.7 K/mm3 (4.0-10.0)
[2019-06-09] MEDS ORDERED: CEFTRIAXONE 1,000 MG in DEXTROSE 5%-WATER - 50 ML IVPB ONE (11:52)
[2019-06-09] MEDS ORDERED: CEFTRIAXONE 1 GM/50 ML BAG ONE (11:58)
[2019-06-09] MEDS: DEXTROSE 5%-0.45% SALINE 1,000 ML IV SCH ×2 (12:05→21:46)
[2019-06-09 13:25] LABS: ALBUMIN 3.9 g/dl (3.4-5.0); BILIRUBIN,TOTAL 0.6 mg/dL (0.2-1); BLOOD UREA NITROGEN 8.3 mg/dL (7-18); CALCIUM 9.1 mg/dL (8.5-10.1); CREATININE 0.8 mg/dL (0.55-1.3); POTASSIUM 5.3 mmol/L (3.5-5.1); TOT PROT 7.4 g/dl (6.4-8.2)
[2019-06-09] MEDS ORDERED: ALBUTEROL SO4 HFA INHALER IH PRN (15:27)
[2019-06-09] MEDS ORDERED: MAGNESIUM HYDROX 2400MG/30ML ORAL SUSPENSION 30 ML CUP PO PRN (15:30)
[2019-06-09] MEDS ORDERED: NICOTINE POLACRILEX 2 MG GUM BUC PRN (15:30)
[2019-06-09] MEDS ORDERED: D5-1/2NS+20 MEQ KCL - 20 MEQ/1,000 ML INFUS.BAG IV SCH (15:30)
[2019-06-09 16:02] VITALS: BMI 24.9
[2019-06-09] MEDS: ENOXAPARIN NA (PORCINE) 40 MG/0.4 ML DISP.SYRIN SQ SCH (18:09)
[2019-06-09 20:40] LABS: HIV INTERPRETATION NEGATIVE (NEGATIVE)
[2019-06-09] MEDS: chlordiazePOXIDE HCL 10 MG CAPSULE PO SCH (21:41)
[2019-06-09] MEDS: QUEtiapine FUMARATE 25 MG TABLET PO SCH (21:41)
[2019-06-10] MEDS: DEXTROSE 5%-0.45% SALINE 1,000 ML IV SCH ×3 (06:35→21:19)
[2019-06-10] MEDS: ACETAMINOPHEN 325 MG TABLET (FP) PO PRN ×3 (06:47→21:30)
[2019-06-10 08:14] LABS: HEMATOCRIT 38.4 % (32.4-45.2); HEMOGLOBIN 12.3 GM/dL (10.7-15.3); MCH 25.5 pg (25.7-33.7); MCHC 32.1 g/dl (32.0-36.0); MEAN CELL VOLUME 79.4 fl (80-96); MEAN PLT VOLUME 8.6 fl (7.5-11.1); PLATELET COUNT 276 K/MM3 (134-434); RBC 4.84 M/mm3 (3.60-5.2); RDW 16.2 % (11.6-15.6); WHITE BLOOD COUNT 11.2 K/mm3 (4.0-10.0)
[2019-06-10 08:47] LABS: ALBUMIN 3.3 g/dl (3.4-5.0); BILIRUBIN,TOTAL 0.3 mg/dL (0.2-1); BLOOD UREA NITROGEN 9.1 mg/dL (7-18); CALCIUM 8.3 mg/dL (8.5-10.1); CREATININE 0.7 mg/dL (0.55-1.3); MAGNESIUM 2.3 mg/dL (1.8-2.4); PHOSPHOROUS 3.8 mg/dL (2.5-4.9); POTASSIUM 4.1 mmol/L (3.5-5.1); TOT PROT 6.5 g/dl (6.4-8.2)
[2019-06-10] MEDS ORDERED: cefTRIAXone SODIUM 1 GM VIAL ONE (08:56)
[2019-06-10] MEDS ORDERED: DEXTROSE 5%-WATER - 50 ML IVPB ONE (08:56)
[2019-06-10] MEDS: CEFTRIAXONE 1 GM in DEXTROSE 5%-WATER - 50 ML IVPB SCH (10:21)
[2019-06-10] MEDS: METHADONE HCL 10 MG TABLET PO SCH (10:22)
[2019-06-10] MEDS: ENOXAPARIN NA (PORCINE) 40 MG/0.4 ML DISP.SYRIN SQ SCH (10:22)
[2019-06-10] MEDS: chlordiazePOXIDE HCL 10 MG CAPSULE PO SCH ×2 (10:22→21:15)
[2019-06-10] MEDS: AMMONIUM LACTATE 12% LOTION 225 GM BOTTLE TP SCH (10:23)
[2019-06-10] MEDS: QUEtiapine FUMARATE 25 MG TABLET PO SCH (21:15)
[2019-06-11] MEDS: DEXTROSE 5%-0.45% SALINE 1,000 ML IV SCH ×2 (05:22→17:47)
[2019-06-11] MEDS ORDERED: cefTRIAXone SODIUM 1 GM VIAL ONE (09:20)
[2019-06-11] MEDS ORDERED: DEXTROSE 5%-WATER - 50 ML IVPB ONE (09:21)
[2019-06-11] MEDS: METHADONE HCL 10 MG TABLET PO SCH (09:31)
[2019-06-11] MEDS: ENOXAPARIN NA (PORCINE) 40 MG/0.4 ML DISP.SYRIN SQ SCH (09:32)
[2019-06-11] MEDS: chlordiazePOXIDE HCL 10 MG CAPSULE PO SCH ×2 (09:32→21:55)
[2019-06-11] MEDS: CEFTRIAXONE 1 GM in DEXTROSE 5%-WATER - 50 ML IVPB SCH (09:32)
[2019-06-11 10:07] LABS: BLOOD UREA NITROGEN 8.6 mg/dL (7-18); CALCIUM 8.5 mg/dL (8.5-10.1); CREATININE 0.6 mg/dL (0.55-1.3); POTASSIUM 4.3 mmol/L (3.5-5.1)
[2019-06-11 10:35] LABS: HEMATOCRIT 36.4 % (32.4-45.2); HEMOGLOBIN 11.7 GM/dL (10.7-15.3); MCH 25.7 pg (25.7-33.7); MCHC 32.3 g/dl (32.0-36.0); MEAN CELL VOLUME 79.7 fl (80-96); MEAN PLT VOLUME 8.4 fl (7.5-11.1); PLATELET COUNT 277 K/MM3 (134-434); RBC 4.56 M/mm3 (3.60-5.2); RDW 16.5 % (11.6-15.6); WHITE BLOOD COUNT 7.1 K/mm3 (4.0-10.0)
[2019-06-11] MEDS ORDERED: PT OWN MED DRAWER 7, Y5N ONE (10:56)
[2019-06-11] MEDS: AMMONIUM LACTATE 12% LOTION 225 GM BOTTLE TP SCH (17:53)
[2019-06-11] MEDS: QUEtiapine FUMARATE 25 MG TABLET PO SCH (21:55)
[2019-06-11] MEDS: ACETAMINOPHEN 325 MG TABLET (FP) PO PRN (21:55)
[2019-06-12] MEDS ORDERED: MELATONIN 5 MG TABLETS PO ONE ×2 (00:01→22:45)
[2019-06-12] MEDS: ENOXAPARIN NA (PORCINE) 40 MG/0.4 ML DISP.SYRIN SQ SCH (09:42)
[2019-06-12] MEDS: DEXTROSE 5%-0.45% SALINE 1,000 ML IV SCH ×2 (09:42→18:26)
[2019-06-12] MEDS: chlordiazePOXIDE HCL 10 MG CAPSULE PO SCH ×2 (09:42→22:02)
[2019-06-12] MEDS: METHADONE HCL 10 MG TABLET PO SCH (09:43)
[2019-06-12] MEDS: AMMONIUM LACTATE 12% LOTION 225 GM BOTTLE TP SCH (09:43)
[2019-06-12] MEDS: ACETAMINOPHEN 325 MG TABLET (FP) PO PRN ×2 (10:53→17:51)
[2019-06-12] MEDS: QUEtiapine FUMARATE 25 MG TABLET PO SCH (22:02)
[2019-06-13] MEDS: DEXTROSE 5%-0.45% SALINE 1,000 ML IV SCH ×2 (01:28→09:31)
[2019-06-13 08:23] LABS: BASO % 0.3 % (0-2.0); EOS % 1.8 % (0-4.5); HEMOGLOBIN 11.2 GM/dL (10.7-15.3); LYMPH % 49.1 % (8-40); MCH 26.2 pg (25.7-33.7); MEAN CELL VOLUME 79.4 fl (80-96); MEAN PLT VOLUME 8.1 fl (7.5-11.1); MONO % 7.4 % (3.8-10.2); NEUT % 41.4 % (42.8-82.8); PLATELET COUNT 265 K/MM3 (134-434); RBC 4.28 M/mm3 (3.60-5.2); RDW 16.1 % (11.6-15.6); WHITE BLOOD COUNT 7.5 K/mm3 (4.0-10.0)
[2019-06-13 08:50] LABS: BILIRUBIN,TOTAL 0.3 mg/dL (0.2-1); BLOOD UREA NITROGEN 15.1 mg/dL (7-18); CALCIUM 8.3 mg/dL (8.5-10.1); CREATININE 0.8 mg/dL (0.55-1.3); POTASSIUM 4.5 mmol/L (3.5-5.1); TOT PROT 5.6 g/dl (6.4-8.2)
[2019-06-13] MEDS: chlordiazePOXIDE HCL 10 MG CAPSULE PO SCH ×2 (09:32→21:54)
[2019-06-13] MEDS: ENOXAPARIN NA (PORCINE) 40 MG/0.4 ML DISP.SYRIN SQ SCH (09:32)
[2019-06-13] MEDS: ACETAMINOPHEN 325 MG TABLET (FP) PO PRN ×2 (09:32→15:03)
[2019-06-13] MEDS: AMMONIUM LACTATE 12% LOTION 225 GM BOTTLE TP SCH (09:33)
[2019-06-13] MEDS ORDERED: cloNIDine HCL 0.1 MG TABLET PO ONE (18:45)
[2019-06-13] MEDS: QUEtiapine FUMARATE 25 MG TABLET PO SCH (21:55)
[2019-06-13] MEDS ORDERED: MELATONIN 5 MG TABLETS PO ONE (22:12)
[2019-06-14] MEDS: ENOXAPARIN NA (PORCINE) 40 MG/0.4 ML DISP.SYRIN SQ SCH (09:56)
[2019-06-14] MEDS: chlordiazePOXIDE HCL 10 MG CAPSULE PO SCH (09:56)
[2019-06-14] MEDS: ACETAMINOPHEN 325 MG TABLET (FP) PO PRN (11:41)
[2019-06-14] MEDS: AMMONIUM LACTATE 12% LOTION 225 GM BOTTLE TP SCH (18:36)
[2019-06-14] MEDS ORDERED: MELATONIN 5 MG TABLETS PO ONE (19:28)
[2019-06-14] MEDS: QUEtiapine FUMARATE 25 MG TABLET PO SCH (21:25)
[2019-06-15] MEDS ORDERED: chlordiazePOXIDE 5 MG CAPSULE PO ONE (06:00)
[2019-06-15] MEDS: ACETAMINOPHEN 325 MG TABLET (FP) PO PRN (10:10)
[2019-06-15] MEDS: AMMONIUM LACTATE 12% LOTION 225 GM BOTTLE TP SCH (10:10)
[2019-06-15] MEDS: ENOXAPARIN NA (PORCINE) 40 MG/0.4 ML DISP.SYRIN SQ SCH (10:11)
[2019-06-15 13:45] VITALS: BP 131/78; PULSE 72; TEMP 98.2
== END 2019-06-15 15:25 | disposition home or self-care (01) | DRG 722 ==
LOC: JER 08:58 → JERBED 13:45 → J8W 14:56
PROVIDERS: ADMIT Internal Medicine; ATTEND Internal Medicine
DX: R50.9 Fever, unspecified (principal); J02.9 Acute pharyngitis, unspecified; F31.9 Bipolar disorder, unspecified; J45.20 Mild intermittent asthma, uncomplicated; F11.23 Opioid dependence with withdrawal; F10.230 Alcohol dependence with withdrawal, uncomplicated; F41.8 Other specified anxiety disorders
CPT/HCPCS: 36415; 71045-TC-FY; 73560-TC-LT-FY; 73560-TC-RT-FY; 80048; 80053; 81003; 83735; 84100; 84703; 85025; 85027; 87040; 87070; 87086; 87389; 87798; 87804; 87807; 87880; 93005; 93010; 99285-25; J0735; U0002

== ENCOUNTER 2020-01-30 18:11 | Inpatient (IN) | payer OTHER ==
[2020-01-30 20:25] VITALS: BMI 25.7
[2020-01-30] MEDS ORDERED: chlordiazePOXIDE HCL 25 MG CAPSULE PO PRN (20:51)
[2020-01-30] MEDS ORDERED: NICOTINE POLACRILEX 2 MG GUM BUC PRN (20:51)
[2020-01-30] MEDS ORDERED: MAGNESIUM HYDROX 2400MG/30ML ORAL SUSPENSION 30 ML CUP PO PRN (20:51)
[2020-01-30] MEDS ORDERED: ONDANSETRON *ODT* 4 MG TABLET SL PRN (20:51)
[2020-01-30] MEDS ORDERED: MENTHOL/PHENOL 1 EACH UD MM PRN (20:51)
[2020-01-30] MEDS ORDERED: METHADONE HCL 10 MG TABLET (FOR DETOX USE ONLY) PO ONE (20:51)
[2020-01-30] MEDS ORDERED: IBUPROFEN 400 MG TABLET (FP) PO PRN (20:51)
[2020-01-30] MEDS ORDERED: cloNIDine HCL 0.1 MG TABLET PO PRN (20:51)
[2020-01-30] MEDS ORDERED: MAG HYDROX/AL HYDROX/SIMETH 30 ML UNIT-DOSE CUP PO PRN (20:51)
[2020-01-30] MEDS ORDERED: ACETAMINOPHEN 325 MG TABLET (FP) PO PRN ×2 (20:51)
[2020-01-30] MEDS ORDERED: MAGNESIUM CITRATE 300 ML BOTTLE PO PRN (20:51)
[2020-01-30] MEDS ORDERED: BISMUTH SUBSALICYLATE 524 MG/30 ML UD PO PRN (20:51)
[2020-01-30] MEDS: MELATONIN 5 MG TABLETS PO SCH (22:21)
[2020-01-30] MEDS: THIAMINE HCL 100 MG TABLET (FP) PO SCH (22:21)
[2020-01-30] MEDS: chlordiazePOXIDE HCL 25 MG CAPSULE PO SCH (22:22)
[2020-01-30] MEDS: BUDESONIDE/FORMETEROL FUMARATE 160/4.5 mcg INHALER IH SCH (22:22)
[2020-01-31] MEDS: chlordiazePOXIDE HCL 25 MG CAPSULE PO SCH ×2 (05:39→10:13)
[2020-01-31] MEDS ORDERED: METHADONE HCL 10 MG TABLET (FOR DETOX USE ONLY) ONE (08:59)
[2020-01-31] MEDS ORDERED: METHADONE HCL 5 MG TABLET (FOR DETOX USE ONLY) ONE (08:59)
[2020-01-31] MEDS ORDERED: METHADONE (DETOX) 20 MG, METHADONE (DETOX) 5 MG PO ONE (10:00)
[2020-01-31 10:04] LABS: POTASSIUM 4.1 mmol/L (3.5-5.1)
[2020-01-31 10:05] LABS: HEMOGLOBIN 11.8 GM/dL (10.7-15.3); MCH 24.3 pg (25.7-33.7); MCHC 31.9 g/dl (32.0-36.0); MEAN CELL VOLUME 76.1 fl (80-96); MEAN PLT VOLUME 8.2 fl (7.5-11.1); PLATELET COUNT 334 K/MM3 (134-434); RBC 4.86 M/mm3 (3.60-5.2); WHITE BLOOD COUNT 8.8 K/mm3 (4.0-10.0)
[2020-01-31 10:06] LABS: ALBUMIN 3.5 g/dl (3.4-5.0); BLOOD UREA NITROGEN 14.4 mg/dL (7-18)
[2020-01-31 10:09] LABS: CREATININE 0.9 mg/dL (0.55-1.3)
[2020-01-31 10:11] LABS: BILIRUBIN,TOTAL 0.4 mg/dL (0.2-1); TOT PROT 6.5 g/dl (6.4-8.2)
[2020-01-31] MEDS: BUDESONIDE/FORMETEROL FUMARATE 160/4.5 mcg INHALER IH SCH ×2 (10:11→22:32)
[2020-01-31] MEDS: NICOTINE 21 MG/24 HOURS TOPICAL PATCH TD SCH (10:12)
[2020-01-31] MEDS: PRENATAL VITAMINS W/ FOLIC ACID TABLET (FP) PO SCH (10:13)
[2020-01-31] MEDS ORDERED: COLLOIDAL OATMEAL 1 BAR EACH TP PRN (14:22)
[2020-01-31] MEDS: METHOCARBAMOL 500 MG TABLET PO PRN (16:06)
[2020-01-31] MEDS: diazePAM 5 MG TABLET PO SCH ×2 (17:37→22:29)
[2020-01-31] MEDS: THIAMINE HCL 100 MG TABLET (FP) PO SCH (22:29)
[2020-01-31] MEDS: MELATONIN 5 MG TABLETS PO SCH (22:30)
[2020-02-01] MEDS: diazePAM 5 MG TABLET PO PRN ×2 (02:34→19:42)
[2020-02-01] MEDS ORDERED: chlordiazePOXIDE HCL 25 MG CAPSULE PO SCH (05:00)
[2020-02-01] MEDS: diazePAM 5 MG TABLET PO SCH ×4 (06:08→22:08)
[2020-02-01] MEDS: QUEtiapine FUMARATE 50 MG TABLET PO PRN ×2 (07:24→22:08)
[2020-02-01] MEDS ORDERED: METHADONE HCL 10 MG TABLET (FOR DETOX USE ONLY) PO ONE (10:00)
[2020-02-01] MEDS: PRENATAL VITAMINS W/ FOLIC ACID TABLET (FP) PO SCH (10:44)
[2020-02-01] MEDS: BUDESONIDE/FORMETEROL FUMARATE 160/4.5 mcg INHALER IH SCH ×2 (10:44→22:10)
[2020-02-01] MEDS: NICOTINE 21 MG/24 HOURS TOPICAL PATCH TD SCH (10:46)
[2020-02-01] MEDS ORDERED: MASKS NR ONE (13:30)
[2020-02-01] MEDS: THIAMINE HCL 100 MG TABLET (FP) PO SCH (22:08)
[2020-02-01] MEDS: MELATONIN 5 MG TABLETS PO SCH (22:09)
[2020-02-02] MEDS ORDERED: chlordiazePOXIDE HCL 10 MG CAPSULE PO PRN
[2020-02-02] MEDS ORDERED: chlordiazePOXIDE HCL 10 MG CAPSULE PO SCH (05:00)
[2020-02-02] MEDS: diazePAM 5 MG TABLET PO SCH ×3 (06:25→22:14)
[2020-02-02] MEDS: METHOCARBAMOL 500 MG TABLET PO PRN (06:27)
[2020-02-02] MEDS ORDERED: METHADONE HCL 10 MG TABLET (FOR DETOX USE ONLY) ONE (09:18)
[2020-02-02] MEDS ORDERED: METHADONE HCL 5 MG TABLET (FOR DETOX USE ONLY) ONE (09:18)
[2020-02-02] MEDS ORDERED: METHADONE (DETOX) 10 MG, METHADONE (DETOX) 5 MG PO ONE (10:00)
[2020-02-02] MEDS: PRENATAL VITAMINS W/ FOLIC ACID TABLET (FP) PO SCH (10:03)
[2020-02-02] MEDS: NICOTINE 21 MG/24 HOURS TOPICAL PATCH TD SCH (10:03)
[2020-02-02] MEDS: BUDESONIDE/FORMETEROL FUMARATE 160/4.5 mcg INHALER IH SCH ×2 (10:03→22:14)
[2020-02-02] MEDS: diazePAM 5 MG TABLET PO PRN ×2 (10:07→17:55)
[2020-02-02] MEDS: ALBUTEROL SO4 2.5/IPRATROPIUM 0.5 INH SOL 3 ML VIAL.NEB. NEB PRN (13:45)
[2020-02-02] MEDS: THIAMINE HCL 100 MG TABLET (FP) PO SCH (22:14)
[2020-02-02] MEDS: MELATONIN 5 MG TABLETS PO SCH (22:14)
[2020-02-02] MEDS: QUEtiapine FUMARATE 50 MG TABLET PO PRN (22:17)
[2020-02-03] MEDS ORDERED: chlordiazePOXIDE HCL 10 MG CAPSULE PO SCH (05:00)
[2020-02-03] MEDS: diazePAM 5 MG TABLET PO SCH ×2 (06:39→17:48)
[2020-02-03] MEDS ORDERED: METHADONE HCL 10 MG TABLET (FOR DETOX USE ONLY) PO ONE (10:00)
[2020-02-03] MEDS: PRENATAL VITAMINS W/ FOLIC ACID TABLET (FP) PO SCH (11:13)
[2020-02-03] MEDS: BUDESONIDE/FORMETEROL FUMARATE 160/4.5 mcg INHALER IH SCH ×2 (11:13→23:01)
[2020-02-03] MEDS: NICOTINE 21 MG/24 HOURS TOPICAL PATCH TD SCH (11:14)
[2020-02-03] MEDS: hydrOXYzine PAMOATE 25 MG CAPSULE (FP) PO PRN (15:44)
[2020-02-03 21:23] VITALS: BP 128/65
[2020-02-03] MEDS: QUEtiapine FUMARATE 50 MG TABLET PO PRN (22:40)
[2020-02-03] MEDS: MELATONIN 5 MG TABLETS PO SCH (22:40)
[2020-02-03] MEDS: THIAMINE HCL 100 MG TABLET (FP) PO SCH (22:40)
[2020-02-04] MEDS ORDERED: chlordiazePOXIDE HCL 10 MG CAPSULE PO ONE (05:00)
[2020-02-04] MEDS ORDERED: METHADONE HCL 5 MG TABLET (FOR DETOX USE ONLY) PO ONE (06:00)
[2020-02-04] MEDS ORDERED: diazePAM 5 MG TABLET PO ONE (06:00)
[2020-02-04] MEDS: ALBUTEROL SO4 2.5/IPRATROPIUM 0.5 INH SOL 3 ML VIAL.NEB. NEB PRN (06:54)
[2020-02-04 07:42] VITALS: PULSE 18; TEMP 97.3
[2020-02-04] MEDS: hydrOXYzine PAMOATE 25 MG CAPSULE (FP) PO PRN (09:43)
== END 2020-02-04 09:57 | disposition home or self-care (01) | DRG 773 ==
LOC: YASAS 18:11 → Y6N 20:52
PROVIDERS: ADMIT Allergy & Immunology; ATTEND Allergy & Immunology
PROC: HZ2ZZZZ Detoxification Services for Substance Abuse Treatment (ICD-10-PCS; principal; 2020-01-30)
DX: F10.230 Alcohol dependence with withdrawal, uncomplicated (principal); F11.23 Opioid dependence with withdrawal; F12.20 Cannabis dependence, uncomplicated; F17.210 Nicotine dependence, cigarettes, uncomplicated; F19.282 Other psychoactive substance dependence with psychoactive substance-induced sleep disorder; F19.24 Other psychoactive substance dependence with psychoactive substance-induced mood disorder; F31.9 Bipolar disorder, unspecified; F41.9 Anxiety disorder, unspecified; F43.10 Post-traumatic stress disorder, unspecified; G47.00 Insomnia, unspecified; J45.20 Mild intermittent asthma, uncomplicated; J02.9 Acute pharyngitis, unspecified; Z62.810 Personal history of physical and sexual abuse in childhood; Z86.19 Personal history of other infectious and parasitic diseases; Z91.5 Personal history of self-harm
CPT/HCPCS: 36415; 80053; 81025; 85027; 86780; 93005; 93010; 94640; C9803; Q0162; U0003

== ENCOUNTER 2021-02-12 11:58 | Inpatient (IN) | payer OTHER ==
[2021-02-12] MEDS ORDERED: IBUPROFEN 400 MG TABLET (FP) PO PRN (12:31)
[2021-02-12] MEDS ORDERED: ONDANSETRON *ODT* 4 MG TABLET SL PRN (12:31)
[2021-02-12] MEDS ORDERED: BISMUTH SUBSALICYLATE 524 MG/30 ML PO PRN (12:31)
[2021-02-12] MEDS ORDERED: NICOTINE 10 MG CARTRIDGE (INHALER) IH PRN (12:31)
[2021-02-12] MEDS ORDERED: MAGNESIUM HYDROX 2400MG/30ML ORAL SUSPENSION 30 ML CUP PO PRN (12:31)
[2021-02-12] MEDS ORDERED: ACETAMINOPHEN 325 MG TABLET (FP) PO PRN ×2 (12:31)
[2021-02-12] MEDS ORDERED: cloNIDine HCL 0.1 MG TABLET PO PRN (12:31)
[2021-02-12] MEDS ORDERED: MAG HYDROX/AL HYDROX/SIMETH 30 ML UNIT-DOSE CUP PO PRN (12:31)
[2021-02-12] MEDS ORDERED: MAGNESIUM CITRATE 300 ML BOTTLE PO PRN (12:31)
[2021-02-12] MEDS ORDERED: METHOCARBAMOL 500 MG TABLET PO PRN (12:31)
[2021-02-12] MEDS ORDERED: MENTHOL/PHENOL 1 EACH UD MM PRN (12:31)
[2021-02-12] MEDS ORDERED: methaDONE HCL 10 MG TABLET (FOR DETOX USE ONLY) PO ONE (13:15)
[2021-02-12] MEDS: PRENATAL VITAMINS W/ FOLIC ACID TABLET (FP) PO SCH (14:41)
[2021-02-12] MEDS: NICOTINE 14 MG/24 HOURS TOPICAL PATCH TD SCH (14:41)
[2021-02-12 14:46] LABS: ALBUMIN 3.5 g/dl (3.4-5.0); CALCIUM 8.8 mg/dL (8.5-10.1)
[2021-02-12 14:47] LABS: BLOOD UREA NITROGEN 13.1 mg/dL (7-18)
[2021-02-12 14:50] LABS: CREATININE 0.7 mg/dL (0.55-1.3)
[2021-02-12 14:51] LABS: BILIRUBIN,TOTAL 0.2 mg/dL (0.2-1); HEMATOCRIT 35.2 % (32.4-45.2); HEMOGLOBIN 11.3 GM/dL (10.7-15.3); MCH 24.7 pg (25.7-33.7); MCHC 32.2 g/dl (32.0-36.0); MEAN CELL VOLUME 76.8 fl (80-96); PLATELET COUNT 292 10^3/uL (134-434); RBC 4.58 M/mm3 (3.60-5.2); RDW 18.9 % (11.6-15.6); TOT PROT 6.5 g/dl (6.4-8.2)
[2021-02-12] MEDS: hydrOXYzine PAMOATE 25 MG CAPSULE (FP) PO SCH ×3 (15:09→22:42)
[2021-02-12] MEDS: BUDESONIDE/FORMETEROL FUMARATE 160/4.5 mcg INHALER IH SCH (22:42)
[2021-02-12] MEDS: QUEtiapine FUMARATE 50 MG TABLET PO SCH (22:42)
[2021-02-12] MEDS: MELATONIN 5 MG TABLETS PO SCH (22:42)
[2021-02-12] MEDS: THIAMINE HCL 100 MG TABLET (FP) PO SCH (22:42)
[2021-02-13] MEDS: hydrOXYzine PAMOATE 25 MG CAPSULE (FP) PO SCH ×2 (07:11→11:37)
[2021-02-13] MEDS ORDERED: methaDONE HCL 10 MG TABLET (FOR DETOX USE ONLY) ONE (09:27)
[2021-02-13] MEDS ORDERED: COLLOIDAL OATMEAL 1 BAR EACH TP PRN (10:04)
[2021-02-13] MEDS: BUDESONIDE/FORMETEROL FUMARATE 160/4.5 mcg INHALER IH SCH ×2 (11:22→22:47)
[2021-02-13] MEDS: PRENATAL VITAMINS W/ FOLIC ACID TABLET (FP) PO SCH (11:23)
[2021-02-13] MEDS: AMMONIUM LACTATE 12% LOTION 225 GM BOTTLE TP PRN (11:25)
[2021-02-13] MEDS: diazePAM 5 MG TABLET PO PRN ×2 (11:29→18:53)
[2021-02-13] MEDS: NICOTINE 14 MG/24 HOURS TOPICAL PATCH TD SCH (11:31)
[2021-02-13] MEDS: MELATONIN 5 MG TABLETS PO SCH (22:47)
[2021-02-13] MEDS: QUEtiapine FUMARATE 50 MG TABLET PO SCH (22:47)
[2021-02-13] MEDS: THIAMINE HCL 100 MG TABLET (FP) PO SCH (22:47)
[2021-02-14] MEDS: diazePAM 5 MG TABLET PO PRN ×3 (09:58→23:45)
[2021-02-14] MEDS: PRENATAL VITAMINS W/ FOLIC ACID TABLET (FP) PO SCH (09:59)
[2021-02-14] MEDS ORDERED: methaDONE HCL 10 MG TABLET (FOR DETOX USE ONLY) PO ONE (10:00)
[2021-02-14] MEDS: NICOTINE 14 MG/24 HOURS TOPICAL PATCH TD SCH (10:00)
[2021-02-14] MEDS: BUDESONIDE/FORMETEROL FUMARATE 160/4.5 mcg INHALER IH SCH ×2 (10:29→23:08)
[2021-02-14] MEDS: THIAMINE HCL 100 MG TABLET (FP) PO SCH (22:24)
[2021-02-14] MEDS: MELATONIN 5 MG TABLETS PO SCH (22:24)
[2021-02-14] MEDS: QUEtiapine FUMARATE 50 MG TABLET PO SCH (22:24)
[2021-02-15] MEDS: diazePAM 5 MG TABLET PO PRN ×3 (09:09→19:23)
[2021-02-15] MEDS ORDERED: methaDONE HCL 10 MG TABLET (FOR DETOX USE ONLY) ONE (09:28)
[2021-02-15] MEDS: BUDESONIDE/FORMETEROL FUMARATE 160/4.5 mcg INHALER IH SCH ×2 (10:48→22:58)
[2021-02-15] MEDS: PRENATAL VITAMINS W/ FOLIC ACID TABLET (FP) PO SCH (10:49)
[2021-02-15] MEDS: NICOTINE 14 MG/24 HOURS TOPICAL PATCH TD SCH (10:50)
[2021-02-15] MEDS: hydrOXYzine PAMOATE 25 MG CAPSULE (FP) PO PRN ×2 (10:50→14:48)
[2021-02-15] MEDS: AMMONIUM LACTATE 12% LOTION 225 GM BOTTLE TP PRN (12:02)
[2021-02-15] MEDS: THIAMINE HCL 100 MG TABLET (FP) PO SCH (22:15)
[2021-02-15] MEDS: QUEtiapine FUMARATE 50 MG TABLET PO SCH (22:16)
[2021-02-15] MEDS: MELATONIN 5 MG TABLETS PO SCH (22:16)
[2021-02-16] MEDS: diazePAM 5 MG TABLET PO PRN (05:45)
[2021-02-16 08:45] VITALS: BP 113/69; PULSE 99; TEMP 96.8
[2021-02-16] MEDS ORDERED: methaDONE HCL 10 MG TABLET (FOR DETOX USE ONLY) PO ONE (10:00)
[2021-02-16] MEDS: NICOTINE 14 MG/24 HOURS TOPICAL PATCH TD SCH (10:53)
[2021-02-16] MEDS: BUDESONIDE/FORMETEROL FUMARATE 160/4.5 mcg INHALER IH SCH (10:53)
[2021-02-16] MEDS: PRENATAL VITAMINS W/ FOLIC ACID TABLET (FP) PO SCH (10:53)
== END 2021-02-16 12:58 | disposition home or self-care (01) | DRG 773 ==
LOC: YASAS 11:58 → Y3N 13:04
PROVIDERS: ADMIT Allergy & Immunology; ATTEND Allergy & Immunology
PROC: HZ2ZZZZ Detoxification Services for Substance Abuse Treatment (ICD-10-PCS; principal; 2021-02-12)
DX: F11.23 Opioid dependence with withdrawal (principal); F12.20 Cannabis dependence, uncomplicated; F17.210 Nicotine dependence, cigarettes, uncomplicated; F19.282 Other psychoactive substance dependence with psychoactive substance-induced sleep disorder; F19.24 Other psychoactive substance dependence with psychoactive substance-induced mood disorder; F31.9 Bipolar disorder, unspecified; F43.10 Post-traumatic stress disorder, unspecified; G47.00 Insomnia, unspecified; J45.20 Mild intermittent asthma, uncomplicated; M54.50 Low back pain, unspecified; G89.29 Other chronic pain; Z62.810 Personal history of physical and sexual abuse in childhood; Z86.19 Personal history of other infectious and parasitic diseases
CPT/HCPCS: 36415; 80053; 81025; 85027; 86780; C9803; U0003; U0005

== ENCOUNTER 2023-04-07 20:18 | Inpatient (IN) | payer OTHER ==
[2023-04-07 21:03] VITALS: BMI 28.3
[2023-04-07] MEDS ORDERED: ACETAMINOPHEN 325 MG TABLET (FP) PO PRN (21:30)
[2023-04-07] MEDS ORDERED: DICYCLOMINE HCL 10 MG CAPSULE PO PRN (21:30)
[2023-04-07] MEDS ORDERED: POLYETHYLENE GLYCOL (HEALTHYLAX) 3350 17 GM PACKET PO PRN (21:30)
[2023-04-07] MEDS ORDERED: BENZONATATE 200 MG CAPSULE PO PRN (21:30)
[2023-04-07] MEDS ORDERED: LOPERAMIDE HCL 2 MG CAPSULE PO PRN (21:30)
[2023-04-07] MEDS ORDERED: ONDANSETRON *ODT* 4 MG TABLET SL PRN (21:30)
[2023-04-07] MEDS ORDERED: BISMUTH SUBSALICYLATE 524 MG/30 ML PO PRN (21:30)
[2023-04-07] MEDS ORDERED: NALOXONE HCL 0.4 MG/ML VIAL IM PRN (21:30)
[2023-04-07] MEDS ORDERED: NALOXONE HCL (KLOXXADO) 8 MG SPRAY NS PRN (21:30)
[2023-04-07] MEDS ORDERED: MAG HYDROX/AL HYDROX/SIMETH 30 ML UNIT-DOSE CUP PO PRN (21:30)
[2023-04-07] MEDS ORDERED: NICOTINE POLACRILEX 4 MG GUM BUC PRN (21:30)
[2023-04-07] MEDS ORDERED: IBUPROFEN 400 MG TABLET (FP) PO PRN (21:30)
[2023-04-07] MEDS ORDERED: BENZOCAINE/MENTHOL (CHLORASEPTIC ) LOZENGE MM PRN (21:30)
[2023-04-07] MEDS ORDERED: guaiFENesin 600 MG TABLET.ER (FP) PO PRN (21:30)
[2023-04-07] MEDS ORDERED: MELATONIN 5 MG TABLETS ONE (21:45)
[2023-04-07] MEDS ORDERED: ONDANSETRON *ODT* 4 MG TABLET ONE (21:45)
[2023-04-07] MEDS ORDERED: hydrOXYzine PAMOATE 25 MG CAPSULE (FP) PO ONE (21:45)
[2023-04-07] MEDS ORDERED: IBUPROFEN 600 MG TABLET (FP) PO ONE (21:46)
[2023-04-07] MEDS: hydrOXYzine PAMOATE 25 MG CAPSULE (FP) PO PRN (21:56)
[2023-04-07] MEDS: MELATONIN 5 MG TABLETS PO SCH (23:31)
[2023-04-07] MEDS: THIAMINE HCL 100 MG TABLET (FP) PO SCH (23:31)
[2023-04-08] MEDS ORDERED: ALBUTEROL SO4 HFA INHALER IH PRN (09:02)
[2023-04-08] MEDS: PRENATAL VITAMINS W/ FOLIC ACID TABLET (FP) PO SCH (09:29)
[2023-04-08] MEDS: METHOCARBAMOL 500 MG TABLET PO PRN ×2 (09:29→17:25)
[2023-04-08] MEDS: BUDESONIDE/FORMETEROL FUMARATE 160/4.5 mcg INHALER IH SCH ×2 (09:31→22:20)
[2023-04-08] MEDS: NICOTINE 14 MG/24 HOURS TOPICAL PATCH TD SCH (09:31)
[2023-04-08] MEDS: MAGNESIUM HYDROX 2400MG/30ML ORAL SUSPENSION 30 ML CUP PO PRN (09:33)
[2023-04-08] MEDS ORDERED: methaDONE HCL 10 MG TABLET (FOR DETOX USE ONLY) PO ONE (10:00)
[2023-04-08 11:39] LABS: HEMATOCRIT 36.7 % (32.4-45.2); HEMOGLOBIN 11.4 GM/dL (10.7-15.3); MCHC 31.1 g/dl (32.0-36.0); MEAN CELL VOLUME 77.2 fl (80-96); MEAN PLT VOLUME 8.2 fl (7.5-11.1); PLATELET COUNT 286 10^3/uL (134-434); RBC 4.75 M/mm3 (3.60-5.2); WHITE BLOOD COUNT 7.5 K/mm3 (4.0-10.0)
[2023-04-08 11:51] LABS: CHLORIDE 106 mmol/L (98-107); SODIUM 139 mmol/L (136-145)
[2023-04-08 12:05] LABS: ALBUMIN 3.2 g/dl (3.4-5.0); ANION GAP 4 mmol/L (4-13); BLOOD UREA NITROGEN 11.6 mg/dL (7-18); CALCIUM 9.1 mg/dL (8.5-10.1); CO2 29 mmol/L (21-32); GLUCOSE,RANDOM 88 mg/dL (74-106)
[2023-04-08 12:09] LABS: SGOT/AST 18 U/L (15-37); TOT PROT 6.2 g/dl (6.4-8.2)
[2023-04-08 12:11] LABS: ALK PHOS 65 U/L (45-117); CREATININE 0.7 mg/dL (0.55-1.3); SGPT/ALT 17 U/L (13-61)
[2023-04-08 12:13] LABS: BILIRUBIN,TOTAL 0.1 mg/dL (0.2-1)
[2023-04-08] MEDS: diazePAM 5 MG TABLET PO PRN ×2 (17:24→21:54)
[2023-04-08] MEDS: hydrOXYzine PAMOATE 25 MG CAPSULE (FP) PO PRN (17:25)
[2023-04-08] MEDS: QUEtiapine FUMARATE 50 MG TABLET PO SCH (21:54)
[2023-04-08] MEDS: THIAMINE HCL 100 MG TABLET (FP) PO SCH (21:55)
[2023-04-08] MEDS: MELATONIN 5 MG TABLETS PO SCH (21:56)
[2023-04-09] MEDS: BUDESONIDE/FORMETEROL FUMARATE 160/4.5 mcg INHALER IH SCH ×2 (09:34→22:20)
[2023-04-09] MEDS: PRENATAL VITAMINS W/ FOLIC ACID TABLET (FP) PO SCH (09:34)
[2023-04-09] MEDS: METHOCARBAMOL 500 MG TABLET PO PRN ×2 (09:34→22:20)
[2023-04-09] MEDS: NICOTINE 14 MG/24 HOURS TOPICAL PATCH TD SCH (09:35)
[2023-04-09] MEDS: MAGNESIUM HYDROX 2400MG/30ML ORAL SUSPENSION 30 ML CUP PO PRN (09:37)
[2023-04-09] MEDS ORDERED: COLLOIDAL OATMEAL 1 BAR EACH TP PRN (11:11)
[2023-04-09] MEDS ORDERED: amLODIPine BESYLATE 2.5 MG TABLET (FP) PO ONE (13:45)
[2023-04-09] MEDS: hydrOXYzine PAMOATE 25 MG CAPSULE (FP) PO PRN (17:19)
[2023-04-09] MEDS: IBUPROFEN 600 MG TABLET (FP) PO PRN (17:19)
[2023-04-09] MEDS: MELATONIN 5 MG TABLETS PO SCH (22:19)
[2023-04-09] MEDS: QUEtiapine FUMARATE 50 MG TABLET PO SCH (22:19)
[2023-04-09] MEDS: THIAMINE HCL 100 MG TABLET (FP) PO SCH (22:19)
[2023-04-10] MEDS ORDERED: methaDONE HCL 10 MG TABLET (FOR DETOX USE ONLY) PO ONE (10:00)
[2023-04-10] MEDS: BUDESONIDE/FORMETEROL FUMARATE 160/4.5 mcg INHALER IH SCH ×2 (10:10→22:21)
[2023-04-10] MEDS: NICOTINE 14 MG/24 HOURS TOPICAL PATCH TD SCH (10:11)
[2023-04-10] MEDS: PRENATAL VITAMINS W/ FOLIC ACID TABLET (FP) PO SCH (10:11)
[2023-04-10] MEDS: hydrOXYzine PAMOATE 25 MG CAPSULE (FP) PO PRN ×2 (10:11→17:41)
[2023-04-10] MEDS: METHOCARBAMOL 500 MG TABLET PO PRN ×2 (10:13→17:41)
[2023-04-10] MEDS: THIAMINE HCL 100 MG TABLET (FP) PO SCH (22:21)
[2023-04-10] MEDS: QUEtiapine FUMARATE 50 MG TABLET PO SCH (22:21)
[2023-04-10] MEDS: MELATONIN 5 MG TABLETS PO SCH (22:21)
[2023-04-11] MEDS: PRENATAL VITAMINS W/ FOLIC ACID TABLET (FP) PO SCH (10:10)
[2023-04-11] MEDS: NICOTINE 14 MG/24 HOURS TOPICAL PATCH TD SCH (10:11)
[2023-04-11] MEDS: BUDESONIDE/FORMETEROL FUMARATE 160/4.5 mcg INHALER IH SCH ×2 (10:12→22:21)
[2023-04-11] MEDS: IBUPROFEN 600 MG TABLET (FP) PO PRN (18:54)
[2023-04-11] MEDS: METHOCARBAMOL 500 MG TABLET PO PRN (22:21)
[2023-04-11] MEDS: MELATONIN 5 MG TABLETS PO SCH (22:21)
[2023-04-11] MEDS: THIAMINE HCL 100 MG TABLET (FP) PO SCH (22:21)
[2023-04-11] MEDS: QUEtiapine FUMARATE 50 MG TABLET PO SCH (22:21)
[2023-04-12] MEDS: PRENATAL VITAMINS W/ FOLIC ACID TABLET (FP) PO SCH (09:31)
[2023-04-12] MEDS: BUDESONIDE/FORMETEROL FUMARATE 160/4.5 mcg INHALER IH SCH ×2 (09:31→22:41)
[2023-04-12] MEDS: NICOTINE 14 MG/24 HOURS TOPICAL PATCH TD SCH (09:32)
[2023-04-12] MEDS ORDERED: methaDONE HCL 10 MG TABLET (FOR DETOX USE ONLY) PO ONE (10:00)
[2023-04-12] MEDS: METHOCARBAMOL 500 MG TABLET PO PRN ×2 (15:18→22:36)
[2023-04-12] MEDS: IBUPROFEN 600 MG TABLET (FP) PO PRN (15:18)
[2023-04-12] MEDS: MELATONIN 5 MG TABLETS PO SCH (22:36)
[2023-04-12] MEDS: THIAMINE HCL 100 MG TABLET (FP) PO SCH (22:36)
[2023-04-12] MEDS: QUEtiapine FUMARATE 50 MG TABLET PO SCH (22:36)
[2023-04-13 06:52] VITALS: TEMP 98.4
[2023-04-13] MEDS: PRENATAL VITAMINS W/ FOLIC ACID TABLET (FP) PO SCH (09:07)
[2023-04-13] MEDS: BUDESONIDE/FORMETEROL FUMARATE 160/4.5 mcg INHALER IH SCH (09:07)
[2023-04-13] MEDS: NICOTINE 14 MG/24 HOURS TOPICAL PATCH TD SCH (09:08)
[2023-04-13 09:46] VITALS: BP 129/92; PULSE 100; RESP 17
== END 2023-04-13 10:45 | disposition home or self-care (01) | DRG 773 ==
LOC: YASAS 20:18 → Y6N 22:36
PROVIDERS: ADMIT Allergy & Immunology; ATTEND Allergy & Immunology
PROC: HZ2ZZZZ Detoxification Services for Substance Abuse Treatment (ICD-10-PCS; principal; 2023-04-07)
DX: F11.23 Opioid dependence with withdrawal (principal); F12.20 Cannabis dependence, uncomplicated; F17.210 Nicotine dependence, cigarettes, uncomplicated; F41.9 Anxiety disorder, unspecified; J45.20 Mild intermittent asthma, uncomplicated; Z86.19 Personal history of other infectious and parasitic diseases
CPT/HCPCS: 36415; 80053; 80307; 81025; 85027; 86780; 87635; 93005; 93010; Q0162

== ENCOUNTER 2024-06-07 15:12 | Inpatient (IN) | payer OTHER ==
[2024-06-07 16:04] VITALS: BMI 27.4
[2024-06-07] MEDS ORDERED: LOPERAMIDE HCL 2 MG CAPSULE PO PRN (16:23)
[2024-06-07] MEDS ORDERED: ACETAMINOPHEN 325 MG TABLET (FP) PO PRN (16:23)
[2024-06-07] MEDS ORDERED: BISMUTH SUBSALICYLATE 524 MG/30 ML PO PRN (16:23)
[2024-06-07] MEDS ORDERED: methaDONE HCL 10 MG TABLET (FOR DETOX USE ONLY) PO ONE (16:23)
[2024-06-07] MEDS ORDERED: DICYCLOMINE HCL 10 MG CAPSULE PO PRN (16:23)
[2024-06-07] MEDS ORDERED: MAG HYDROX/AL HYDROX/SIMETH 30 ML UNIT-DOSE CUP PO PRN (16:23)
[2024-06-07] MEDS ORDERED: IBUPROFEN 400 MG TABLET (FP) PO PRN (16:23)
[2024-06-07] MEDS ORDERED: guaiFENesin 600 MG TABLET.ER (FP) PO PRN (16:23)
[2024-06-07] MEDS ORDERED: BENZONATATE 200 MG CAPSULE PO PRN (16:23)
[2024-06-07] MEDS ORDERED: POLYETHYLENE GLYCOL (HEALTHYLAX) 3350 17 GM PACKET PO PRN (16:23)
[2024-06-07] MEDS ORDERED: NALOXONE (NARCAN) HCL 4 MG/0.1 ML SPRAY NS PRN (16:23)
[2024-06-07] MEDS ORDERED: IBUPROFEN 600 MG TABLET (FP) PO PRN (16:23)
[2024-06-07] MEDS ORDERED: NICOTINE POLACRILEX 2 MG GUM BUC PRN (16:23)
[2024-06-07] MEDS ORDERED: methaDONE HCL 10 MG TABLET (FOR DETOX USE ONLY) ONE (21:10)
[2024-06-07] MEDS ORDERED: cloNIDine HCL 0.1 MG TABLET ONE (21:10)
[2024-06-07] MEDS: methaDONE HCL 10 MG TABLET (FOR DETOX USE ONLY) PO ONE (21:12)
[2024-06-07] MEDS: cloNIDine HCL 0.1 MG TABLET PO SCH (21:13)
[2024-06-07] MEDS: THIAMINE 100 MG TABLET PO SCH (21:57)
[2024-06-07] MEDS: MELATONIN 5 MG TABLETS PO SCH (21:57)
[2024-06-07] MEDS: MIRTAZAPINE 15 MG TABLET (FP) PO SCH (21:59)
[2024-06-07] MEDS: BUPRENORPHINE/NALOXONE 0.5 MG/0.125 MG FILM SL ONE (22:03)
[2024-06-08] MEDS: METHOCARBAMOL 500 MG TABLET PO PRN (10:45)
[2024-06-08] MEDS: BUPRENORPHINE/NALOXONE 0.5 MG/0.125 MG FILM SL SCH (10:48)
[2024-06-08] MEDS: BENZOCAINE/MENTHOL (CHLORASEPTIC ) LOZENGE MM PRN (10:49)
[2024-06-08] MEDS: PRENATAL VITAMINS W/ FOLIC ACID TABLET (FP) PO SCH (10:49)
[2024-06-08 13:06] LABS: CHLORIDE 109 mmol/L (98-107); POTASSIUM 3.9 mmol/L (3.5-5.1); SODIUM 143 mmol/L (136-145)
[2024-06-08 13:11] LABS: HEMATOCRIT 37.2 % (32.4-45.2); MCH 24.7 pg (25.7-33.7); MCHC 32.4 g/dl (32.0-36.0); MEAN CELL VOLUME 76.2 fl (80-96); MEAN PLT VOLUME 8.4 fl (7.5-11.1); PLATELET COUNT 256 10^3/uL (134-434); RBC 4.88 M/mm3 (3.60-5.2); RDW 18.5 % (11.6-15.6); WHITE BLOOD COUNT 8.3 K/mm3 (4.0-10.0)
[2024-06-08 13:12] LABS: ALBUMIN 3.5 g/dl (3.4-5.0); ANION GAP 6 mmol/L (4-13); BLOOD UREA NITROGEN 14.4 mg/dL (7-18); CO2 28 mmol/L (21-32)
[2024-06-08 13:13] LABS: GLUCOSE,RANDOM 118 mg/dL (74-106)
[2024-06-08 13:15] LABS: CREATININE 0.8 mg/dL (0.55-1.3); SGOT/AST 16 U/L (15-37); SGPT/ALT 21 U/L (13-61)
[2024-06-08 13:17] LABS: BILIRUBIN,TOTAL 0.6 mg/dL (0.2-1); TOT PROT 6.3 g/dl (6.4-8.2)
[2024-06-08 13:18] LABS: ALK PHOS 69 U/L (45-117)
[2024-06-08] MEDS: diazePAM 5 MG TABLET PO PRN (13:45)
[2024-06-08] MEDS: ONDANSETRON *ODT* 4 MG TABLET SL PRN (17:24)
[2024-06-09] MEDS: hydrOXYzine PAMOATE 25 MG CAPSULE (FP) PO PRN (01:09)
[2024-06-09] MEDS: BUPRENORPHINE/NALOXONE 2 MG/0.5 MG FILM PACKET SL SCH (09:27)
[2024-06-09] MEDS: methaDONE HCL 10 MG TABLET (FOR DETOX USE ONLY) PO ONE (09:28)
[2024-06-09] MEDS: MAGNESIUM HYDROX 2400MG/30ML ORAL SUSPENSION 30 ML CUP PO PRN (10:56)
[2024-06-10] MEDS: BUPRENORPHINE/NALOXONE 4 MG/1 MG FILM PACKET SL SCH (09:45)
[2024-06-11] MEDS: BUPRENORPHINE/NALOXONE 8 MG/2 MG FILM PACKET SL SCH (09:23)
[2024-06-11] MEDS: methaDONE HCL 10 MG TABLET (FOR DETOX USE ONLY) PO ONE (09:29)
[2024-06-11] MEDS ORDERED: ALBUTEROL SO4 HFA INHALER IH PRN (11:27)
[2024-06-11] MEDS: BUDESONIDE/FORMETEROL FUMARATE 160/4.5 mcg INHALER IH SCH (11:45)
[2024-06-12 09:34] VITALS: BP 115/76; PULSE 90; RESP 18; TEMP 98.4
[2024-06-12] MEDS: BUPRENORPHINE/NALOXONE 8 MG/2 MG FILM PACKET SL SCH (09:45)
== END 2024-06-12 09:48 | disposition home or self-care (01) | DRG 773 ==
LOC: YASAS 15:12 → Y6N 21:11
PROVIDERS: ADMIT Allergy & Immunology; ATTEND Allergy & Immunology
PROC: HZ2ZZZZ Detoxification Services for Substance Abuse Treatment (ICD-10-PCS; principal; 2024-06-07)
DX: F11.23 Opioid dependence with withdrawal (principal); F12.20 Cannabis dependence, uncomplicated; F17.210 Nicotine dependence, cigarettes, uncomplicated; J45.20 Mild intermittent asthma, uncomplicated
CPT/HCPCS: 36415; 80053; 80305; 80307; 81025; 85027; 86780; 87070; 87075; 87102; 87116; 87205; 87206; 87210; 93005; 93010; Q0162